=== PATIENT | female | born 1960 | race Caucasian/White ===

== ENCOUNTER 2024-05-26 20:40 | Inpatient (IN) | payer MEDICAID, SELFPAY ==
[2024-05-26 20:40] VITALS: BMI 23.7
--- NOTE | 2024-05-26 21:23 | XR_ITS ---
Examination: PA chest single view Technique: Upright PA chest single view Exam date and time: May 26, 2024 2140 hrs. Comparison September 19, 2017 Indications: Smoking history 10 years coughing 4 days Findings: Mild pneumonia right base and right middle lobe Mild prominence cardiac contour Right subclavian Port-A-Cath tip satisfactory position No pulmonary edema Impression: Mild pneumonia right middle lobe and right base
--- NOTE | 2024-05-26 21:24 | XR_ITS ---
Examination: CT abdomen with intravenous contrast CT pelvis with intravenous contrast 2-D coronal reconstructions 2-D sagittal reconstructions Date and time of exam:May 26, 2024 10:40 PM Indications: Left lower abdominal pain beginning today, history kidney stones. CTDI: vol (mGy) 8.5 DLP: (mGycm) 560 Technique: Multiple axial sections of the abdomen and pelvis have been obtained. 64 slice high-resolution scanner used. 3 mm axial sections have been obtained, post intravenous injection 60 cc [id number] 2-D sagittal, coronal reconstructions obtained. Low dose protocols were performed. One or more of the following dose reduction techniques were used; automated exposure control, adjustment of the mA and/or KV according to patient size, use of iterative reconstruction technique. Findings: No focal liver or splenic lesions No gallstones No pancreatic or adrenal mass Severe scarring left kidney 2 mm left renal calculus Mild thickening left pelvicalyceal system and left are consistent with pyelonephritis Aorta not enlarged Colonic diverticulosis, no diverticulitis Bladder intact Fat-containing inguinal hernias Moderate disc narrowing L5-S1 Advanced narrowing right hip joint Impression: Severe parenchymal scarring left kidney 2 mm left renal calculus Left pyelonephritis
--- NOTE | 2024-05-26 21:26 | PD.EDABDPN ---
ED Abdominal Pain RME/HPI General Chief Complaint: Abdominal Pain Stated complaint: SHANNEN FLANK PAIN HX OF KIDNEY STONES Time seen by provider: 05/26/24 20:53 Arrival date/time: 05/26/24 20:40 RME / HPI RME / HPI narrative: 63-year-old female patient was brought in by family for evaluation regarding left lower quadrant pain. Onset of symptoms for several hours as sudden onset of left lower quadrant pain, described as sharp pain, severity moderate pain radiates to the left flank. Denies any vomiting.. Patient also complained of cough for several days, no fever no chest pain no other complaints noted. No medications taken prior to arrival. She has a history of kidney stone and diverticulitis in the past. Related Data Home Medications ?Medication ?Instructions ?Recorded ?Confirmed apixaban 5 mg tablet (Eliquis) 5 mg PO BID 06/09/23 08/20/23 hydroxyzine HCl 10 mg tablet 10 mg PO BID 06/09/23 08/20/23 losartan 100 mg tablet (Cozaar) 100 mg PO DAILY 06/09/23 08/20/23 metoprolol tartrate 25 mg tablet 25 mg PO HS 06/09/23 08/20/23 mirtazapine 30 mg tablet 60 mg PO HS 08/20/23 08/20/23 ondansetron 4 mg disintegrating 4 mg PO Q8H PRN Nausea And Vomiting 08/20/23 08/20/23 tablet rosuvastatin 10 mg tablet 10 mg PO HS 08/20/23 08/20/23 spironolactone 25 mg tablet 25 mg PO DAILY 08/20/23 08/20/23 Previous Rx's ?Medication ?Instructions ?Recorded omeprazole 20 mg capsule,delayed 20 mg PO QDAY #30 caps 08/14/23 release levofloxacin 750 mg tablet 750 mg PO QDAY pyelonephritis #5 08/21/23 tabs tamsulosin 0.4 mg capsule 0.4 mg PO QDAY dysuria, hesitancy 08/21/23 #7 caps acetaminophen 325 mg tablet (Aphen) 650 mg (2 x 325 mg) PO QID PRN 08/25/23 pain #60 tabs ciprofloxacin HCl 500 mg tablet 500 mg PO BID #14 tabs 09/14/23 polyethylene glycol 3350 17 gram 17 g PO BID #30 ea 08/08/24 oral powder packet (Miralax) Allergies Allergy/AdvReac Type Severity Reaction Status Date / Time amoxicillin Allergy Severe ITCHY Verified 05/26/24 20:42 ceftriaxone (From Rocephin) Allergy Severe Swelling Verified 05/26/24 20:42 of Lip/Tongue/Throat cephalexin Allergy Severe Anaphylaxis Verified 05/26/24 20:42 dicyclomine (From Bentyl) Allergy Severe Rash Verified 05/26/24 20:42 hydrocodone Allergy Severe GI UPSET Verified 05/26/24 20:42 ibuprofen Allergy Severe Abdominal Verified 05/26/24 20:42 Pain ketorolac (From Toradol) Allergy Severe Hives Verified 05/26/24 20:42 meropenem Allergy Severe Anaphylaxis Verified 05/26/24 20:42 moxifloxacin Allergy Severe Hives Verified 05/26/24 20:42 Penicillins Allergy Severe HIVES,SWELL Verified 05/26/24 20:42 ING Sulfa (Sulfonamide Allergy Severe HIVES,SWELL Verified 05/26/24 20:42 Antibiotics) ING tramadol Allergy Severe Shakiness Verified 05/26/24 20:42 Review of Systems Review of Systems Narrative Review of Systems: Review of system reviewed and within normal limits except mentioned in HPI ED Exam Narrative Physical exam: VITAL SIGNS: Reviewed. GENERAL APPEARANCE: Alert and interactive, follows commands, no acute distress, HEAD AND FACE: Non-traumatic. ENT: PERRL, pink conjunctivitis, eyelid no trauma, Mucous membrane moist. NECK: Supple, nontender, no nuchal rigidity. CHEST: No tenderness, no crepitus, no paradoxical movement, no retractions. LUNGS: Clear, well ventilated, symmetric, no rales, no wheezing, no ronchi, no stridor, good breath sounds bilaterally. HEART: Regular rate, regular rhythm, no murmur, no gallops. ABDOMEN: Soft, positive bowel sounds, nondistended, no guarding, left lower quadrant tenderness, no rebound, no masses, RECTAL: Deferred. GENITAL: Deferred. NEUROLOGICAL: Gross motor function intact sensory function intact, Appropriate for age. MUSCULOSKELETAL: low back nontender, full range of motion. EXTREMITIES: Nontender, full range of motion. SKIN: Color pink, dry, no rash, no lacerations, no abrasions, no contusions. LYMPHATICS: Deferred. Course Quality Measures none Orders Category Date Time Status COVID-19 Screening Questionnaire NOW Care 05/26/24 23:[address] Screening NOW Care 05/26/24 21:25 Active Decision to Admit X1 Care 05/26/24 23:[address] abdomen pelvis w con Stat Exams 05/26/24 21:24 Completed XR chest 1V Stat Exams 05/26/24 21:23 Completed CBC Stat Lab 05/26/24 21:52 Completed Comprehensive Metabolic Panel Stat Lab 05/26/24 21:52 Completed Lipase Stat Lab 05/26/24 21:52 Completed Prothrombin Time with INR Stat Lab 05/26/24 21:52 Completed UA, C/S IF [Urinalysis, C/S if Indicated] Stat Lab 05/26/24 21:42 Completed Levofloxacin/D5w 750Mg Ivpb [Levaquin Ivpb] Med 05/26/24 23:49 Ordered 750 mg in 150 ml IV X1 Morphine Inj Med 05/26/24 23:48 Once 4 mg IVP X1 ONE Morphine Inj Med 05/26/24 21:25 Discontinued 5 mg IVP X1 ONE Ondansetron Inj [Zofran Inj] Med 05/26/24 21:24 Discontinued 4 mg IV X1 ONE Sodium Chloride 0.9% 1000 ml [Ns] 1,000 ml Med 05/26/24 23:50 Ordered IV 999 mls/hr Vital Signs Vital signs: Vital Signs Temperature 98 F 05/26/24 21:31 Pulse Rate 101 H 05/26/24 21:31 Respiratory Rate 18 05/26/24 21:31 Blood Pressure 138/75 H 05/26/24 21:31 Pulse Oximetry (%) 97 05/26/24 21:31 Abdominal Pain MDM MDM Narrative MDM Narrative:: 63-year-old female patient was brought in by family for evaluation regarding left lower quadrant pain. Onset of symptoms for several hours as sudden onset of left lower quadrant pain, described as sharp pain, severity moderate pain radiates to the left flank. Denies any vomiting.. Patient also complained of cough for several days, no fever no chest pain no other complaints noted. No medications taken prior to arrival. She has a history of kidney stone and diverticulitis in the past. Patient's workup is significant for leukocytosis of 13.3 urinalysis significant for UTI CT scan of the abdomen pelvis showed Severe parenchymal scarring left kidney 2 mm left renal calculus Left pyelonephritis Chest x-ray showed Mild pneumonia right middle lobe and right base Care discussed with hospitalist Dr. Jo, who admitted the patient. Patient data External records reviewed:: None Clinical information provided by:: patient Social determinants that could affect healthcare access:: none Patient has the following chronic illnesses:: Hypertension, How is presenting disease/condition affected by chronic disease/condition?: uneffected by Evaluation data The following diagnostics were reviewed and interpreted by me:: lab results and radiology exam(s) Lab and/or radiology exams considered but not ordered:: None Interpretation Summary: See results in [facility] Medications / Prescriptions Medications or Prescriptions considered but not ordered:: None Medication administrations:: Medication Administration History Levofloxacin/Dextrose (Levaquin Ivpb) 750 mg in 150 mls @ 100 mls/hr IV X1 ONE Stop: 05/27/24 01:18 Sodium Chloride (Ns) 1,000 mls @ 999 mls/hr IV .Q1H1M ONE Stop: 05/27/24 00:50 Morphine Sulfate (Morphine Sulf Inj 10 Mg/Ml Vial) 4 mg IVP X1 ONE Stop: 05/26/24 23:49 Discontinued Medications Morphine Sulfate (Morphine Sulf Inj 10 Mg/Ml Vial) 5 mg IVP X1 ONE Stop: 05/26/24 21:26 Last Admin: 05/26/24 21:55 Dose: 5 mg Documented By: PINOR Ondansetron HCl (Ondansetron Inj 2 Mg/Ml Inj 2 Ml) 4 mg IV X1 ONE; Protocol Stop: 05/26/24 21:25 Last Admin: 05/26/24 21:55 Dose: 4 mg Documented By: PINOR IV fluids, IV Levaquin, morphine and Zofran Consultations Consultation(s) initiated? (list below): No Diagnosis Differential diagnosis abdominal pain: other (Acute pyelonephritis, pneumonia, flank pain) Most likely diagnosis given after review of the tests above:: Acute pyelonephritis, pneumonia, flank pain Admission Indicated Admission indicated?: not indicated Admission Request Was there a request for admission?: Yes Admission Attestation Admission request attestation: Discussed case with [Dr. Jo] from Hospitalist service regarding admission. Discussed patients ED course, exam findings, labs, and radiology results. The Hospitalist [agrees,] to accept the patient for admission. Disposition Plan Disposition Plan: Admit Discharge Plan Plan Patient Disposition: Admit Acute Care w/in Hospital Disposition Comment: Stable Prescriptions/Referrals Prescriptions/Med Rec: No Action ondansetron 4 mg tablet,disintegrating 4 mg PO Q8H PRN (Reason: Nausea And Vomiting) mirtazapine 30 mg tablet 60 mg PO HS rosuvastatin 10 mg tablet 10 mg PO HS Patient Comments: TAKE 1 TABLET BY MOUTH ONCE DAILY spironolactone 25 mg tablet 25 mg PO DAILY Patient Comments: TAKE 1 TABLET BY MOUTH ONCE DAILY levofloxacin 750 mg tablet 750 mg PO QDAY Qty: 5 0RF tamsulosin 0.4 mg capsule 0.4 mg PO QDAY Qty: 7 0RF ciprofloxacin HCl 500 mg tablet 500 mg PO BID Qty: 14 0RF Eliquis 5 mg Tablet 5 mg PO BID losartan [Cozaar] 100 mg Tablet 100 mg PO DAILY metoprolol tartrate 25 mg Tablet 25 mg PO HS hydroxyzine HCl 10 mg Tablet 10 mg PO BID omeprazole 20 mg capsule,delayed release(DR/EC) 20 mg PO QDAY Qty: 30 0RF acetaminophen [Aphen] 325 mg tablet 650 mg PO QID PRN (Reason: pain) Qty: 60 0RF polyethylene glycol 3350 [Miralax] 17 gram powder in packet 17 g PO BID Qty: 30 1RF Rx Instructions: X 2 weeks and then once a day for 1 week. Referrals: Jay Monreal NP [Primary Care Provider] - In 1 week Problem List Clinical Impression: Acute pyelonephritis, Pneumonia Patient/Caregiver Discharge Instructions Print Language: Latvian Stand Alone Forms: [employer] Award Info., Patient Portal Info Letter
[2024-05-26 21:31] VITALS: BP 138/75; PULSE 101; RESP 18; TEMP 36.6; O2SAT 97
[2024-05-26] MEDS: ONDANSETRON INJ 2 MG/ML INJ 2 ML 4 MG IV (21:55)
[2024-05-26] MEDS: MORPHINE SULF INJ 10 MG/ML VIAL 5 MG IVP (21:55)
[2024-05-26 22:05] LABS: Collection Type, Urine Clean Catch; RBC,Urine 0 /hpf (0-3)
[2024-05-26 22:07] LABS: Basophils # (Auto) 0.1 Thou/mm3 (0.0-0.2); Basophils % (Auto) 1 % (0-2.5); Eosinophils # (Auto) 0.4 Thou/mm3 (0.0-0.5); Eosinophils % (Auto) 3 % (0-10); Hematocrit 36.8 % (36.0-46.0); Hemoglobin 12.6 g/dL (12.0-16.0); Immature Granulocytes % (Auto) 1 % (0-0); Lymphocytes # (Auto) 3.8 Thou/mm3 (1.0-4.8); Lymphocytes % (Auto) 29 % (10-50); Mean Corpuscular HGB Conc 34.2 g/dl (31.0-37.0); Mean Corpuscular Hemoglobin 32.2 pg (25.0-35.0); Mean Corpuscular Volume 94 fL (80-100); Monocytes # (Auto) 0.7 Thou/mm3 (0.0-0.8); Monocytes % (Auto) 6 % (0-12); Neutrophils # (Auto) 8.2 Thou/mm3 (1.8-7.7); Neutrophils % (Auto) 62 % (37-80); Nucleated Red Blood Cell % 0 /100 WBC (0); Platelet Count 395 Thou/mm3 (140-440); RDW Standard Deviation 48.2 fL (36.4-46.3); Red Blood Count 3.91 Miln/mm3 (4.00-5.20); White Blood Count 13.3 Thou/mm3 (3.6-11.0)
[2024-05-26 22:26] LABS: Bacteria,Urine 4+; Bilirubin,Urine Negative (Negative); Blood,Urine Negative (Negative); Clarity,Urine Turbid (Clear/Hazy); Color,Urine Lt-Yellow (Lt Yel-Yel); Culture Indicated,Urine Contaminated; Glucose, Urine Negative (Negative); Ketones,Urine Negative (Negative); Leukocyte Esterase,Urine Positive (Negative); Nitrite,Urine Negative (Negative); Protein,Urine Negative (Neg - Trace); Squamous Epithelial Cell,Urine 32 /hpf (0-5); Urobilinogen,Urine Negative mg/dL (0.0-1.0); WBC,Urine 10 /hpf (0-5)
[2024-05-26 22:27] LABS: Anion Gap 5 (7-16); Blood Urea Nitrogen 11 mg/dL (9-23); Chloride 104 mMol/L (98-107); Potassium 3.6 mMol/L (3.4-5.1); Sodium 137 mMol/L (136-145)
[2024-05-26 22:28] LABS: Alanine Aminotransferase 17 U/L (10-49); Albumin, Serum 4.3 gm/dL (3.4-4.8); Albumin/Globulin Ratio 1.5 (1.2-2.2); Alkaline Phosphatase 124 U/L (46-116); Aspartate Amino Transferase 20 U/L (0-34); BUN/Creatinine Ratio 11 Ratio (12-20); Bilirubin,Total 0.2 mg/dL (0.3-1.2); Calcium 10.2 mg/dL (8.3-10.6); Calcium (Corrected) 10.2 mg/dL (8.5-10.1); Estimated Creatinine Clearance 65.2 mL/min (>60); Globulin 2.9 gm/dL (2.3-3.5); Glucose 97 mg/dL (74-106); Lipase 37 U/L (12-53); Osmolality,Calculated 273 (275-295); Total Protein 7.2 gm/dL (5.7-8.2); eGFR > 60 See Note
[2024-05-26 22:31] LABS: INR 0.9 (0.9-1.3); Prothrombin Time 10.3 Seconds (9.0-12.2)
[2024-05-27] VITALS (12 sets, daily range): BP systolic 128–176; BP diastolic 81–103; PULSE 84–115; RESP 15–95; TEMP 36.1–36.9; O2SAT 92–97; BMI 23.8
[2024-05-27] MEDS: SODIUM CHLORIDE 0.9% 1000 ML 1,000 ML 999 ML IV (00:38)
[2024-05-27] MEDS: MORPHINE SULF INJ 10 MG/ML VIAL 4 MG IVP (00:44)
[2024-05-27] MEDS: LEVOFLOXACIN/D5W 750MG IVPB 750 MG/150 ML BAG 100 MG IV ×2 (00:48→21:37)
--- NOTE | 2024-05-27 01:43 | PC.NURSE ---
assuming pt care.
[2024-05-27] MEDS: POTASSIUM CHLORIDE 20 mEq TABCR 40 MEQ PO (04:41)
[2024-05-27] MEDS: DILTIAZEM 30 MG TABLET PO (04:42)
[2024-05-27] MEDS: Magnesium Sulfate 2 GM Ivpb 2 GM/50 ML BAG IV (04:45)
--- NOTE | 2024-05-27 05:06 | PD.RESHP ---
Documentation for date of: 05/27/24 [facility] History of Present Illness Chief complaint: lower abdominal pain, left flank pain History of present illness: The patient is a 63-year-old female with a previous medical history of hypertension, breast cancer, status post partial mastectomy, A-fib on diltiazem and Eliquis, hyperlipidemia, GERD, degenerative disc disease, active smoker who came to the ED on 05/26/24 with complaints of left lower abdominal and left flank pain that started suddenly at approximately noon. She reported that the pain started after she went to the bathroom. She also reported that she has been feeling malaise, nausea, vomiting the day before. She also reports more cough than usual. She also reports being thirsty and being unable to keep down the food due to nausea. Per chart review she had multiple ED visits due to similar symptoms and had received treatment for UTI. Her last visit to the ED was 2 weeks ago, she was discharged on Macrobid and Flagyl, have taken a few days of the antibiotics. She did not notice improvement of her symptoms. She also reports that she is supposed to see urologist in November. ED course: Blood pressure 138/75, heart rate 101. Afebrile, saturating well on room air. Labs significant for WBC count 13.3, sodium 137, potassium 3.6, chloride 104, carbon dioxide 28 creatinine 1.0, EGFR more than 60, glucose 97, corrected calcium 10.2, alkaline phosphatase 124. UA sample was contaminated. Chest x-ray showed mild pneumonia of the right middle lobe and right base. Right subclavian port cath. Abdomen pelvis CT showed severe parenchymal scarring of the left kidney, 2 mm left renal calculus, left pyelonephritis. In the ED she received overall 9 mg of morphine, fluids bolus 1L, ondansetron, levofloxacin. Social history: smokes 1 pack/week, tries to cut down, history of smoking 40 years, denies alcohol intake. Medications: reports taking Eliquis, valsartan, diltiazem, full med rec is pending. Surgical history: Left partial mastectomy, hysterectomy. Allergies: reports allergy to the amoxicillin, ceftriaxone, cephalexin, dicyclomine, hydrocodone, ibuprofen, ketorolac, meropenem, moxifloxacin, penicillin, sulfa drugs, tramadol. Denies allergy to hydromorphone. Patient is going to be admitted for acute pyelonephritis treatment and management. Review of Systems Review of Systems Systems Reviewed: All systems reviewed, normal except as documented Past Medical History Past Medical History NEUROLOGIC: Positive Transient Ischemic Attacks (TIA); Negative Dementia, Alzheimer's Disease, Seizures, Amyotrophic Lateral Sclerosis (ALS/Lina Gehrig's) or Head Trauma CARDIAC: Positive Atrial Fibrillation, Hypercholesterolemia and Hypertension; Negative Cardiac Disorders, Myocardial Infarction, Cardiac Arrhythmia, Angina, Heart Murmur, Coronary Artery Disease, Atherosclerotic Heart Disease, Peripheral Vascular Disease, Aneurysm, Congestive Heart Failure, Congenital Heart Disease, Valvular Heart Disease, Rheumatic Fever, Edema, Pericarditis, Cellulitis, Deep Vein Thrombosis, Hypotension or Varicose Veins RESPIRATORY: Positive Chronic Obstructive Pulmonary Disease (COPD); Negative Asthma GASTROINTESTINAL: Positive Gastrointestinal Disorders, Diverticulitis, Diverticulosis and Gastroesophageal Reflux Disease; Negative Hepatitis, Cirrhosis, Pancreatitis, Celiac Disease, Gall Bladder Disease, Gastrointestinal Bleed, Esophageal Varices, Loera's Esophagus, Colitis, Ulcerative Colitis, Ulcer, Colorectal Cancer, Irritable Bowel, Crohn's Disease, Obstructive Bowel, Hiatal Hernia, Hemorrhoids or Obesity GENITOURINARY: Negative Genitourinary Disorders, Renal Disease or Kidney Stones REPRODUCTIVE: Positive Breast Cancer; Negative Pelvic Inflammatory Disease MUSCULOSKELETAL: Positive Arthritis, Rheumatoid Arthritis, Osteoporosis and Degenerative Disk Disease; Negative Gout, Scoliosis, Fractures, Degenerative Joint Disease, Osteomyelitis or Poliovirus ENT: Negative Cataracts, Glaucoma, Blind, Retinal Detachment, Macular Degeneration, Ear Infection, Deafness, Head Trauma or Eye Prosthesis ENDOCRINE: Negative Endocrine Disorders, Diabetes Mellitus Type 1, Diabetes Mellitus Type 2, Hypoglycemia, Huxford's Disease, Hyperthyroidism, Hypothyroidism, Parathyroid Disease, Pituitary Disease, Systemic Lupus Erythematosus, Syndrome of Inappropriate Antidiuretic Hormone (SIADH), Adrenal Disease or Graves' Disease HEMATOLOGIC: Negative Anemia or Sickle Cell Disease PSYCHO/SOCIAL: Positive Anxiety and Post Traumatic Stress Disorder; Negative Psychiatric Problems or Bipolar Disorder OTHER HISTORY: Positive Hospitalization, Chemotherapy, Chicken Pox, Measles, Rubella (Kinyarwanda Measles), Cancer and Breast Cancer; Negative Autoimmune Disease, Shingles, Falls, Blood Transfusions, Anesthesia Reactions, Organ Transplant, Radiation Therapy, MRSA, VRSA, Vancomycin-Resistant Enterococci, Human Immunodeficiency Virus (HIV), Mumps, Pertussis, Clostridium Difficile, Cervical Cancer, Colorectal Cancer, Lung Cancer or Ovarian Cancer Family History FAMILY HISTORY: Positive Family Psychiatric Problems and Family Cardiac Disorders; Negative Family Respiratory Disorders, Family Gastrointestinal Problems, Family Cancer, Family Surgery or Family Anesthesia Reaction Surgical History SURGICAL: Positive Mastectomy and Hysterectomy; Negative Cardiac Surgery, Pacemaker, Endocrine Surgery, Ear Surgery, Abdominal Surgery, Nephrectomy, Joint Replacement, Neurologic Surgery, Brain Shunt, Section or Organ Transplant Social History SMOKING STATUS: Current every day smoker SECOND HAND EXPOSURE: No SUBSTANCE USE: does not use Exam Vital Signs Temp Pulse Resp BP Pulse Ox O2 Del Method 98.4 F 115 H 19 143/99 H 94 L Room Air 05/27/24 01:13 05/27/24 04:42 05/27/24 01:17 05/27/24 04:42 05/27/24 01:17 05/27/24 01:13 Narrative Exam Physical Exam General: Awake and in no acute distress. Conversational and non-toxic appearing. HEENT: Normocephalic, atraumatic, mucous membranes dry. Heart: Regular rate and rhythm, no murmurs. Lungs: Clear to auscultation with no wheezing or crackles. Abdomen: Soft, nondistended. ?Cries in pain during palpation, bilateral CVA tenderness. Neurologic: Alert and oriented x3, no gross neurological deficit, and patient able to move all 4 extremities. Extremities: No edema. Skin: No rash or ecchymoses. Results: Labs 05/27/24 04:35 05/26/24 21:52 Labs: Short CBC 05/26/24 Range/Units 21:52 WBC 13.3 H (3.6-11.0) Thou/mm3 Hgb 12.6 (12.0-16.0) g/dL Hct 36.8 (36.0-46.0) % Plt Count 395 (140-440) Thou/mm3 BMP 05/26/24 21:52 Sodium 137 Potassium 3.6 Chloride 104 Carbon Dioxide 28.0 BUN 11 Creatinine 1.0 Glucose 97 Calcium 10.2 Liver Function 05/26/24 Range/Units 21:52 Total Bilirubin 0.2 L (0.3-1.2) mg/dL AST 20 (0-34) U/L ALT 17 (10-49) U/L Alkaline Phosphatase 124 H (46-116) U/L Albumin 4.3 (3.4-4.8) gm/dL Urine 05/26/24 Range/Units 21:42 Urine Color Lt-Yellow (Lt Yel-Yel) Urine Clarity Turbid A (Clear/Hazy) Urine pH 7.0 (5.0-7.0) Ur Specific [place] 1.010 (1.001-1.035) Urine Protein Negative (Neg - Trace) Urine Glucose (UA) Negative (Negative) Quality Measures Quality Measures VTE prophylaxis Medications Home Medications and Allergies Home Medications ?Medication ?Instructions ?Recorded ?Confirmed ?Type apixaban 5 mg tablet (Eliquis) 5 mg PO BID 06/09/23 08/20/23 History hydroxyzine HCl 10 mg tablet 10 mg PO BID 06/09/23 08/20/23 History losartan 100 mg tablet (Cozaar) 100 mg PO DAILY 06/09/23 08/20/23 History metoprolol tartrate 25 mg tablet 25 mg PO HS 06/09/23 08/20/23 History mirtazapine 30 mg tablet 60 mg PO HS 08/20/23 08/20/23 History ondansetron 4 mg disintegrating 4 mg PO Q8H PRN Nausea And Vomiting 08/20/23 08/20/23 History tablet rosuvastatin 10 mg tablet 10 mg PO HS 08/20/23 08/20/23 History spironolactone 25 mg tablet 25 mg PO DAILY 08/20/23 08/20/23 History diltiazem HCl 120 mg mg PO 05/27/24 History capsule,extended release 24 hr, controlled (DILT-XR) Allergies Allergy/AdvReac Type Severity Reaction Status Date / Time amoxicillin Allergy Severe ITCHY Verified 05/26/24 20:42 ceftriaxone (From Rocephin) Allergy Severe Swelling Verified 05/26/24 20:42 of Lip/Tongue/Throat cephalexin Allergy Severe Anaphylaxis Verified 05/26/24 20:42 dicyclomine (From Bentyl) Allergy Severe Rash Verified 05/26/24 20:42 hydrocodone Allergy Severe GI UPSET Verified 05/26/24 20:42 ibuprofen Allergy Severe Abdominal Verified 05/26/24 20:42 Pain ketorolac (From Toradol) Allergy Severe Hives Verified 05/26/24 20:42 meropenem Allergy Severe Anaphylaxis Verified 05/26/24 20:42 moxifloxacin Allergy Severe Hives Verified 05/26/24 20:42 Penicillins Allergy Severe HIVES,SWELL Verified 05/26/24 20:42 ING Sulfa (Sulfonamide Allergy Severe HIVES,SWELL Verified 05/26/24 20:42 Antibiotics) ING tramadol Allergy Severe Shakiness Verified 05/26/24 20:42 Visit Medications Acetaminophen (Acetaminophen 325 Mg Tablet) 650 mg PO Q4HR PRN PRN Reason: Fever >100.3 or pain Stop: 06/26/24 04:16 Apixaban (Apixaban 2.5 Mg Tablet) 5 mg PO BID KIRA Stop: 06/26/24 08:59 Magnesium Sulfate (Magnesium Sulfate Ivpb) 2 gm in 50 mls @ 25 mls/hr IV X1 ONE Stop: 05/27/24 06:19 Levofloxacin/Dextrose (Levaquin Ivpb) 750 mg in 150 mls @ 100 mls/hr IV QDAY KIRA Stop: 06/03/24 20:59 Magnesium Hydroxide (Milk Of Magnesia Susp 30 Ml Udc) 30 ml PO QDAY PRN; Protocol PRN Reason: CONSTIPATION Stop: 06/26/24 04:16 Ondansetron HCl (Ondansetron Inj 2 Mg/Ml Inj 2 Ml) 4 mg IV Q6H PRN; Protocol PRN Reason: NAUSEA OR VOMITING Stop: 06/26/24 04:16 Sennosides (Senna Tablet) 1 tab PO QDAY PRN; Protocol PRN Reason: constipation Stop: 06/26/24 04:16 Discontinued Medications Acetaminophen (Acetaminophen 325 Mg Tablet) 650 mg PO Q6H PRN PRN Reason: Fever >100.3 or pain Stop: 06/26/24 04:16 Diltiazem HCl (Diltiazem 30 Mg Tablet) 30 mg PO X1 ONE Stop: 05/27/24 04:24 Last Admin: 05/27/24 04:42 Dose: 30 mg Levofloxacin/Dextrose (Levaquin Ivpb) 750 mg in 150 mls @ 100 mls/hr IV X1 ONE Stop: 05/27/24 01:18 Last Infusion: 05/27/24 02:18 Dose: Infused Sodium Chloride (Ns) 1,000 mls @ 999 mls/hr IV .Q1H1M ONE Stop: 05/27/24 00:50 Last Infusion: 05/27/24 01:45 Dose: Infused Morphine Sulfate (Morphine Sulf Inj 10 Mg/Ml Vial) 5 mg IVP X1 ONE Stop: 05/26/24 21:26 Last Admin: 05/26/24 21:55 Dose: 5 mg Morphine Sulfate (Morphine Sulf Inj 10 Mg/Ml Vial) 4 mg IVP X1 ONE Stop: 05/26/24 23:49 Last Admin: 05/27/24 00:44 Dose: 4 mg Ondansetron HCl (Ondansetron Inj 2 Mg/Ml Inj 2 Ml) 4 mg IV X1 ONE; Protocol Stop: 05/26/24 21:25 Last Admin: 05/26/24 21:55 Dose: 4 mg Potassium Chloride (Potassium Chloride 20 Meq Tabcr) 40 meq PO X1 ONE Stop: 05/27/24 04:20 Last Admin: 05/27/24 04:41 Dose: 40 meq Rivaroxaban (Rivaroxaban 10 Mg Tablet) 5 mg PO BID KIRA Stop: 06/26/24 08:59 Assessment & Plan Plan The patient is a 63-year-old female with a previous medical history of hypertension, breast cancer, status post partial mastectomy, A-fib on diltiazem and Eliquis, hyperlipidemia, GERD, degenerative disc disease, active smoker who came to the ED on 05/26/24 with complaints of left lower abdominal and left flank pain that started suddenly at approximately noon. Patient is going to be admitted for acute pyelonephritis treatment and management. #Acute pyelonephritis #Nonobstructive renal calculus Patient reports that she has been coming to the ED at least 4 times a year due to her symptoms. During her last ED visit she was prescribed Macrobid and Flagyl with no effect. Previous urine cultures grew Klebsiella pneumonia and strep agalactiae sensitive to levofloxacin. Imaging showed 2mm calculus in the left kidney. Plan: ? Levofloxacin 750 mg from 05/26/2024?current ? Urine cultures ordered ? Blood cultures ordered ?Maintenance fluids at 75 mL/h - pain control with Tylenol - encourage oral rehydration #CAP Patient reports more cough than usual, imaging showed signs of pneumonia. Saturating well on room air. Auscultation unremarkable. Plan: - Levofloxacin 05/26/24-current #History of A-fib Rate and rhythm controlled. Plan: ? Resumed Eliquis ? Consider resuming diltiazem - monitor daily CMP, keep K above 4 amd Mg above 2 - med rec is pending #Hypertension ? Consider resuming home Losartan #Active smoker Patient declined nicotine patch. #GERD Plan: - pantoprazole 40 qday Health maintenance: FEN: cardiac diet DVT prophylaxis: Eliquis 5 mg BID GI prophylaxis: pantoprazole 40 mg qday Dispo: medsurg CODE STATUS: Full code Plan of care discussed with attending Dr. Nails. Lizet Sebastian MD, PGY 1. Attending Provider Attestation/Addendum I have examined the patient, reviewed labs and imaging findings, discussed the case with the resident(s), and reviewed entered orders. I agree with the plan of care as outlined in this note, with these additional summaries/recommendations: Patient is a 63-year-old female with a medical history of breast cancer status post chemo and partial mastectomies and now in remission, COPD, chronic atrial fibrillation on Eliquis, hyperlipidemia, primary hypertension, GERD, DDD, history of TIA, and diverticulosis who presents to [facility] emergency department on 05/26/2024 with chief complaint of left flank tenderness and productive cough. Of note, there is a decision to admit order at 23: 48 on 05/26/24 from ER provider although hospitalist service was not notified of this patient until 3:48 on 05/27/2024. Nonetheless patient seen at bedside. She endorses left flank pain and productive cough which is worse than usual. CT abdomen and pelvis shows left pyelonephritis and 2 mm nonobstructing left renal calculus. Urinalysis indicative of urinary tract infection. Patient reports she recently completed a course of Macrobid without improvement. Patient was given levofloxacin in the emergency room prior to cultures. Urine culture and blood cultures ordered. Start IV levofloxacin to cover pyelonephritis and community-acquired pneumonia. Chest x-ray shows pneumonia right middle and right base. Patient has significant list of allergies and received multiple doses of morphine in the ED. Patient appears comfortable for now and will proceed with Tylenol. If pain worsens we will consider additional morphine. Patient has chronic atrial fibrillation and resume home diltiazem and Eliquis. DuoNebs as needed for history of COPD. Patient endorses chronic tobacco use although defers nicotine patch for now. Minimal hypercalcemia and started on IV fluids. Resume home antihypertensives, pending medication reconciliation. Patient updated on the plan and in agreement. All questions answered to satisfaction. Please see residents note for additional details and management. Dr. Jesu MD
[2024-05-27 05:09] LABS: Basophils # (Auto) 0.1 Thou/mm3 (0.0-0.2); Basophils % (Auto) 1 % (0-2.5); Eosinophils # (Auto) 0.5 Thou/mm3 (0.0-0.5); Eosinophils % (Auto) 4 % (0-10); Hemoglobin 12.6 g/dL (12.0-16.0); Immature Granulocytes % (Auto) 1 % (0-0); Immature Granulocytes Auto 0.06 Thou/mm3 (0.00-0.00); Lymphocytes % (Auto) 33 % (10-50); Mean Corpuscular HGB Conc 34.1 g/dl (31.0-37.0); Mean Corpuscular Hemoglobin 31.9 pg (25.0-35.0); Mean Corpuscular Volume 94 fL (80-100); Monocytes # (Auto) 0.7 Thou/mm3 (0.0-0.8); Monocytes % (Auto) 6 % (0-12); Neutrophils % (Auto) 57 % (37-80); Nucleated Red Blood Cell % 0 /100 WBC (0); Platelet Count 366 Thou/mm3 (140-440); RDW Standard Deviation 48.4 fL (36.4-46.3); Red Blood Count 3.95 Miln/mm3 (4.00-5.20); White Blood Count 12.3 Thou/mm3 (3.6-11.0)
[2024-05-27] MEDS: ONDANSETRON INJ 2 MG/ML INJ 2 ML 4 MG IV (05:10)
[2024-05-27] MEDS: ACETAMINOPHEN 325 MG TABLET 650 MG PO (05:10)
[2024-05-27] MEDS: SODIUM CHLORIDE 0.9% 1000 ML 1,000 ML 75 ML IV (06:05)
[2024-05-27] MEDS: MORPHINE SULF INJ 10 MG/ML VIAL IVP ×2 (06:29→10:40)
[2024-05-27 06:45] LABS: Anion Gap 8 (7-16); BUN/Creatinine Ratio 11 Ratio (12-20); Blood Urea Nitrogen 10 mg/dL (9-23); Carbon Dioxide 26.3 mMol/L (20.0-31.0); Chloride 109 mMol/L (98-107); Creatinine (Component) 0.9 mg/dL (0.6-1.3); Potassium 4.1 mMol/L (3.4-5.1); Sodium 143 mMol/L (136-145)
[2024-05-27 06:46] LABS: Alanine Aminotransferase 15 U/L (10-49); Albumin, Serum 4.1 gm/dL (3.4-4.8); Albumin/Globulin Ratio 1.5 (1.2-2.2); Alkaline Phosphatase 113 U/L (46-116); Aspartate Amino Transferase 18 U/L (0-34); Bilirubin,Total 0.2 mg/dL (0.3-1.2); Calcium 9.4 mg/dL (8.3-10.6); Calcium (Corrected) 9.4 mg/dL (8.5-10.1); Estimated Creatinine Clearance 72.4 mL/min (>60); Globulin 2.8 gm/dL (2.3-3.5); Glucose 88 mg/dL (74-106); Magnesium 1.7 mg/dL (1.6-2.6); Osmolality,Calculated 282 (275-295); Total Protein 6.9 gm/dL (5.7-8.2); eGFR > 60 See Note
[2024-05-27] MEDS: LOSARTAN POTASSIUM 25 MG TABLET 100 MG PO (10:41)
[2024-05-27] MEDS: APIXABAN 2.5 MG TABLET 5 MG PO ×2 (10:42→21:37)
[2024-05-27] MEDS: NICOTINE PATCH 21 MG/24 HR PATCH.TD24 TOP (10:43)
--- NOTE | 2024-05-27 12:57 | ESPR_ITS ---
<Statement entered by Lázaro Frias MD - 05/28/24 14:22> Patient seen and assessed at bedside. Patient still complaining of abdominal pain. Will continue patient on IV antibiotics and IV pain medication. Pending blood cultures. Pending urine cultures. Case discussed with team. Lázaro Frias MD PGY3 Documentation for date of: 05/27/24 Subjective Subjective Interval history: Patient is seen and examined at bedside Complaining of pain in the left flank and hypogastric region, discomfort while urination Vitals are stable. noted CVA tenderness will continue antibiotics and pain medications as needed Exam Vital Signs Temp Pulse Resp BP Pulse Ox O2 Del Method 97.8 F 86 18 147/101 H 95 Room Air 05/27/24 12:00 05/27/24 12:00 05/27/24 12:00 05/27/24 12:00 05/27/24 12:00 05/27/24 12:00 Narrative Exam General: Awake. HEENT: Normocephalic, atraumatic, mucous membranes moist. Heart: Regular rate and rhythm, no murmurs. Lungs: Clear to auscultation with no wheezing or crackles. Abdomen: Soft, nondistended, nontender, positive bowel sounds. ?No guarding or rebound tenderness. noted left CVA tenderness Neurologic: Alert and oriented x3, no gross neurological deficit, and patient able to move all 4 extremities. Extremities: No edema. Skin: No rash or ecchymoses. Objective Labs 05/28/24 05:11 05/28/24 05:11 Labs: Laboratory Results - last 24 hr 05/26/24 05/26/24 05/27/24 21:42 21:52 04:35 WBC 13.3 H 12.3 H RBC 3.91 L 3.95 L Hgb 12.6 12.6 Hct 36.8 37.0 MCV 94 94 MCH 32.2 31.9 MCHC 34.2 34.1 RDW Std Deviation 48.2 H 48.4 H Plt Count 395 366 Neut % (Auto) 62 57 Lymph % (Auto) 29 33 [place] % (Auto) 6 6 Eos % (Auto) 3 4 Baso % (Auto) 1 1 Neut # (Auto) 8.2 H 7.0 Lymph # (Auto) 3.8 4.0 [place] # (Auto) 0.7 0.7 Eos # (Auto) 0.4 0.5 Baso # (Auto) 0.1 0.1 Immature Gran # (Auto) 0.10 H 0.06 H Absolute Nucleated RBC 0.00 0.00 Immature Gran % 1 H 1 H Nucleated RBC % 0 0 PT 10.3 INR 0.9 Sodium 137 143 Potassium 3.6 4.1 D Chloride 104 109 H Carbon Dioxide 28.0 26.3 Anion Gap 5 L 8 BUN 11 10 Creatinine 1.0 0.9 Estim Creat Clear Calc 65.2 72.4 eGFR > 60 > 60 BUN/Creatinine Ratio 11 L 11 L Glucose 97 88 Calculated Osmolality 273 L 282 Calcium 10.2 9.4 Corrected Calcium 10.2 H 9.4 Magnesium 1.7 Total Bilirubin 0.2 L 0.2 L AST 20 18 ALT 17 15 Alkaline Phosphatase 124 H 113 Total Protein 7.2 6.9 Albumin 4.3 4.1 Globulin 2.9 2.8 Albumin/Globulin Ratio 1.5 1.5 Lipase 37 Ur Collection Type Clean Catch Urine Color Lt-Yellow Urine Clarity Turbid A Urine pH 7.0 Ur Specific [place] 1.010 Urine Protein Negative Urine Glucose (UA) Negative Urine Ketones Negative Urine Blood Negative Urine Nitrite Negative Urine Bilirubin Negative Urine Urobilinogen (Auto) Negative Ur Leukocyte Esterase Positive Urine RBC 0 Urine WBC 10 H Ur Squamous Epith Cells 32 H Urine Bacteria 4+ A Ur Culture Indicated? Contaminated Quality Measures Quality Measures VTE prophylaxis Assessment & Plan Assessment Current Active Medications: Generic Name Dose Route Start Last Admin Trade Name Freq PRN Reason Stop Dose Admin Acetaminophen 650 mg 05/27/24 10:20 Acetaminophen 325 Mg Tablet PO 06/26/24 04:16 Q4HR PRN Fever >100.3 or pain(1-6) Apixaban 5 mg 05/27/24 09:00 05/27/24 10:42 Apixaban 2.5 Mg Tablet PO 06/26/24 08:59 5 mg BID KIRA Administration Guaifenesin 100 mg 05/27/24 05:25 Guaifenesin Syrup 200 Mg/10 Ml Udc PO 06/26/24 05:24 QID PRN COUGH Protocol Levofloxacin/Dextrose 750 mg in 150 mls @ 100 mls/hr 05/27/24 21:00 Levaquin Ivpb IV 06/03/24 20:59 HS KIRA Sodium Chloride 1,000 mls @ 75 mls/hr 05/27/24 05:32 05/27/24 06:05 Ns IV 06/26/24 05:31 75 mls/hr .[id number] KIRA Administration Losartan Potassium 100 mg 05/27/24 10:30 05/27/24 10:41 Losartan Potassium 25 Mg Tablet PO 06/26/24 10:29 100 mg QDAY KIRA Administration Magnesium Hydroxide 30 ml 05/27/24 04:17 Milk Of Magnesia Susp 30 Ml Udc PO 06/26/24 04:16 QDAY PRN CONSTIPATION Protocol Morphine Sulfate 2 mg 05/27/24 11:14 Morphine Sulf Inj 10 Mg/Ml Vial IVP 06/01/24 10:16 Q4HR PRN pain 7-10 Ondansetron HCl 4 mg 05/27/24 04:17 05/27/24 05:10 Ondansetron Inj 2 Mg/Ml Inj 2 Ml IV 06/26/24 04:16 4 mg Q6H PRN Administration NAUSEA OR VOMITING Protocol Sennosides 1 tab 05/27/24 04:17 Senna Tablet PO 06/26/24 04:16 QDAY PRN constipation Protocol Plan The patient is a 63-year-old female with a previous medical history of hypertension, breast cancer, status post partial mastectomy, A-fib on diltiazem and Eliquis, hyperlipidemia, GERD, degenerative disc disease, active smoker who came to the ED on 05/26/24 with complaints of left lower abdominal and left flank pain that started suddenly at approximately noon. Patient is going to be admitted for acute pyelonephritis treatment and management. #Acute pyelonephritis #History of recurrent UTI #Nonobstructive renal calculus Patient reported that she had 2-3 episodes of UTIs once in every 6 months Presented to the hospital with chief complaints of left flank pain radiating to the hypogastric area Also complained of nausea and vomitings, discomfort while urination. Denies fever During her last ED visit she was prescribed Macrobid and Flagyl with no effect. Previous urine cultures grew Klebsiella pneumonia and strep agalactiae sensitive to levofloxacin. Imaging showed 2mm calculus in the left kidney. ? Blood and urine cultures ordered, pending Plan: ? Started on levofloxacin 750 Mg IV daily [05/26-present] - Started on morphine 1 Mg IV as needed every fourth hourly - encourage oral rehydration - Started on phenazopyridine 100 Mg p.o. 3 times daily for 3 days #History of A-fib Rate and rhythm controlled. Plan: ? Resumed Eliquis 5 Mg p.o. twice daily and diltiazem 120 Mg daily #Hypertension ? Resumed her home losartan 100mg p.o. qday - Will monitor blood pressures and titrate medications as needed #Active smoker Nicotine patch of 21 Mg is given to the patient Counseled on smoking cessation #GERD Plan: - pantoprazole 40 qday Health maintenance: FEN: cardiac diet DVT prophylaxis: Eliquis 5 mg BID GI prophylaxis: pantoprazole 40 mg qday Dispo: medsurg CODE STATUS: Full code Patient plan of care was discussed with the attending physician, Dr. Oreilly and senior resident Dr. Rodriguez Duff, PGY1 Attending Provider Attestation/Addendum Clarice Fontana, , attest that I was physically present for the king portions of the service and evaluated the patient with the resident and I reviewed and discussed the case with the resident and agree with the resident's findings and plans of care as documented above Patient seen and evaluated this AM. She complains of pain in her LLQ, tender to palpation. Abdomen is not distended and is soft. Patient states she has a lot of allergies and takes morphine and dilaudid at home. However, upon further questioning, patient states that she suffers from chronic pain and does not have a PCP. She receives her prescriptions for pain from EDs. Will order morphine 2mg IV as needed for pyelonephritis. Will await urine cultures and narrow abx coverage as per cultures and sensitivities.
[2024-05-27] MEDS: MORPHINE SULF INJ 10 MG/ML VIAL 2 MG IVP ×3 (14:25→22:25)
[2024-05-27 17:10] LABS: Amphetamine/Methamp Scrn,U Negative (Negative); Barbiturate Screen,Urine Negative (Negative); Benzodiazepines Screen,Urine Negative (Negative); Benzoylecgonine Screen, Ur Negative (Negative); Fentanyl Screen,Urine Positive (Negative); Opiate Screen,Urine Positive (Negative); THC Screen,Urine Negative (Negative)
[2024-05-27] MEDS: DILTIAZEM CD 120 MG CAPCR PO (19:44)
[2024-05-28] VITALS (12 sets, daily range): BP systolic 141–158; BP diastolic 79–99; PULSE 77–87; RESP 13–99; TEMP 35.4–36.9; O2SAT 94–97
[2024-05-28] MEDS: MORPHINE SULF INJ 10 MG/ML VIAL 2 MG IVP ×5 (02:22→19:49)
--- NOTE | 2024-05-28 03:55 | PC.NURSE ---
called Dr. Sebastian regarding patient's blood cultures came back gram positive cocci in anerobic bottle.
[2024-05-28 06:17] LABS: Basophils % (Auto) 1 % (0-2.5); Eosinophils # (Auto) 0.3 Thou/mm3 (0.0-0.5); Eosinophils % (Auto) 4 % (0-10); Hematocrit 35.7 % (36.0-46.0); Immature Granulocytes % (Auto) 1 % (0-0); Immature Granulocytes Auto 0.05 Thou/mm3 (0.00-0.00); Lymphocytes # (Auto) 2.6 Thou/mm3 (1.0-4.8); Lymphocytes % (Auto) 32 % (10-50); Mean Corpuscular HGB Conc 33.6 g/dl (31.0-37.0); Mean Corpuscular Hemoglobin 31.7 pg (25.0-35.0); Mean Corpuscular Volume 94 fL (80-100); Monocytes # (Auto) 0.5 Thou/mm3 (0.0-0.8); Monocytes % (Auto) 6 % (0-12); Neutrophils # (Auto) 4.6 Thou/mm3 (1.8-7.7); Neutrophils % (Auto) 57 % (37-80); Nucleated Red Blood Cell % 0 /100 WBC (0); Platelet Count 326 Thou/mm3 (140-440); RDW Standard Deviation 48.4 fL (36.4-46.3); Red Blood Count 3.79 Miln/mm3 (4.00-5.20); White Blood Count 8.1 Thou/mm3 (3.6-11.0)
[2024-05-28 06:59] LABS: Alanine Aminotransferase 14 U/L (10-49); Albumin, Serum 3.9 gm/dL (3.4-4.8); Albumin/Globulin Ratio 1.5 (1.2-2.2); Alkaline Phosphatase 104 U/L (46-116); Anion Gap 5 (7-16); Aspartate Amino Transferase 18 U/L (0-34); BUN/Creatinine Ratio 10 Ratio (12-20); Bilirubin,Total 0.3 mg/dL (0.3-1.2); Blood Urea Nitrogen 7 mg/dL (9-23); Calcium 9.2 mg/dL (8.3-10.6); Calcium (Corrected) 9.3 mg/dL (8.5-10.1); Carbon Dioxide 29.8 mMol/L (20.0-31.0); Chloride 103 mMol/L (98-107); Creatinine (Component) 0.7 mg/dL (0.6-1.3); Estimated Creatinine Clearance 93.1 mL/min (>60); Globulin 2.6 gm/dL (2.3-3.5); Glucose 84 mg/dL (74-106); Magnesium 1.8 mg/dL (1.6-2.6); Osmolality,Calculated 272 (275-295); Phosphorous 3.3 mg/dL (2.4-5.1); Potassium 3.4 mMol/L (3.4-5.1); Sodium 138 mMol/L (136-145); Total Protein 6.5 gm/dL (5.7-8.2); eGFR > 60 See Note
[2024-05-28] MEDS: LOSARTAN POTASSIUM 25 MG TABLET 100 MG PO (08:27)
[2024-05-28] MEDS: APIXABAN 2.5 MG TABLET 5 MG PO ×2 (08:27→20:01)
[2024-05-28] MEDS: PHENAZOPYRIDINE HCL 100 MG TABLET PO ×3 (08:28→17:58)
[2024-05-28] MEDS: DILTIAZEM CD 120 MG CAPCR PO (08:28)
--- NOTE | 2024-05-28 08:59 | EKG_ITS ---
[facility] Test Date: 2024-05-28 Pat Name: ESTEBAN MCCORMACK [facility] Painter Spray: [place] : 1960 Requested By: Mika Duff Order Number: [id number] Reading MD: Mika Duff Measurements Intervals [place] Rate: 82 P: 36 ID: [id number] QRS: 44 QRSD: 94 T: 36 QT: 408 QTc: 478 Interpretive Statements SINUS RHYTHM Compared to ECG 08/25/2023 10:45:50 No significant changes /store/S0/[id number]
[2024-05-28] MEDS: Magnesium Sulfate 2 GM Ivpb 2 GM/50 ML BAG IV (10:05)
[2024-05-28] MEDS: POTASSIUM CHLORIDE 20 mEq TABCR 40 MEQ PO (10:06)
--- NOTE | 2024-05-28 16:50 | ESPR_ITS ---
<Statement entered by Lázaro Frias MD - 05/28/24 17:33> Patient seen and assessed at bedside this morning. Patient states to be feeling well but still has left lower abdominal pain. Will continue with IV pain medication and IV antibiotics pending blood cultures. Case discussed with team. Lázaro Frias MD PGY3 Documentation for date of: 05/28/24 Subjective Subjective Interval history: Patient is seen and examined at bedside No acute overnight events. Still complaining of pain in the left lower quadrant and left flank Denies nausea, vomitings, febrile episode Vitals are stable except for mildly elevated blood pressures Labs done today are significant for mild hypokalemia, 40 mill equivalents of oral potassium is given and 2 g of magnesium is given Blood cultures, 1 bottle showed GPC which could be contaminant and other bottle did not show any growth, pending final cultures Repeat blood cultures are sent today Will continue antibiotics for now Exam Vital Signs Temp Pulse Resp BP Pulse Ox O2 Del Method 97.1 F 84 13 141/95 H 94 L Room Air 05/28/24 16:00 05/28/24 16:00 05/28/24 16:00 05/28/24 16:00 05/28/24 16:05/28/24 16:00 Narrative Exam General: Awake. HEENT: Normocephalic, atraumatic, mucous membranes moist. Heart: Regular rate and rhythm, no murmurs. Lungs: Clear to auscultation with no wheezing or crackles. Abdomen: Soft, nondistended, nontender, positive bowel sounds. ?No guarding or rebound tenderness. noted left CVA tenderness Neurologic: Alert and oriented x3, no gross neurological deficit, and patient able to move all 4 extremities. Extremities: No edema. Skin: No rash or ecchymoses. Objective Labs 05/29/24 05:36 05/29/24 05:36 Labs: Laboratory Results - last 24 hr 05/27/24 05/28/24 15:40 05:11 WBC 8.1 RBC 3.79 L Hgb 12.0 Hct 35.7 L MCV 94 MCH 31.7 MCHC 33.6 RDW Std Deviation 48.4 H Plt Count 326 D Neut % (Auto) 57 Lymph % (Auto) 32 Rush % (Auto) 6 Eos % (Auto) 4 Baso % (Auto) 1 Neut # (Auto) 4.6 Lymph # (Auto) 2.6 Rush # (Auto) 0.5 Eos # (Auto) 0.3 Baso # (Auto) 0.0 Immature Gran # (Auto) 0.05 H Absolute Nucleated RBC 0.00 Immature Gran % 1 H Nucleated RBC % 0 Sodium 138 Potassium 3.4 D Chloride 103 Carbon Dioxide 29.8 Anion Gap 5 L BUN 7 L Creatinine 0.7 Estim Creat Clear Calc 93.1 eGFR > 60 BUN/Creatinine Ratio 10 L Glucose 84 Calculated Osmolality 272 L Calcium 9.2 Corrected Calcium 9.3 Phosphorus 3.3 Magnesium 1.8 Total Bilirubin 0.3 AST 18 ALT 14 Alkaline Phosphatase 104 Total Protein 6.5 Albumin 3.9 Globulin 2.6 Albumin/Globulin Ratio 1.5 Urine Opiates Screen Positive A Urine Fentanyl Screen Positive A Ur Barbiturates Screen Negative U Amphetamin/Meth Scrn Negative U Benzodiazepines Scrn Negative U Cocaine Metab Screen Negative U Marijuana (THC) Screen Negative Quality Measures Quality Measures VTE prophylaxis Assessment & Plan Assessment Current Active Medications: Generic Name Dose Route Start Last Admin Trade Name Freq PRN Reason Stop Dose Admin Acetaminophen 650 mg 05/27/24 10:20 Acetaminophen 325 Mg Tablet PO 06/26/24 04:16 Q4HR PRN Fever >100.3 or pain(1-6) Apixaban 5 mg 05/27/24 09:00 05/28/24 08:27 Apixaban 2.5 Mg Tablet PO 06/26/24 08:59 5 mg BID KIRA Administration Diltiazem HCl 120 mg 05/27/24 18:45 05/28/24 08:28 Diltiazem Cd 120 Mg Capcr PO 06/26/24 18:44 120 mg QDAY KIRA Administration Guaifenesin 100 mg 05/27/24 05:25 Guaifenesin Syrup 200 Mg/10 Ml Udc PO 06/26/24 05:24 QID PRN COUGH Protocol Levofloxacin/Dextrose 750 mg in 150 mls @ 100 mls/hr 05/27/24 21:00 05/27/24 21:37 Levaquin Ivpb IV 06/03/24 20:59 100 mls/hr HS KIRA Administration Losartan Potassium 100 mg 05/27/24 10:30 05/28/24 08:27 Losartan Potassium 25 Mg Tablet PO 06/26/24 10:29 100 mg QDAY KIRA Administration Magnesium Hydroxide 30 ml 05/27/24 04:17 Milk Of Magnesia Susp 30 Ml Udc PO 06/26/24 04:16 QDAY PRN CONSTIPATION Protocol Morphine Sulfate 2 mg 05/27/24 11:14 05/28/24 15:15 Morphine Sulf Inj 10 Mg/Ml Vial IVP 06/01/24 10:16 2 mg Q4HR PRN Administration pain 7-10 Ondansetron HCl 4 mg 05/27/24 04:17 05/27/24 05:10 Ondansetron Inj 2 Mg/Ml Inj 2 Ml IV 06/26/24 04:16 4 mg Q6H PRN Administration NAUSEA OR VOMITING Protocol Phenazopyridine HCl 100 mg 05/28/24 08:00 05/28/24 12:44 Phenazopyridine Hcl 100 Mg Tablet PO 05/29/24 17:31 100 mg TIDWM KIRA Administration Sennosides 1 tab 05/27/24 04:17 Senna Tablet PO 06/26/24 04:16 QDAY PRN constipation Protocol Plan The patient is a 63-year-old female with a previous medical history of hypertension, breast cancer, status post partial mastectomy, A-fib on diltiazem and Eliquis, hyperlipidemia, GERD, degenerative disc disease, active smoker who came to the ED on 05/26/24 with complaints of left lower abdominal and left flank pain that started suddenly at approximately noon. Patient is going to be admitted for acute pyelonephritis treatment and management. #Acute pyelonephritis #History of recurrent UTI #Nonobstructive renal calculus Patient reported that she had 2-3 episodes of UTIs once in every 6 months Presented to the hospital with chief complaints of left flank pain radiating to the hypogastric area Also complained of nausea and vomitings, discomfort while urination. Denies fever During her last ED visit she was prescribed Macrobid and Flagyl with no effect. Previous urine cultures grew Klebsiella pneumonia and strep agalactiae sensitive to levofloxacin. Imaging showed 2mm calculus in the left kidney. ? Blood and urine cultures ordered, one culture came back as GPC's and the other culture is negative Plan: ? Started on levofloxacin 750 Mg IV daily [05/26-present] - Started on morphine 1 Mg IV as needed every fourth hourly - encourage oral rehydration - Started on phenazopyridine 100 Mg p.o. 3 times daily for 3 days - Repeat blood cultures sent #History of A-fib Rate and rhythm controlled. Plan: ? Resumed Eliquis 5 Mg p.o. twice daily and diltiazem 120 Mg daily #Hypertension ? Resumed her home losartan 100mg p.o. qday - Will monitor blood pressures and titrate medications as needed #Active smoker Nicotine patch of 21 Mg is given to the patient Counseled on smoking cessation #GERD Plan: - pantoprazole 40 qday Health maintenance: FEN: cardiac diet DVT prophylaxis: Eliquis 5 mg BID GI prophylaxis: pantoprazole 40 mg qday Dispo: medsurg CODE STATUS: Full code Patient plan of care was discussed with the attending physician, Dr. Oreilly and senior resident Dr. Rodriguez Duff, PGY1 Attending Provider Attestation/Addendum Addi, Clarice Oreilly, , attest that I was physically present for the king portions of the service and evaluated the patient with the resident and I reviewed and discussed the case with the resident and agree with the resident's findings and plans of care as documented above Patient seen and evaluated this AM. Pt states pain is present, but tolerable. However, patient appeared to express pain before contact/ palpation. Pending final cultures and sensitivites of Ucx. Blood culture 1/2 positive for GPC, suspect possible contaminant. Leukocytosis also improving with GNR abx coverage. Will also repeat Bcx. If negative, more likely contaminant. Anticipate DC within next 24-48h.
[2024-05-28] MEDS: LEVOFLOXACIN/D5W 750MG IVPB 750 MG/150 ML BAG 100 MG IV (20:01)
[2024-05-29] VITALS (10 sets, daily range): BP systolic 138–152; BP diastolic 78–95; PULSE 63–87; RESP 16–98; TEMP 35.9–36.8; O2SAT 92–97
[2024-05-29] MEDS: MORPHINE SULF INJ 10 MG/ML VIAL 2 MG IVP ×4 (00:14→13:09)
[2024-05-29 06:38] LABS: Nucleated Red Blood Cell % 0 /100 WBC (0)
[2024-05-29 06:52] LABS: Basophils # (Auto) 0.1 Thou/mm3 (0.0-0.2); Basophils % (Auto) 1 % (0-2.5); Eosinophils # (Auto) 0.4 Thou/mm3 (0.0-0.5); Eosinophils % (Auto) 4 % (0-10); Hematocrit 37.7 % (36.0-46.0); Hemoglobin 13.1 g/dL (12.0-16.0); Immature Granulocytes % (Auto) 0 % (0-0); Immature Granulocytes Auto 0.03 Thou/mm3 (0.00-0.00); Lymphocytes # (Auto) 2.1 Thou/mm3 (1.0-4.8); Lymphocytes % (Auto) 24 % (10-50); Mean Corpuscular HGB Conc 34.7 g/dl (31.0-37.0); Mean Corpuscular Hemoglobin 31.9 pg (25.0-35.0); Mean Corpuscular Volume 92 fL (80-100); Monocytes # (Auto) 0.5 Thou/mm3 (0.0-0.8); Monocytes % (Auto) 6 % (0-12); Neutrophils % (Auto) 66 % (37-80); Platelet Count 337 Thou/mm3 (140-440); RDW Standard Deviation 46.7 fL (36.4-46.3); Red Blood Count 4.11 Miln/mm3 (4.00-5.20); White Blood Count 9.1 Thou/mm3 (3.6-11.0)
[2024-05-29 07:13] LABS: Alanine Aminotransferase 11 U/L (10-49); Albumin, Serum 4.1 gm/dL (3.4-4.8); Albumin/Globulin Ratio 1.5 (1.2-2.2); Alkaline Phosphatase 108 U/L (46-116); Anion Gap 4 (7-16); Aspartate Amino Transferase 16 U/L (0-34); BUN/Creatinine Ratio 9 Ratio (12-20); Bilirubin,Total 0.4 mg/dL (0.3-1.2); Blood Urea Nitrogen 8 mg/dL (9-23); Calcium 9.7 mg/dL (8.3-10.6); Calcium (Corrected) 9.7 mg/dL (8.5-10.1); Carbon Dioxide 30.5 mMol/L (20.0-31.0); Chloride 105 mMol/L (98-107); Creatinine (Component) 0.9 mg/dL (0.6-1.3); Estimated Creatinine Clearance 72.4 mL/min (>60); Globulin 2.7 gm/dL (2.3-3.5); Glucose 104 mg/dL (74-106); Osmolality,Calculated 275 (275-295); Phosphorous 3.4 mg/dL (2.4-5.1); Potassium 4.3 mMol/L (3.4-5.1); Sodium 139 mMol/L (136-145); Total Protein 6.8 gm/dL (5.7-8.2); eGFR > 60 See Note
[2024-05-29] MEDS: PHENAZOPYRIDINE HCL 100 MG TABLET PO ×3 (09:01→17:52)
[2024-05-29] MEDS: DILTIAZEM CD 120 MG CAPCR PO (09:01)
[2024-05-29] MEDS: APIXABAN 2.5 MG TABLET 5 MG PO (09:01)
[2024-05-29] MEDS: LOSARTAN POTASSIUM 25 MG TABLET 100 MG PO (09:02)
--- NOTE | 2024-05-29 11:57 | PC.SS ---
Radha myers is 63 -year-old female admitted for UTI. SS met with patient at bedside to complete initial assessment and to discuss discharge planning.?Patient confirmed demographic information. Patient reports her son,Abdirashid Myers is surrogate decision maker [phone]. Patient lives at home alone. Patient reports she utilizes a Rollator walker to assist with ambulation. PCP is Jay Monreal.. Pharmacy of choice is [facility] in [place]. Patient will return back home when medically cleared. friend will provide transportation. Next of Kin: Son, Abdirashid Myers [phone] Discharge Plan: Home
--- NOTE | 2024-05-29 16:44 | PC.SS ---
TRANSACTIONAL PARALEGAL informed that patient will require [employer] transportation home. TRANSACTIONAL PARALEGAL confirmed with Med/Surg oil recovery unit operator that [employer] transportation will be arranged by Med/Surg oil recovery unit operator. Bedside nurse to confirm drop off address and provide to oil recovery unit operator. TRANSACTIONAL PARALEGAL to be available to assist.
--- NOTE | 2024-05-29 17:55 | PC.SS ---
OIL WELL SERVICE OPERATOR notified by nursing unit clerk issue with obtaining [employer] transport for the patient. OIL WELL SERVICE OPERATOR logged on to [employer] site to schedule transport. No available drivers. Mode of transportation pending.
--- NOTE | 2024-05-29 18:05 | PC.SS ---
CATERING STAFF MEMBER contacted [facility] to schedule transport. CATERING STAFF MEMBER informed by [facility] staff no available drivers at this time. CATERING STAFF MEMBER updated Med/Surg community development officer. measurement department chief clerk to re-attempt [employer] transport.
--- NOTE | 2024-05-29 19:57 | ESDS_ITS ---
Planned Discharge Date 05/29/24 DS: Providers Provider Date of admission: 05/27/24 05:06 Primary care physician: Jay Mnoreal NP Admitting Provider: Syd Nails MD Attending Provider on Admission: Leanna Ralph MD Consults: 05/27/24 12:23 [facility] Referral - Nutrition Routine Comment: Positive screening for nutrition needs. [facility] Referral - Transportation Routine Comment: Positive screening for transportation needs. Attending Provider on DC: Leanna Ralph MD Discharging Provider: Leanna Ralph MD Anticipated date of discharge: 05/29/24 DS: Diagnosis Problem List Completed Was Problem List Reviewed/Reconciled?: Yes Hospital Course Hospital Course Hospital course: Hospital course: Ms. Mcleod is a 63-year-old female with past medical history of hypertension, breast cancer, status post partial mastectomy, A-fib on diltiazem and Eliquis, hyperlipidemia, GERD, degenerative disc disease, active smoker who came to the ED on 05/26/24 with complaints of left lower abdominal and left flank pain. Patient was started on IV antibiotics, urine culture and blood cultures were obtained, patient's pain was managed with IV pain medication, fluids and phenazopyridine. Initially patient's blood culture 1/2 showed GPC, eventually repeat blood cultures were negative, patient had no fevers and her symptoms had resolved. Patient is an active smoker, was counseled on smoking cessation extensively during the hospital stay, was started on nicotine patches. Patient's other home medications were resumed, with the progression of hospital course patient symptoms improved and further plan is to discharge patient home, patient to follow-up with primary care physician in 1 week and continue levofloxacin 750 mg orally for 10 days. Patient instructed to use topical vaginal estrogen cream and hold sertraline until follow-up with primary care physician. Patient to resume all other home medications, patient responded well to hospital treatment and patient is stable for discharge. Discharge diagnosis: #Acute pyelonephritis #History of recurrent UTI #Nonobstructive renal calculus #Atrial fibrillation, by history #Hypertension #Nicotine dependence, active smoker #Fentanyl dependence #Gastroesophageal reflux disease Case discussed with Attending Dr. Ralph and Dr. Donohue PGY2. Mika Duff PGY1 Disclaimer: This note was dictated by speech recognition. Minor errors in accessibility lift technician may be present due to voice recognition software. Time spent discussing smoking cessation with patient: more than 10 minutes Time Spent with Patient Time attestation: Total time spent providing and/or coordinating discharge services: Time spent: Greater than 30 minutes Exam Vital Signs Temp Pulse Resp BP Pulse Ox O2 Del Method 98.0 F 70 16 138/78 H 97 Room Air 05/29/24 16:00 05/29/24 16:00 05/29/24 16:00 05/29/24 16:00 05/29/24 16:00 05/29/24 16:00 Narrative Exam General: Awake. HEENT: Normocephalic, atraumatic, mucous membranes moist. Heart: Regular rate and rhythm, no murmurs. Lungs: Clear to auscultation with no wheezing or crackles. Abdomen: Soft, nondistended, nontender, positive bowel sounds. ?No guarding or rebound tenderness. noted left CVA tenderness Neurologic: Alert and oriented x3, no gross neurological deficit, and patient able to move all 4 extremities. Extremities: No edema. Skin: No rash or ecchymoses. Discharge Plan Plan Patient Disposition: HOME (Self Care) Disposition Comment: Stable Care Plan Goals: -Follow-up with PCP within 1 week of discharge. If you do not have appointment, please follow-up [facility] with Dr. Duff. Call [phone] to make an appointment. -Recommended to continue levofloxacin 750mg orally for 10days and topical vaginal estrofen cream everyday -Hold sertraline till PCP visit -Continue rest of the home medications -Return to ED if symptoms persist or return Prescriptions/Referrals Prescriptions/Med Rec: New levofloxacin 750 mg tablet 750 mg PO QDAY 10 Days Qty: 10 0RF conjugated estrogens 0.625 mg/gram cream 0.1 mg topical QDAY Qty: 30 0RF Continued ondansetron 4 mg tablet,disintegrating 4 mg PO Q8H PRN (Reason: Nausea And Vomiting) mirtazapine 30 mg tablet 60 mg PO HS rosuvastatin 10 mg tablet 10 mg PO HS Patient Comments: TAKE 1 TABLET BY MOUTH ONCE DAILY spironolactone 25 mg tablet 25 mg PO DAILY Patient Comments: TAKE 1 TABLET BY MOUTH ONCE DAILY levofloxacin 750 mg tablet 750 mg PO QDAY Qty: 5 0RF tamsulosin 0.4 mg capsule 0.4 mg PO QDAY Qty: 7 0RF Eliquis 5 mg Tablet 5 mg PO BID losartan [Cozaar] 100 mg Tablet 100 mg PO DAILY metoprolol tartrate 25 mg Tablet 25 mg PO HS hydroxyzine HCl 10 mg Tablet 10 mg PO BID omeprazole 20 mg capsule,delayed release(DR/EC) 20 mg PO QDAY Qty: 30 0RF acetaminophen [Aphen] 325 mg tablet 650 mg PO QID PRN (Reason: pain) Qty: 60 0RF polyethylene glycol 3350 [Miralax] 17 gram powder in packet 17 g PO BID Qty: 30 1RF Rx Instructions: X 2 weeks and then once a day for 1 week. diltiazem HCl [DILT-XR] 120 mg capsule,ext.rel 24h degradable PO amitriptyline 100 mg tablet 100 mg PO .qhs Patient Comments: TAKE ONE TABLET BY MOUTH AT BEDTIME NEEDED Held sertraline 100 mg tablet 100 mg PO QHSPRN Hold Instructions: Resume on 06/16/24. till antibiotic course is done and sees a PCP Patient Comments: TAKE ONE TABLET BY MOUTH AT BEDTIME Discontinued ciprofloxacin HCl 500 mg tablet 500 mg PO BID Qty: 14 0RF Referrals: Jay Monreal NP [Primary Care Provider] - Patient/Caregiver Discharge Instructions Education Materials: Understanding Urinary Tract ..., When to Use Antibiotics Print Language: Nigerian Stand Alone Forms: [facility] Award Info., Patient Portal Info Letter Discharge Order Discharge Orders: Discharge (Routine); Ordered 05/29/24 Ordered By: Mika Duff Quality Discharge Quality Measures VTE prophylaxis
== END 2024-05-29 18:40 | disposition home or self-care (01) | DRG 463 ==
LOC: SERX 23:50 → SERHOLD 05-27 05:09 → S3SX 05-27 11:17
PROVIDERS: Nurse Practitioner Family; Admitting Provider Student in an Organized Health Care Education/Training Program; Emergency Provider Emergency Medicine; PCP Nurse Practitioner Family; Visit Provider Internal Medicine
DX: N10 Acute pyelonephritis (principal); F17.210 Nicotine dependence, cigarettes, uncomplicated; I10 Essential (primary) hypertension; Z85.3 Personal history of malignant neoplasm of breast; Z90.10 Acquired absence of unspecified breast and nipple; I48.20 Chronic atrial fibrillation, unspecified; E78.5 Hyperlipidemia, unspecified; K21.9 Gastro-esophageal reflux disease without esophagitis; N20.0 Calculus of kidney; J18.9 Pneumonia, unspecified organism; J44.0 Chronic obstructive pulmonary disease with (acute) lower respiratory infection; Z92.21 Personal history of antineoplastic chemotherapy; Z79.01 Long term (current) use of anticoagulants; E83.52 Hypercalcemia; E87.6 Hypokalemia; F11.20 Opioid dependence, uncomplicated; Z71.6 Tobacco abuse counseling
CPT/HCPCS: 36415; 71045; 74177; 80053; 80307; 81001; 83690; 83735; 84100; 85025; 85610; 87040; 87077; 87086; 87186; 87811; 93005; 93225; A4649; J1956; J2270; J2405; J3475; J7030; Q9967; A9270

== ENCOUNTER 2024-07-26 15:07 | Emergency (ER) | payer MEDICAID, SELFPAY ==
[2024-07-26 15:21] VITALS: BP 144/87; PULSE 83; RESP 18; TEMP 36.9; O2SAT 98; BMI 23.7
--- NOTE | 2024-07-26 15:44 | EKG_ITS ---
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
--- NOTE | 2024-07-26 15:46 | XR_ITS ---
Examination: CT abdomen and pelvis without contrast. Coronal 3-D reconstructions. Sagittal 2-D reconstructions. Date and time of exam:July 26, 2024 1603 hours INDICATIONS: History left-sided flank pain today, history kidney stones CTDI: vol (mGy): 7.66 DLP: (mGycm): 455 Technique: Axial images of the abdomen have been obtained, 3 mm slice thickness Intravenous contrast material has not been administered. Low dose protocols were performed. One or more of the following dose reduction techniques were used; automated exposure control, adjustment of the mA and/or KV according to patient size, use of iterative reconstruction technique. Findings: Comparison May 26, 2024 No focal liver or splenic lesions No gallstones No pancreatic or adrenal mass Severe scarring left kidney, 2 mm 5 mm left renal calculi No hydronephrosis or ureteral calculi Aorta normal size Normal appendix No bowel obstruction Colonic diverticulosis, no definite diverticulitis Absent uterus No pelvic mass No bladder mass rebound or calculi Fat-containing femoral hernias bilaterally Prominent osteopenia with significant disc narrowing L2-L3, L5-S1 Advanced right hip osteoarthritis IMPRESSION: Severe scarring left kidney, 2 mm, 5 mm nonobstructing left renal calculi No hydronephrosis or renal calculi Normal appendix Fat-containing femoral hernias bilaterally
--- NOTE | 2024-07-26 15:47 | PD.EDABDPN ---
ED Abdominal Pain RME/HPI General Chief Complaint: Abdominal Pain Stated complaint: HTN, left lower abdominal pain Time seen by provider: 07/26/24 15:34 Arrival date/time: 07/26/24 15:07 RME / HPI RME / HPI narrative: 63-year-old female patient with significant history of small bowel obstruction before, kidney stone, came in for evaluation regarding left flank pain. Onset of symptoms since early today as left flank pain, radiating to the left lower abdomen, associated with dysuria, nausea, vomiting cannot take anything down. Patient denies any fever. Denies any other complaints no medications taken prior to arrival Related Data Home Medications ?Medication ?Instructions ?Recorded ?Confirmed apixaban 5 mg tablet (Eliquis) 5 mg PO BID 06/09/23 05/27/24 hydroxyzine HCl 10 mg tablet 10 mg PO BID 06/09/23 08/20/23 losartan 100 mg tablet (Cozaar) 100 mg PO DAILY 06/09/23 05/27/24 metoprolol tartrate 25 mg tablet 25 mg PO HS 06/09/23 08/20/23 mirtazapine 30 mg tablet 60 mg PO HS 08/20/23 08/20/23 ondansetron 4 mg disintegrating 4 mg PO Q8H PRN Nausea And Vomiting 08/20/23 08/20/23 tablet rosuvastatin 10 mg tablet 10 mg PO HS 08/20/23 08/20/23 spironolactone 25 mg tablet 25 mg PO DAILY 08/20/23 08/20/23 amitriptyline 100 mg tablet 100 mg PO .qhs 05/27/24 05/27/24 diltiazem HCl 120 mg mg PO 05/27/24 capsule,extended release 24 hr, controlled (DILT-XR) sertraline 100 mg tablet 100 mg PO QHSPRN 05/27/24 05/27/24 Held on 05/29/24. Instructions: Resume on 06/16/24. till antibiotic course is done and sees a PCP Previous Rx's ?Medication ?Instructions ?Recorded omeprazole 20 mg capsule,delayed 20 mg PO QDAY #30 caps 08/14/23 release levofloxacin 750 mg tablet 750 mg PO QDAY pyelonephritis #5 08/21/23 tabs tamsulosin 0.4 mg capsule 0.4 mg PO QDAY dysuria, hesitancy 08/21/23 #7 caps acetaminophen 325 mg tablet (Aphen) 650 mg (2 x 325 mg) PO QID PRN 08/25/23 pain #60 tabs polyethylene glycol 3350 17 gram 17 g PO BID #30 ea 09/15/23 oral powder packet (Miralax) conjugated estrogens 0.625 mg/gram 0.1 mg topical QDAY #30 grams 05/29/24 vaginal cream ondansetron HCl 4 mg tablet 4 mg PO Q8H PRN nausea and 07/26/24 vomiting 5 days #20 tabs Allergies Allergy/AdvReac Type Severity Reaction Status Date / Time amoxicillin Allergy Severe ITCHY Verified 07/26/24 15:12 ceftriaxone (From Rocephin) Allergy Severe Swelling Verified 07/26/24 15:12 of Lip/Tongue/Throat cephalexin Allergy Severe Anaphylaxis Verified 07/26/24 15:12 dicyclomine (From Bentyl) Allergy Severe Rash Verified 07/26/24 15:12 hydrocodone Allergy Severe GI UPSET Verified 07/26/24 15:12 ibuprofen Allergy Severe Abdominal Verified 07/26/24 15:12 Pain ketorolac (From Toradol) Allergy Severe Hives Verified 07/26/24 15:12 meropenem Allergy Severe Anaphylaxis Verified 07/26/24 15:12 moxifloxacin Allergy Severe Hives Verified 07/26/24 15:12 Penicillins Allergy Severe HIVES,SWELL Verified 07/26/24 15:12 ING Sulfa (Sulfonamide Allergy Severe HIVES,SWELL Verified 07/26/24 15:12 Antibiotics) ING tramadol Allergy Severe Shakiness Verified 07/26/24 15:12 Review of Systems Review of Systems Narrative Review of Systems: Review of system reviewed and within normal limits except mentioned in HPI ED Exam Narrative Physical exam: VITAL SIGNS: Reviewed. GENERAL APPEARANCE: Alert and interactive, follows commands, no acute distress, HEAD AND FACE: Non-traumatic. ENT: PERRL, pink conjunctivitis, eyelid no trauma, Mucous membrane moist. NECK: Supple, nontender, no nuchal rigidity. CHEST: No tenderness, no crepitus, no paradoxical movement, no retractions. LUNGS: Clear, well ventilated, symmetric, no rales, no wheezing, no ronchi, no stridor, good breath sounds bilaterally. HEART: Regular rate, regular rhythm, no murmur, no gallops. ABDOMEN: Soft, positive bowel sounds, nondistended, no guarding, nontender, no rebound, no masses, left flank tenderness, left lower abdominal pain RECTAL: Deferred. GENITAL: Deferred. NEUROLOGICAL: Gross motor function intact sensory function intact, Appropriate for age. MUSCULOSKELETAL: low back nontender, full range of motion. EXTREMITIES: Nontender, full range of motion. SKIN: Color pink, dry, no rash, no lacerations, no abrasions, no contusions. LYMPHATICS: Deferred. Course Quality Measures none Orders Category Date Time Status EKG (ED ONLY) *Do not use* NOW Care 07/26/24 15:[address] abdomen pelvis wo con Stat Exams 07/26/24 15:46 Completed EKG (ED Only) Stat Exams 07/26/24 15:44 Draft CBC Stat Lab 07/26/24 16:22 Completed Comprehensive Metabolic Panel Stat Lab 07/26/24 16:22 Completed Lipase Stat Lab 07/26/24 16:22 Completed Partial Thromboplastin Time Stat Lab 07/26/24 16:22 Completed Troponin I Stat Lab 07/26/24 16:22 Completed Urinalysis, C/S if Indicated Stat Lab 07/26/24 16:25 Completed Urine Culture Stat Lab 07/26/24 16:25 Received Morphine Inj Med 07/26/24 15:44 Discontinued 5 mg IM X1 ONE Morphine Inj Med 07/26/24 18:37 Discontinued 5 mg IM X1 ONE Ondansetron Odt [Zofran Odt] Med 07/26/24 15:44 Discontinued 4 mg PO X1 ONE Vital Signs Vital signs: Vital Signs Temperature 98.4 F 07/26/24 15:21 Pulse Rate 83 07/26/24 15:21 Respiratory Rate 18 07/26/24 15:21 Blood Pressure 144/87 H 07/26/24 15:21 Pulse Oximetry (%) 98 07/26/24 15:21 Oxygen Delivery Method Room Air 07/26/24 15:21 Abdominal Pain MDM MDM Narrative MDM Narrative:: 63-year-old female patient with significant history of small bowel obstruction before, kidney stone, came in for evaluation regarding left flank pain. Onset of symptoms since early today as left flank pain, radiating to the left lower abdomen, associated with dysuria, nausea, vomiting cannot take anything down. Patient denies any fever. Denies any other complaints no medications taken prior to arrival Patient's workup today came back unremarkable no UTI, CT scan of the abdomen and pelvis came back with no acute pathology noted. Results discussed with the patient. Patient was given morphine with significant improvement of pain. Patient data External records reviewed:: None Clinical information provided by:: patient Social determinants that could affect healthcare access:: none Patient has the following chronic illnesses:: Hypertension How is presenting disease/condition affected by chronic disease/condition?: uneffected by Evaluation data The following diagnostics were reviewed and interpreted by me:: lab results and radiology exam(s) Lab and/or radiology exams considered but not ordered:: None Interpretation Summary: See results MDM Medications / Prescriptions Medications or Prescriptions considered but not ordered:: None Medication administrations:: Medication Administration History Discontinued Medications Morphine Sulfate (Morphine Sulf Inj 10 Mg/Ml Vial) 5 mg IM X1 ONE Stop: 07/26/24 15:45 Last Admin: 07/26/24 15:59 Dose: 5 mg Documented By: Morphine Sulfate (Morphine Sulf Inj 10 Mg/Ml Vial) 5 mg IM X1 ONE Stop: 07/26/24 18:38 Last Admin: 07/26/24 19:05 Dose: 5 mg Documented By: Ondansetron HCl (Ondansetron Odt 4 Mg Tabrap) 4 mg PO X1 ONE; Protocol Stop: 07/26/24 15:45 Last Admin: 07/26/24 15:57 Dose: 4 mg Documented By: Morphine Zofran Consultations Consultation(s) initiated? (list below): No Diagnosis Differential diagnosis abdominal pain: abdominal pain, calculus of kidney and other (Acute pyelonephritis, flank pain) Most likely diagnosis given after review of the tests above:: Flank pain Admission Indicated Admission indicated?: not indicated Explain why admission is indicated or not indicated:: Stable Admission Request Was there a request for admission?: No Disposition Plan Disposition Plan: Discharge Discharge Attestation Discharge Attestation: The patient was given an opportunity to ask questions and understood the discharge instructions. Discharge instructions specifically effects, indications for sooner follow up or return to the emergency department, and the expected course of current diagnosis. Patient condition: Stable Discharge Plan Plan Patient Disposition: HOME (Self Care) Discharge Disposition comment: Stable Prescriptions/Referrals Prescriptions/Med Rec: New ondansetron HCl 4 mg tablet 4 mg PO Q8H PRN (Reason: nausea and vomiting) 5 Days Qty: 20 0RF No Action ondansetron 4 mg tablet,disintegrating 4 mg PO Q8H PRN (Reason: Nausea And Vomiting) mirtazapine 30 mg tablet 60 mg PO HS rosuvastatin 10 mg tablet 10 mg PO HS Patient Comments: TAKE 1 TABLET BY MOUTH ONCE DAILY spironolactone 25 mg tablet 25 mg PO DAILY Patient Comments: TAKE 1 TABLET BY MOUTH ONCE DAILY levofloxacin 750 mg tablet 750 mg PO QDAY Qty: 5 0RF tamsulosin 0.4 mg capsule 0.4 mg PO QDAY Qty: 7 0RF Eliquis 5 mg Tablet 5 mg PO BID losartan [Cozaar] 100 mg Tablet 100 mg PO DAILY metoprolol tartrate 25 mg Tablet 25 mg PO HS hydroxyzine HCl 10 mg Tablet 10 mg PO BID omeprazole 20 mg capsule,delayed release(DR/EC) 20 mg PO QDAY Qty: 30 0RF acetaminophen [Aphen] 325 mg tablet 650 mg PO QID PRN (Reason: pain) Qty: 60 0RF polyethylene glycol 3350 [Miralax] 17 gram powder in packet 17 g PO BID Qty: 30 1RF Rx Instructions: X 2 weeks and then once a day for 1 week. diltiazem HCl [DILT-XR] 120 mg capsule,ext.rel 24h degradable PO sertraline 100 mg tablet 100 mg PO QHSPRN Patient Comments: TAKE ONE TABLET BY MOUTH AT BEDTIME amitriptyline 100 mg tablet 100 mg PO .qhs Patient Comments: TAKE ONE TABLET BY MOUTH AT BEDTIME NEEDED conjugated estrogens 0.625 mg/gram cream 0.1 mg topical QDAY Qty: 30 0RF Referrals: No Primary/Family,Physician [Primary Care Provider] - In 1 week Problem List Clinical Impression: Flank pain Patient/Caregiver Discharge Instructions Discharge Activity: activity as tolerated Education Materials: Measuring Your Pain Additional Instructions: Thank you for the opportunity for serving you today. You are stable for discharged . You are advised to: Follow-up with your PCP in 1 to 2 days Return to ED for worsening of symptoms Increase oral fluids Take medication as prescribed Print Language: Croatian Stand Alone Forms: J[employer]i Award Info., Patient Portal Info Letter DIANA/MARIS Supervising Physician DIANA/MARIS Supervising Physician: MD Bella
[2024-07-26] MEDS: ONDANSETRON ODT 4 MG TABRAP PO (15:57)
[2024-07-26] MEDS: MORPHINE SULF INJ 10 MG/ML VIAL 5 MG IM ×2 (15:59→19:05)
[2024-07-26 16:39] LABS: Collection Type, Urine Clean Catch
[2024-07-26 16:47] LABS: Basophils # (Auto) 0.1 Thou/mm3 (0.0-0.2); Basophils % (Auto) 1 % (0-2.5); Eosinophils # (Auto) 0.3 Thou/mm3 (0.0-0.5); Eosinophils % (Auto) 3 % (0-10); Hematocrit 40.2 % (36.0-46.0); Hemoglobin 13.8 g/dL (12.0-16.0); Immature Granulocytes % (Auto) 0 % (0-0); Immature Granulocytes Auto 0.04 Thou/mm3 (0.00-0.00); Lymphocytes # (Auto) 3.3 Thou/mm3 (1.0-4.8); Lymphocytes % (Auto) 33 % (10-50); Mean Corpuscular HGB Conc 34.3 g/dl (31.0-37.0); Mean Corpuscular Hemoglobin 31.7 pg (25.0-35.0); Mean Corpuscular Volume 92 fL (80-100); Monocytes # (Auto) 0.6 Thou/mm3 (0.0-0.8); Monocytes % (Auto) 6 % (0-12); Neutrophils # (Auto) 5.8 Thou/mm3 (1.8-7.7); Neutrophils % (Auto) 57 % (37-80); Nucleated Red Blood Cell % 0 /100 WBC (0); Platelet Count 330 Thou/mm3 (140-440); RDW Standard Deviation 48.9 fL (36.4-46.3); Red Blood Count 4.35 Miln/mm3 (4.00-5.20); White Blood Count 10.1 Thou/mm3 (3.6-11.0)
[2024-07-26 17:02] LABS: Alanine Aminotransferase 11 U/L (10-49); Albumin, Serum 4.5 gm/dL (3.4-4.8); Albumin/Globulin Ratio 1.7 (1.2-2.2); Alkaline Phosphatase 108 U/L (46-116); Anion Gap 7 (7-16); Aspartate Amino Transferase 19 U/L (0-34); BUN/Creatinine Ratio 8 Ratio (12-20); Bilirubin,Total 0.7 mg/dL (0.3-1.2); Blood Urea Nitrogen 7 mg/dL (9-23); Calcium 9.8 mg/dL (8.3-10.6); Calcium (Corrected) 9.8 mg/dL (8.5-10.1); Carbon Dioxide 25.1 mMol/L (20.0-31.0); Chloride 106 mMol/L (98-107); Creatinine (Component) 0.9 mg/dL (0.6-1.3); Estimated Creatinine Clearance 72.4 mL/min (>60); Globulin 2.7 gm/dL (2.3-3.5); Glucose 102 mg/dL (74-106); Lipase 33 U/L (12-53); Osmolality,Calculated 273 (275-295); Potassium 3.6 mMol/L (3.4-5.1); Sodium 138 mMol/L (136-145); Total Protein 7.2 gm/dL (5.7-8.2); Troponin I < 0.020 ng/mL (0.0-0.045); eGFR > 60 See Note
[2024-07-26 17:03] LABS: Bacteria,Urine 1+; Bilirubin,Urine Negative (Negative); Blood,Urine Trace (Negative); Color,Urine Lt-Yellow (Lt Yel-Yel); Glucose, Urine Negative (Negative); Hyaline Casts,Urine < 1 /hpf (0-1); Ketones,Urine Negative (Negative); Leukocyte Esterase,Urine Negative (Negative); Nitrite,Urine Negative (Negative); PH,Urine 6.5 (5.0-7.0); Protein,Urine Negative (Neg - Trace); RBC,Urine 9 /hpf (0-3); Specific Gravity,Urine 1.011 (1.001-1.035); Squamous Epithelial Cell,Urine 8 /hpf (0-5); Urobilinogen,Urine Negative mg/dL (0.0-1.0); WBC,Urine 5 /hpf (0-5)
[2024-07-26 17:26] LABS: Clarity,Urine Hazy (Clear/Hazy); Culture Indicated,Urine Yes
--- NOTE | 2024-07-26 18:45 | PC.CC ---
JEANNAWOtis was consulted regarding transportation for patient. ASW arranged transportation via [facility] [id number].
== END 2024-07-26 19:15 | disposition home or self-care (01) ==
PROVIDERS: Nurse Practitioner Family; Emergency Provider Emergency Medicine
DX: R10.32 Left lower quadrant pain (principal); I10 Essential (primary) hypertension
CPT/HCPCS: 36415; 74176; 80053; 81001; 83690; 84484; 85025; 85730; 87086; 93005; 96372; 99284; J2270; Q0162

== ENCOUNTER 2024-08-11 17:51 | Emergency (ER) | payer MEDICAID, SELFPAY ==
--- NOTE | 2024-08-11 18:23 | XR_ITS ---
Examination: CT abdomen and pelvis without contrast. Coronal 3-D reconstructions. Sagittal 2-D reconstructions. Date and time of exam:August 11, 2024 1831 hours INDICATIONS: Onset left-sided flank pain beginning today, history severe scarring left kidney left renal calculi on CT stone study July 26, 2024 CTDI: vol (mGy): 8.43 DLP: (mGycm): 470 Technique: Axial images of the abdomen have been obtained, 3 mm slice thickness Intravenous contrast material has not been administered. Low dose protocols were performed. One or more of the following dose reduction techniques were used; automated exposure control, adjustment of the mA and/or KV according to patient size, use of iterative reconstruction technique. Findings: No focal liver or splenic lesions Contracted gallbladder No pancreatic mass Severely scarred left kidney with 2 mm 5 mm left renal calculi No hydronephrosis or ureteral calculi Aorta are normal size No bowel obstruction Normal appendix Colonic diverticulosis, no diverticulitis No bladder mass or bladder calculi. No pelvic mass Fat-containing femoral hernias Advanced disc narrowing L2-L3, L5-S1 IMPRESSION: Severe scarring left kidney with nonobstructing left renal calculi No hydronephrosis or ureteral calculi Normal appendix Prominent colonic diverticulosis, no diverticulitis Normal appendix
[2024-08-11 18:26] VITALS: BP 128/77; PULSE 95; RESP 18; TEMP 37.1; O2SAT 97; BMI 23.7
[2024-08-11 18:59] LABS: Collection Type, Urine Clean Catch
[2024-08-11 19:11] LABS: Bacteria,Urine 4+; Bilirubin,Urine Negative (Negative); Blood,Urine Negative (Negative); Clarity,Urine Turbid (Clear/Hazy); Color,Urine Lt-Yellow (Lt Yel-Yel); Glucose, Urine Negative (Negative); Ketones,Urine Negative (Negative); Leukocyte Esterase,Urine Positive (Negative); Nitrite,Urine Negative (Negative); PH,Urine 7.0 (5.0-7.0); Protein,Urine Negative (Neg - Trace); RBC,Urine 2 /hpf (0-3); Specific Gravity,Urine 1.008 (1.001-1.035); Squamous Epithelial Cell,Urine 46 /hpf (0-5); Urobilinogen,Urine Negative mg/dL (0.0-1.0); WBC,Urine 31 /hpf (0-5)
[2024-08-11 19:18] LABS: Basophils # (Auto) 0.1 Thou/mm3 (0.0-0.2); Basophils % (Auto) 1 % (0-2.5); Eosinophils # (Auto) 0.3 Thou/mm3 (0.0-0.5); Eosinophils % (Auto) 3 % (0-10); Hematocrit 35.1 % (36.0-46.0); Hemoglobin 11.9 g/dL (12.0-16.0); Immature Granulocytes Auto 0.04 Thou/mm3 (0.00-0.00); Lymphocytes # (Auto) 3.3 Thou/mm3 (1.0-4.8); Lymphocytes % (Auto) 32 % (10-50); Mean Corpuscular HGB Conc 33.9 g/dl (31.0-37.0); Mean Corpuscular Hemoglobin 31.7 pg (25.0-35.0); Mean Corpuscular Volume 94 fL (80-100); Monocytes # (Auto) 0.6 Thou/mm3 (0.0-0.8); Monocytes % (Auto) 6 % (0-12); Neutrophils # (Auto) 6.0 Thou/mm3 (1.8-7.7); Neutrophils % (Auto) 58 % (37-80); Nucleated Red Blood Cell # 0.00 Thou/mm3 (0.00-0.00); Nucleated Red Blood Cell % 0 /100 WBC (0); Platelet Count 347 Thou/mm3 (140-440); RDW Standard Deviation 51.0 fL (36.4-46.3); Red Blood Count 3.75 Miln/mm3 (4.00-5.20); White Blood Count 10.4 Thou/mm3 (3.6-11.0)
[2024-08-11 19:52] LABS: Alanine Aminotransferase 9 U/L (10-49); Albumin, Serum 4.1 gm/dL (3.4-4.8); Albumin/Globulin Ratio 1.6 (1.2-2.2); Alkaline Phosphatase 100 U/L (46-116); Anion Gap 9 (7-16); Aspartate Amino Transferase 16 U/L (0-34); BUN/Creatinine Ratio 9 Ratio (12-20); Bilirubin,Total 0.2 mg/dL (0.3-1.2); Blood Urea Nitrogen 8 mg/dL (9-23); Calcium 9.7 mg/dL (8.3-10.6); Calcium (Corrected) 9.7 mg/dL (8.5-10.1); Carbon Dioxide 28.2 mMol/L (20.0-31.0); Chloride 105 mMol/L (98-107); Creatinine (Component) 0.9 mg/dL (0.6-1.3); Estimated Creatinine Clearance 72.4 mL/min (>60); Globulin 2.5 gm/dL (2.3-3.5); Glucose 87 mg/dL (74-106); Lipase 33 U/L (12-53); Osmolality,Calculated 280 (275-295); Potassium 4.1 mMol/L (3.4-5.1); Sodium 142 mMol/L (136-145); Total Protein 6.6 gm/dL (5.7-8.2); eGFR > 60 See Note
--- NOTE | 2024-08-11 20:29 | PD.EDFMALE ---
ED Female Urogenital RME/HPI General Chief complaint: Urogenital-Female Stated complaint: Painful urination X 2 days, back pain/abd pain Time Seen by Provider: 08/11/24 18:19 Arrival date/time: 08/11/24 17:51 This is a case of 63-year-old female with history of kidney stone in the past and multiple drug allergies came in in the emergency room due to bilateral flank pain for 2 days radiating to both lower abdomen and lower back associated with painful urination no fever no chills but with no with nausea vomiting no diarrhea no constipation persistence of the symptoms this patient decided to sought consult here in the emergency room patient denies any hematuria Limitations: no limitations Related Data Home Medications ?Medication ?Instructions ?Recorded ?Confirmed apixaban 5 mg tablet (Eliquis) 5 mg PO BID 06/09/23 05/27/24 hydroxyzine HCl 10 mg tablet 10 mg PO BID 06/09/23 08/20/23 losartan 100 mg tablet (Cozaar) 100 mg PO DAILY 06/09/23 05/27/24 metoprolol tartrate 25 mg tablet 25 mg PO HS 06/09/23 08/20/23 mirtazapine 30 mg tablet 60 mg PO HS 08/20/23 08/20/23 ondansetron 4 mg disintegrating 4 mg PO Q8H PRN Nausea And Vomiting 08/20/23 08/20/23 tablet rosuvastatin 10 mg tablet 10 mg PO HS 08/20/23 08/20/23 spironolactone 25 mg tablet 25 mg PO DAILY 08/20/23 08/20/23 amitriptyline 100 mg tablet 100 mg PO .qhs 05/27/24 05/27/24 diltiazem HCl 120 mg mg PO 05/27/24 capsule,extended release 24 hr, controlled (DILT-XR) sertraline 100 mg tablet 100 mg PO QHSPRN 05/27/24 05/27/24 Held on 05/29/24. Instructions: Resume on 06/16/24. till antibiotic course is done and sees a PCP Previous Rx's ?Medication ?Instructions ?Recorded omeprazole 20 mg capsule,delayed 20 mg PO QDAY #30 caps 08/14/23 release levofloxacin 750 mg tablet 750 mg PO QDAY pyelonephritis #5 08/21/23 tabs tamsulosin 0.4 mg capsule 0.4 mg PO QDAY dysuria, hesitancy 08/21/23 #7 caps acetaminophen 325 mg tablet (Aphen) 650 mg (2 x 325 mg) PO QID PRN 08/25/23 pain #60 tabs polyethylene glycol 3350 17 gram 17 g PO BID #30 ea 09/15/23 oral powder packet (Miralax) conjugated estrogens 0.625 mg/gram 0.1 mg topical QDAY #30 grams 05/29/24 vaginal cream acetaminophen 325 mg tablet 650 mg (2 x 325 mg) PO QID PRN 08/11/24 (Tylenol) pain #20 tabs nitrofurantoin 100 mg PO Q12H 7 days #14 caps 08/11/24 monohydrate/macrocrystals 100 mg capsule (Macrobid) ondansetron 4 mg disintegrating 4 mg PO Q8H PRN nausea and 08/11/24 tablet vomiting #20 tabs Allergies Allergy/AdvReac Type Severity Reaction Status Date / Time amoxicillin Allergy Severe ITCHY Verified 08/11/24 17:56 ceftriaxone (From Rocephin) Allergy Severe Swelling Verified 08/11/24 17:56 of Lip/Tongue/Throat cephalexin Allergy Severe Anaphylaxis Verified 08/11/24 17:56 dicyclomine (From Bentyl) Allergy Severe Rash Verified 08/11/24 17:56 hydrocodone Allergy Severe GI UPSET Verified 08/11/24 17:56 ibuprofen Allergy Severe Abdominal Verified 08/11/24 17:56 Pain ketorolac (From Toradol) Allergy Severe Hives Verified 08/11/24 17:56 meropenem Allergy Severe Anaphylaxis Verified 08/11/24 17:56 moxifloxacin Allergy Severe Hives Verified 08/11/24 17:56 Penicillins Allergy Severe HIVES,SWELL Verified 08/11/24 17:56 ING Sulfa (Sulfonamide Allergy Severe HIVES,SWELL Verified 08/11/24 17:56 Antibiotics) ING tramadol Allergy Severe Shakiness Verified 08/11/24 17:56 Review of Systems Review of Systems Systems Reviewed: All systems reviewed, normal except as documented Constitutional Constitutional: Reports system reviewed and no additional complaints, except as documented, Reports as per HPI, Denies chills and Denies fever(s) ENT Ears, Nose, Mouth, and Throat: Denies dysphagia and Denies odynophagia Cardiovascular Cardiovascular: Reports system reviewed and no additional complaints, except as documented and Reports as per HPI Respiratory Respiratory: Reports system reviewed and no additional complaints, except as documented and Reports as per HPI Gastrointestinal Gastrointestinal: Reports system reviewed and no additional complaints, except as documented, Reports as per HPI, Reports abdominal pain, Denies belching, Denies bloating, Denies change in bowel habits, Denies change in stool character, Denies coffee ground emesis, Denies constipation, Denies cramping, Denies diarrhea, Denies dyspepsia, Denies dysphagia, Denies early satiety, Denies excessive flatus, Denies fecal incontinence, Denies heartburn, Denies hematemesis, Denies hematochezia, Denies loose stools, Denies melena, Reports nausea, Denies odynophagia, Denies tenesmus and Reports vomiting Genitourinary Genitourinary: Reports system reviewed and no additional complaints, except as documented, Reports as per HPI, Reports dysuria, Denies vaginal discharge, Denies vaginal dryness, Denies vaginal odor and Denies vaginal pruritus Musculoskeletal Musculoskeletal: Reports system reviewed and no additional complaints, except as documented and Reports as per HPI Neurologic Neurologic: Reports system reviewed and no additional complaints, except as documented and Reports as per HPI Past Medical History Past Medical History NEUROLOGIC: Positive Transient Ischemic Attacks (TIA); Negative Dementia, Alzheimer's Disease, Seizures, Amyotrophic Lateral Sclerosis (ALS/Lina Gehrig's) or Head Trauma CARDIAC: Positive Atrial Fibrillation, Hypercholesterolemia and Hypertension; Negative Cardiac Disorders, Myocardial Infarction, Cardiac Arrhythmia, Angina, Heart Murmur, Coronary Artery Disease, Atherosclerotic Heart Disease, Peripheral Vascular Disease, Aneurysm, Congestive Heart Failure, Congenital Heart Disease, Valvular Heart Disease, Rheumatic Fever, Edema, Pericarditis, Cellulitis, Deep Vein Thrombosis, Hypotension or Varicose Veins RESPIRATORY: Positive Chronic Obstructive Pulmonary Disease (COPD); Negative Asthma GASTROINTESTINAL: Positive Gastrointestinal Disorders, Diverticulitis, Diverticulosis and Gastroesophageal Reflux Disease; Negative Hepatitis, Cirrhosis, Pancreatitis, Celiac Disease, Gall Bladder Disease, Gastrointestinal Bleed, Esophageal Varices, Loera's Esophagus, Colitis, Ulcerative Colitis, Ulcer, Colorectal Cancer, Irritable Bowel, Crohn's Disease, Obstructive Bowel, Hiatal Hernia, Hemorrhoids or Obesity GENITOURINARY: Negative Genitourinary Disorders, Renal Disease or Kidney Stones REPRODUCTIVE: Positive Breast Cancer; Negative Pelvic Inflammatory Disease MUSCULOSKELETAL: Positive Arthritis, Rheumatoid Arthritis, Osteoporosis and Degenerative Disk Disease; Negative Gout, Scoliosis, Fractures, Degenerative Joint Disease, Osteomyelitis or Poliovirus ENT: Negative Cataracts, Glaucoma, Blind, Retinal Detachment, Macular Degeneration, Ear Infection, Deafness, Head Trauma or Eye Prosthesis ENDOCRINE: Negative Endocrine Disorders, Diabetes Mellitus Type 1, Diabetes Mellitus Type 2, Hypoglycemia, [place]'s Disease, Hyperthyroidism, Hypothyroidism, Parathyroid Disease, Pituitary Disease, Systemic Lupus Erythematosus, Syndrome of Inappropriate Antidiuretic Hormone (SIADH), Adrenal Disease or Graves' Disease HEMATOLOGIC: Negative Anemia or Sickle Cell Disease PSYCHO/SOCIAL: Positive Anxiety and Post Traumatic Stress Disorder; Negative Psychiatric Problems or Bipolar Disorder OTHER HISTORY: Positive Hospitalization, Chemotherapy, Chicken Pox, Measles, Rubella (Tamazight Measles), Cancer and Breast Cancer; Negative Autoimmune Disease, Shingles, Falls, Blood Transfusions, Anesthesia Reactions, Organ Transplant, Radiation Therapy, MRSA, VRSA, Vancomycin-Resistant Enterococci, Human Immunodeficiency Virus (HIV), Mumps, Pertussis, Clostridium Difficile, Cervical Cancer, Colorectal Cancer, Lung Cancer or Ovarian Cancer Family History FAMILY HISTORY: Positive Family Psychiatric Problems and Family Cardiac Disorders; Negative Family Respiratory Disorders, Family Gastrointestinal Problems, Family Cancer, Family Surgery or Family Anesthesia Reaction Surgical History SURGICAL: Positive Mastectomy and Hysterectomy; Negative Cardiac Surgery, Pacemaker, Endocrine Surgery, Ear Surgery, Abdominal Surgery, Nephrectomy, Joint Replacement, Neurologic Surgery, Brain Shunt, Section or Organ Transplant Social History SMOKING STATUS: Current every day smoker SECOND HAND EXPOSURE: No SUBSTANCE USE: does not use ED Exam General Limitations: Present no limitations General appearance: Present alert and in no apparent distress Head Head exam: Present atraumatic Eye Eye exam: Present normal appearance, PERRL and EOMI ENT ENT exam: Present normal exam, normal oropharynx and mucous membranes moist Neck Neck exam: Present normal inspection, full ROM and trachea midline; Absent tenderness, meningismus, lymphadenopathy or thyromegaly Chest Chest inspection: Present normal inspection and symmetric chest wall rise; Absent tenderness Respiratory Respiratory exam: Present normal lung sounds bilaterally; Absent respiratory distress, wheezes, stridor, accessory muscle use or prolonged expiratory phase Cardiovascular Cardiovascular exam: Present regular rate, normal rhythm and normal heart sounds; Absent bradycardia, tachycardia, irregular rhythm, systolic murmur or diastolic murmur Abdominal Exam Abdominal exam: Present soft, tenderness (Mild tenderness bilateral flank and suprapubic area no guarding no rebound no rigidity negative psoas negative straight or negative Rovsing's negative McBurney's negative Mehta sign negative CVA tenderness) and normal bowel sounds; Absent distention, guarding, rebound, rigidity, diminished bowel sounds, hyperactive bowel sounds, hypoactive bowel sounds, organomegaly, trauma, incision, psoas sign, obturator sign, Mehta's sign, Rovsing's sign or tenderness at McBurney's Point Abdominal tenderness: Present suprapubic and mild Extremities Exam Extremities exam: Present normal inspection and full ROM Back Exam Back exam: Present normal inspection and full ROM Neurological Exam Neurological exam: Present alert, oriented X3, CN II-XII intact, normal gait and reflexes normal; Absent motor sensory deficit Psychiatric Psychiatric exam: Present normal affect and normal mood Skin Skin exam: Present warm, dry, intact and normal color Course Quality Measures none Orders Category Date Time Status CT abdomen pelvis wo con Stat Exams 08/11/24 18:23 Completed CBC Stat Lab 08/11/24 19:07 Completed Comprehensive Metabolic Panel Stat Lab 08/11/24 19:07 Completed Lipase Stat Lab 08/11/24 19:07 Completed Urinalysis Stat Lab 08/11/24 18:55 Completed Urine Culture Stat Lab 08/11/24 20:31 Ordered Levofloxacin/D5w 500 mg Ivpb [Levaquin Ivpb] Med 08/11/24 20:16 Active 500 mg in 100 ml IV X1 Morphine Inj Med 08/11/24 18:37 Active 4 mg IVP Q1H PRN Ondansetron Inj [Zofran Inj] Med 08/11/24 20:17 Discontinued 4 mg IVP X1 ONE Sodium Chloride 0.9% 1000 ml [Ns] 1,000 ml Med 08/11/24 18:30 Discontinued IV 999 mls/hr Vital Signs Vital signs: Vital Signs Temperature 98.8 F 08/11/24 18:26 Pulse Rate 95 08/11/24 18:26 Respiratory Rate 18 08/11/24 18:26 Blood Pressure 128/77 08/11/24 18:26 Pulse Oximetry (%) 97 08/11/24 18:26 Oxygen Delivery Method Room Air 08/11/24 18:26 Patient is afebrile not tachycardic not tachypneic not hypoxic BP stable Urogenital - Female MDM Narrative MDM Narrative:: This is a case of 63-year-old female with history of kidney stone in the past and multiple drug allergies came in in the emergency room due to bilateral flank pain for 2 days radiating to both lower abdomen and lower back associated with painful urination no fever no chills but with no with nausea vomiting no diarrhea no constipation persistence of the symptoms this patient decided to sought consult here in the emergency room patient denies any hematuria physical examination patient is awake alert oriented not in distress nontoxic looking well-hydrated well-nourished no signs and symptoms of dehydration sepsis lungs sound is clear no crackles no rales no retraction no stridor back exam is normal ROM intact neurovascular intact abdominal exam noted mild tenderness on both flank and suprapubic area no guarding no rebound no rigidity negative psoas negative straight or negative Rovsing's negative McBurney's negative Mehta sign negative CVA tenderness no bladder distention or tenderness blood test showed no leukocytosis no anemia kidney and liver function is normal no electrolyte imbalance lipase is normal urinalysis showed WBC in the urine suggestive of urinary tract infection CT scan showed a small kidney stone diverticulosis DDD of the lumbar patient have multiple allergy I consulted the patient before ordering the medication patient states that she is not allergy to morphine and she had morphine in the past a bolus of normal saline was given and morphine patient was observed for 30 minutes no reaction no allergic reaction no rashes and noted patient has also multiple antibiotic allergy and stated that the only antibiotic that she is not allergy is Levaquin and requested to have Levaquin IV for urinary tract infection and was also given patient condition markedly improved patient pain was improved and resolved I have a long discussion with the patient and the importance to see the urologist was discussed with the patient especially the patient have a big scarring on the kidney already she understood very well that she will follow-up on Tuesday to his urologist for further evaluation and treatment of kidney stone patient will also need to see a neurosurgeon for DDD lumbar to rule out herniated disc by having MRI of the lumbar at this point no signs and symptoms of cauda equina no signs and symptoms of acute abdomen patient will be discharged home with stable condition Patient was discharged with comfortable condition walking with stable gait. Patient verbalized no further complains explained diagnosis and answered patient question. Patient is comfortable with the proposed management plan including the need to follow up with his/her primary care physician and any specialist if applicable Discussed patient for any urgent condition or worsening sx, He/She needed to go to emergency room immediately or call 911. Patient acknowledge the responsibility to follow up as instructed and to monitor her/his symptoms. For any persistence of the symptoms for more than 3-5 days return precaution advised. Discussed the result of the test and was given printed discharge instruction Patient data External records reviewed:: [facility] previous records Clinical information provided by:: patient Social determinants that could affect healthcare access:: none Patient has the following chronic illnesses:: None How is presenting disease/condition affected by chronic disease/condition?: no chronic disease Evaluation data The following diagnostics were reviewed and interpreted by me:: lab results and radiology exam(s) Lab and/or radiology exams considered but not ordered:: Reviewed Interpretation Summary: Reviewed Medications / Prescriptions Medications or Prescriptions considered but not ordered:: Given Medication administrations:: Medication Administration History Levofloxacin/Dextrose (Levaquin Ivpb) 500 mg in 100 mls @ 100 mls/hr IV X1 ONE Stop: 08/11/24 21:15 Morphine Sulfate (Morphine Sulf Inj 10 Mg/Ml Vial) 4 mg IVP Q1H PRN PRN Reason: PAIN Discontinued Medications Sodium Chloride (Ns) 1,000 mls @ 999 mls/hr IV .Q1H1M ONE Stop: 08/11/24 19:30 Ondansetron HCl (Ondansetron Inj 2 Mg/Ml Inj 2 Ml) 4 mg IVP X1 ONE; Protocol Stop: 08/11/24 20:18 Given Consultations Consultation(s) initiated? (list below): No Diagnosis Urogenital Female Differential Diagnosis: urinary tract infection and other (Nephrolithiasis) Most likely diagnosis given after review of the tests above:: Nephrolithiasis urinary tract infection Admission Indicated Admission indicated?: not indicated Explain why admission is indicated or not indicated:: Not indicated Admission Request Was there a request for admission?: No Admission Attestation Admission request attestation: Not indicated Disposition Plan Disposition Plan: Discharge Discharge Attestation Discharge Attestation: The patient and all family members were given an opportunity to ask questions and understood the discharge instructions. Discharge instructions specifically effects, indications for sooner follow up or return to the emergency department, and the expected course of current diagnosis. Patient condition: Stable Discharge Plan Plan Patient Disposition: HOME (Self Care) Patient condition on transfer: Stable Prescriptions/Referrals Prescriptions/Med Rec: New acetaminophen [Tylenol] 325 mg tablet 650 mg PO QID PRN (Reason: pain) Qty: 20 0RF ondansetron 4 mg tablet,disintegrating 4 mg PO Q8H PRN (Reason: nausea and vomiting) Qty: 20 0RF nitrofurantoin monohyd/m-cryst [Macrobid] 100 mg capsule 100 mg PO Q12H 7 Days Qty: 14 0RF Rx Instructions: must administer with a meal/food No Action ondansetron 4 mg tablet,disintegrating 4 mg PO Q8H PRN (Reason: Nausea And Vomiting) mirtazapine 30 mg tablet 60 mg PO HS rosuvastatin 10 mg tablet 10 mg PO HS Patient Comments: TAKE 1 TABLET BY MOUTH ONCE DAILY spironolactone 25 mg tablet 25 mg PO DAILY Patient Comments: TAKE 1 TABLET BY MOUTH ONCE DAILY levofloxacin 750 mg tablet 750 mg PO QDAY Qty: 5 0RF tamsulosin 0.4 mg capsule 0.4 mg PO QDAY Qty: 7 0RF Eliquis 5 mg Tablet 5 mg PO BID losartan [Cozaar] 100 mg Tablet 100 mg PO DAILY metoprolol tartrate 25 mg Tablet 25 mg PO HS hydroxyzine HCl 10 mg Tablet 10 mg PO BID omeprazole 20 mg capsule,delayed release(DR/EC) 20 mg PO QDAY Qty: 30 0RF acetaminophen [Aphen] 325 mg tablet 650 mg PO QID PRN (Reason: pain) Qty: 60 0RF polyethylene glycol 3350 [Miralax] 17 gram powder in packet 17 g PO BID Qty: 30 1RF Rx Instructions: X 2 weeks and then once a day for 1 week. diltiazem HCl [DILT-XR] 120 mg capsule,ext.rel 24h degradable PO sertraline 100 mg tablet 100 mg PO QHSPRN Patient Comments: TAKE ONE TABLET BY MOUTH AT BEDTIME amitriptyline 100 mg tablet 100 mg PO .qhs Patient Comments: TAKE ONE TABLET BY MOUTH AT BEDTIME NEEDED conjugated estrogens 0.625 mg/gram cream 0.1 mg topical QDAY Qty: 30 0RF Referrals: No Primary/Family,Physician [Primary Care Provider] - In 1 week Problem List Clinical Impression: Flank pain, Urinary tract infection, Nephrolithiasis, DDD (degenerative disc disease), lumbar Patient/Caregiver Discharge Instructions Education Materials: Urinary Tract Infections in Women, Kidney Stones: Your Evaluation, Understanding the Pain Response, ED Degenerative Disk Disease Additional Instructions: Follow-up with your primary care physician in 2 days for reevaluation and to be referred to urologist for further evaluation and treatment of your nephrolithiasis and recurrent kidney stone your he also need to be referred to neurosurgeon for further evaluation of DDD lumbar for possible MRI to rule out herniated disc and for any worsening symptoms or any emergent concerns such as fever chills abdominal pain unable to urinate blood in the urine numbness weakness tingling sensation incontinence to urine or stool call 911 or go to the nearest emergency room take your medication and finish the course of antibiotic increase water intake keep hydrated call medical records for your urine culture result Print Language: [place] Stand Alone Forms: [employer] Award Info., Patient Portal Info Letter PA/MARIS Supervising Physician DIANA/MARIS Supervising Physician: dr san
[2024-08-11 20:51] VITALS: BP 162/85; PULSE 91; RESP 16; O2SAT 97
[2024-08-11] MEDS: SODIUM CHLORIDE 0.9% 1000 ML 1,000 ML 999 ML IV (20:55)
[2024-08-11] MEDS: LEVOFLOXACIN/D5W 500 MG IVPB 500 MG/100 ML BAG 100 MG IV (20:55)
[2024-08-11] MEDS: ONDANSETRON INJ 2 MG/ML INJ 2 ML 4 MG IVP (20:56)
[2024-08-11] MEDS: MORPHINE SULF INJ 10 MG/ML VIAL 4 MG IVP ×2 (20:56→23:06)
[2024-08-11 23:28] VITALS: BP 174/98; PULSE 99; RESP 16; TEMP 36.8; O2SAT 98
== END 2024-08-11 23:29 | disposition home or self-care (01) ==
PROVIDERS: Nurse Practitioner Family; Emergency Provider Emergency Medicine
DX: N39.0 Urinary tract infection, site not specified (principal); N20.0 Calculus of kidney; M51.360 Other intervertebral disc degeneration, lumbar region with discogenic back pain only
CPT/HCPCS: 36415; 74176; 80053; 81001; 83690; 85025; 87086; 96365; 96366; 96375; 99284; J1956; J2270; J2405; J7030

== ENCOUNTER 2024-08-19 14:55 | Emergency (ER) | payer MEDICAID, SELFPAY ==
[2024-08-19 14:58] VITALS: BMI 23.7
[2024-08-19 15:19] VITALS: BP 134/74; PULSE 99; RESP 18; TEMP 36.9; O2SAT 100
--- NOTE | 2024-08-19 15:33 | PD.EDADULT ---
ED General RME/HPI General Chief complaint: Back Pain/Injury Stated complaint: SHANNEN. FLANK PAIN, LOWER LEFT ABD PAIN Time Seen by Provider: 08/19/24 15:20 Arrival date/time: 08/19/24 14:55 RME / HPI RME / HPI narrative: 63-year-old female with a past medical history of pyelonephritis and diverticulosis with diverticulitis, presents to the ED with a 2-day complaint of bilateral flank pain as well as left lower quadrant pain with dysuria and frequency. She denies any fever or chills, or upper respiratory complaints,. She has had nausea and vomiting. She states her bowels are moving normally. She states the pain is constant. Related Data Home Medications ?Medication ?Instructions ?Recorded ?Confirmed apixaban 5 mg tablet (Eliquis) 5 mg PO BID 06/09/23 05/27/24 hydroxyzine HCl 10 mg tablet 10 mg PO BID 06/09/23 08/20/23 losartan 100 mg tablet (Cozaar) 100 mg PO DAILY 06/09/23 05/27/24 metoprolol tartrate 25 mg tablet 25 mg PO HS 06/09/23 08/20/23 mirtazapine 30 mg tablet 60 mg PO HS 08/20/23 08/20/23 ondansetron 4 mg disintegrating 4 mg PO Q8H PRN Nausea And Vomiting 08/20/23 08/20/23 tablet rosuvastatin 10 mg tablet 10 mg PO HS 08/20/23 08/20/23 spironolactone 25 mg tablet 25 mg PO DAILY 08/20/23 08/20/23 amitriptyline 100 mg tablet 100 mg PO .qhs 05/27/24 05/27/24 diltiazem HCl 120 mg mg PO 05/27/24 capsule,extended release 24 hr, controlled (DILT-XR) sertraline 100 mg tablet 100 mg PO QHSPRN 05/27/24 05/27/24 Held on 05/29/24. Instructions: Resume on 06/16/24. till antibiotic course is done and sees a PCP Previous Rx's ?Medication ?Instructions ?Recorded omeprazole 20 mg capsule,delayed 20 mg PO QDAY #30 caps 08/14/23 release levofloxacin 750 mg tablet 750 mg PO QDAY pyelonephritis #5 07/14/24 tabs tamsulosin 0.4 mg capsule 0.4 mg PO QDAY dysuria, hesitancy 08/21/23 #7 caps acetaminophen 325 mg tablet (Aphen) 650 mg (2 x 325 mg) PO QID PRN 08/25/23 pain #60 tabs polyethylene glycol 3350 17 gram 17 g PO BID #30 ea 09/15/23 oral powder packet (Miralax) conjugated estrogens 0.625 mg/gram 0.1 mg topical QDAY #30 grams 05/29/24 vaginal cream acetaminophen 325 mg tablet 650 mg (2 x 325 mg) PO QID PRN 08/11/24 (Tylenol) pain #20 tabs ondansetron 4 mg disintegrating 4 mg PO Q8H PRN nausea and 08/11/24 tablet vomiting #20 tabs Allergies Allergy/AdvReac Type Severity Reaction Status Date / Time amoxicillin Allergy Severe ITCHY Verified 08/19/24 14:57 ceftriaxone (From Rocephin) Allergy Severe Swelling Verified 08/19/24 14:57 of Lip/Tongue/Throat cephalexin Allergy Severe Anaphylaxis Verified 08/19/24 14:57 dicyclomine (From Bentyl) Allergy Severe Rash Verified 08/19/24 14:57 hydrocodone Allergy Severe GI UPSET Verified 08/19/24 14:57 ibuprofen Allergy Severe Abdominal Verified 08/19/24 14:57 Pain ketorolac (From Toradol) Allergy Severe Hives Verified 08/19/24 14:57 meropenem Allergy Severe Anaphylaxis Verified 08/19/24 14:57 moxifloxacin Allergy Severe Hives Verified 08/19/24 14:57 Penicillins Allergy Severe HIVES,SWELL Verified 08/19/24 14:57 ING Sulfa (Sulfonamide Allergy Severe HIVES,SWELL Verified 08/19/24 14:57 Antibiotics) ING tramadol Allergy Severe Shakiness Verified 08/19/24 14:57 Review of Systems Review of Systems Systems Reviewed: All systems reviewed, normal except as documented Past Medical History Past Medical History NEUROLOGIC: Positive Transient Ischemic Attacks (TIA); Negative Dementia, Alzheimer's Disease, Seizures, Amyotrophic Lateral Sclerosis (ALS/Lina Gehrig's) or Head Trauma CARDIAC: Positive Atrial Fibrillation, Hypercholesterolemia and Hypertension; Negative Cardiac Disorders, Myocardial Infarction, Cardiac Arrhythmia, Angina, Heart Murmur, Coronary Artery Disease, Atherosclerotic Heart Disease, Peripheral Vascular Disease, Aneurysm, Congestive Heart Failure, Congenital Heart Disease, Valvular Heart Disease, Rheumatic Fever, Edema, Pericarditis, Cellulitis, Deep Vein Thrombosis, Hypotension or Varicose Veins RESPIRATORY: Positive Chronic Obstructive Pulmonary Disease (COPD); Negative Asthma GASTROINTESTINAL: Positive Gastrointestinal Disorders, Diverticulitis, Diverticulosis and Gastroesophageal Reflux Disease; Negative Hepatitis, Cirrhosis, Pancreatitis, Celiac Disease, Gall Bladder Disease, Gastrointestinal Bleed, Esophageal Varices, Loera's Esophagus, Colitis, Ulcerative Colitis, Ulcer, Colorectal Cancer, Irritable Bowel, Crohn's Disease, Obstructive Bowel, Hiatal Hernia, Hemorrhoids or Obesity GENITOURINARY: Negative Genitourinary Disorders, Renal Disease or Kidney Stones REPRODUCTIVE: Positive Breast Cancer; Negative Pelvic Inflammatory Disease MUSCULOSKELETAL: Positive Arthritis, Rheumatoid Arthritis, Osteoporosis and Degenerative Disk Disease; Negative Gout, Scoliosis, Fractures, Degenerative Joint Disease, Osteomyelitis or Poliovirus ENT: Negative Cataracts, Glaucoma, Blind, Retinal Detachment, Macular Degeneration, Ear Infection, Deafness, Head Trauma or Eye Prosthesis ENDOCRINE: Negative Endocrine Disorders, Diabetes Mellitus Type 1, Diabetes Mellitus Type 2, Hypoglycemia, Brinnon's Disease, Hyperthyroidism, Hypothyroidism, Parathyroid Disease, Pituitary Disease, Systemic Lupus Erythematosus, Syndrome of Inappropriate Antidiuretic Hormone (SIADH), Adrenal Disease or Graves' Disease HEMATOLOGIC: Negative Anemia or Sickle Cell Disease PSYCHO/SOCIAL: Positive Anxiety and Post Traumatic Stress Disorder; Negative Psychiatric Problems or Bipolar Disorder OTHER HISTORY: Positive Hospitalization, Chemotherapy, Chicken Pox, Measles, Rubella (Mong[place]ian Measles), Cancer and Breast Cancer; Negative Autoimmune Disease, Shingles, Falls, Blood Transfusions, Anesthesia Reactions, Organ Transplant, Radiation Therapy, MRSA, VRSA, Vancomycin-Resistant Enterococci, Human Immunodeficiency Virus (HIV), Mumps, Pertussis, Clostridium Difficile, Cervical Cancer, Colorectal Cancer, Lung Cancer or Ovarian Cancer Family History FAMILY HISTORY: Positive Family Psychiatric Problems and Family Cardiac Disorders; Negative Family Respiratory Disorders, Family Gastrointestinal Problems, Family Cancer, Family Surgery or Family Anesthesia Reaction Surgical History SURGICAL: Positive Mastectomy and Hysterectomy; Negative Cardiac Surgery, Pacemaker, Endocrine Surgery, Ear Surgery, Abdominal Surgery, Nephrectomy, Joint Replacement, Neurologic Surgery, Brain Shunt, Section or Organ Transplant Social History SMOKING STATUS: Current every day smoker SECOND HAND EXPOSURE: No SUBSTANCE USE: does not use ED Exam Narrative Physical exam: Alert and oriented, very pleasant 63-year-old female, mild acute pain distress. Lungs are clear, regular rate and rhythm. Abdomen is soft with bilateral lower abdominal tenderness and bilateral flank tenderness. CVA tenderness is present bilaterally. Moves all extremities well. Course Course Course Narrative: Initial vital signs blood pressure 134/74, pulse 99, respirations 18 and nonlabored, temp 98.4, O2 sat 100% on room air. CBC reveals a normal white count, normal hemoglobin, minimally low hematocrit of 35.4 with normal platelets. CMP reveals normal electrolytes with exception of a minimally elevated glucose of 108, normal BUN and creatinine and LFTs. Magnesium is minimally low at 1.5. Amylase and lipase are normal. Urinalysis reveals clear light yellow urine with a specific gravity of 1.008 with negative protein, glucose, ketones, nitrites, leukocyte esterase. 0 RBCs, 0 WBCs, 6 squamous epithelial cells and 1+ bacteria. CT of the abdomen and pelvis with contrast reveals: Severe scarring left kidney with 3 mm nonobstructing left renal calculus. No hydronephrosis or ureteral calculi. Diverticulosis without Diverticulitis.Normal appendix. No bladder mass or bladder calculi. Symptoms, Exam, and Diagnostic Studies are consistent with Chronic Flank/Back pain without evidence of Pyelonephritis, Renal Calculi or Diverticulitis. She was initially given Morphine 5mg IM and Zofran 4mg IV. She was again given Morphine 4mg IV and Zofran 4mg IV. She was discharged home in stable and improved condition. She was advised to follow-up with her primary care physician in 24 to 48 hours. She was encouraged to return to the ED for any new or worsening symptoms. Quality Measures none Orders Category Date Time Status CT Screening NOW Care 08/19/24 18:[address] Screening X1 Care 08/19/24 18:01 Active IV [Insert IV] NOW Care 08/19/24 15:37 Active NPO STAT Care 08/19/24 15:[address] abdomen pelvis w con Stat Exams 08/19/24 18:01 Completed Amylase Stat Lab 08/19/24 15:53 Completed CBC Stat Lab 08/19/24 15:53 Completed Comprehensive Metabolic Panel Stat Lab 08/19/24 15:53 Completed Lipase Stat Lab 08/19/24 15:53 Completed Magnesium Stat Lab 08/19/24 15:53 Completed Phosphorous Stat Lab 08/19/24 15:53 Completed Urinalysis, C/S if Indicated Stat Lab 08/19/24 16:21 Completed Urine Culture Stat Lab 08/19/24 16:21 Received Morphine Inj Med 08/19/24 21:06 Once 4 mg IVP X1 ONE Morphine Inj Med 08/19/24 15:42 Discontinued 5 mg IM X1 ONE Ondansetron Inj [Zofran Inj] Med 08/19/24 15:37 Discontinued 4 mg IVP X1 ONE Ondansetron Inj [Zofran Inj] Med 08/19/24 21:06 Once 4 mg IVP X1 ONE Sodium Chloride 0.9% 1000 ml [Ns] 1,000 ml Med 08/19/24 15:37 Discontinued IV 999 mls/hr Vital Signs Vital signs: Vital Signs Temperature 98.4 F 08/19/24 15:19 Pulse Rate 99 08/19/24 15:19 Respiratory Rate 18 08/19/24 15:19 Blood Pressure 134/74 H 08/19/24 15:19 Pulse Oximetry (%) 100 08/19/24 15:19 Oxygen Delivery Method Room Air 08/19/24 15:19 Discharge Plan Plan Patient Disposition: HOME (Self Care) Discharge Disposition comment: Stable and improved Prescriptions/Referrals Prescriptions/Med Rec: No Action ondansetron 4 mg tablet,disintegrating 4 mg PO Q8H PRN (Reason: Nausea And Vomiting) mirtazapine 30 mg tablet 60 mg PO HS rosuvastatin 10 mg tablet 10 mg PO HS Patient Comments: TAKE 1 TABLET BY MOUTH ONCE DAILY spironolactone 25 mg tablet 25 mg PO DAILY Patient Comments: TAKE 1 TABLET BY MOUTH ONCE DAILY levofloxacin 750 mg tablet 750 mg PO QDAY Qty: 5 0RF tamsulosin 0.4 mg capsule 0.4 mg PO QDAY Qty: 7 0RF Eliquis 5 mg Tablet 5 mg PO BID losartan [Cozaar] 100 mg Tablet 100 mg PO DAILY metoprolol tartrate 25 mg Tablet 25 mg PO HS hydroxyzine HCl 10 mg Tablet 10 mg PO BID omeprazole 20 mg capsule,delayed release(DR/EC) 20 mg PO QDAY Qty: 30 0RF acetaminophen [Aphen] 325 mg tablet 650 mg PO QID PRN (Reason: pain) Qty: 60 0RF polyethylene glycol 3350 [Miralax] 17 gram powder in packet 17 g PO BID Qty: 30 1RF Rx Instructions: X 2 weeks and then once a day for 1 week. diltiazem HCl [DILT-XR] 120 mg capsule,ext.rel 24h degradable PO sertraline 100 mg tablet 100 mg PO QHSPRN Patient Comments: TAKE ONE TABLET BY MOUTH AT BEDTIME amitriptyline 100 mg tablet 100 mg PO .qhs Patient Comments: TAKE ONE TABLET BY MOUTH AT BEDTIME NEEDED conjugated estrogens 0.625 mg/gram cream 0.1 mg topical QDAY Qty: 30 0RF acetaminophen [Tylenol] 325 mg tablet 650 mg PO QID PRN (Reason: pain) Qty: 20 0RF ondansetron 4 mg tablet,disintegrating 4 mg PO Q8H PRN (Reason: nausea and vomiting) Qty: 20 0RF Referrals: No Primary/Family,Physician [Primary Care Provider] - In 1 week Problem List Clinical Impression: Chronic flank pain Patient/Caregiver Discharge Instructions Education Materials: ED Flank Pain, Uncertain Cause Additional Instructions: Follow-up with your primary care physician in 24 to 48 hours. Return to the ED for any new or worsening symptoms. Print Language: Citizen [place] Stand Alone Forms: Janki Award Info., Patient Portal Info Letter PA/MARIS Supervising Physician PA/MARIS Supervising Physician: Dr. Villasenor [facility] Clinical Information Provided by patient Medical Records Reviewed [facility] 3 previous CTs of the abdomen and pelvis in the year 2024. Meds/Rx Considered, not Ordered None Labs/Rad/Tests considered, not Ordered None Chronic Illness/Social Conditions which may negatively complicate care or outcome(s)-explain: other (Pyelonephritis, renal calculi, diverticulitis) EKG EKG not done Lab Interpretation Labs: interpreted by me Lab(s) interpretation(s): As noted above Imaging Imaging interpretation: see narrative above Provider imaging interpretation(s): As noted above Medication Administration(s) Medication Administration History Morphine Sulfate (Morphine Sulf Inj 10 Mg/Ml Vial) 4 mg IVP X1 ONE Stop: 08/19/24 21:07 Ondansetron HCl (Ondansetron Inj 2 Mg/Ml Inj 2 Ml) 4 mg IVP X1 ONE; Protocol Stop: 08/19/24 21:07 Discontinued Medications Sodium Chloride (Ns) 1,000 mls @ 999 mls/hr IV .Q1H1M ONE Stop: 08/19/24 16:37 Last Infusion: 08/19/24 18:38 Dose: Infused Documented By: Admin: 08/19/24 17:46 Dose: 999 mls/hr Documented By: RD Morphine Sulfate (Morphine Sulf Inj 10 Mg/Ml Vial) 5 mg IM X1 ONE Stop: 08/19/24 15:43 Last Admin: 08/19/24 16:50 Dose: 5 mg Documented By: RD Ondansetron HCl (Ondansetron Inj 2 Mg/Ml Inj 2 Ml) 4 mg IVP X1 ONE; Protocol Stop: 08/19/24 15:38 Last Admin: 08/19/24 17:46 Dose: 4 mg Documented By: RD As noted above Diagnosis Differential diagnosis: Pyelonephritis, renal calculi, diverticulitis Differential dx and/or dx ruled out: All of the above Most likely dx, and/or detailed dx discussion: Chronic flank/low back pain with no identifiable cause. Dispositon Disposition: Discharge Home Disposition comments: Patient is stable for discharge
[2024-08-19 16:01] LABS: Basophils # (Auto) 0.1 Thou/mm3 (0.0-0.2); Basophils % (Auto) 1 % (0-2.5); Eosinophils # (Auto) 0.3 Thou/mm3 (0.0-0.5); Eosinophils % (Auto) 3 % (0-10); Hematocrit 35.4 % (36.0-46.0); Hemoglobin 12.2 g/dL (12.0-16.0); Immature Granulocytes Auto 0.05 Thou/mm3 (0.00-0.00); Lymphocytes # (Auto) 3.0 Thou/mm3 (1.0-4.8); Lymphocytes % (Auto) 32 % (10-50); Mean Corpuscular HGB Conc 34.5 g/dl (31.0-37.0); Mean Corpuscular Hemoglobin 32.3 pg (25.0-35.0); Mean Corpuscular Volume 94 fL (80-100); Monocytes # (Auto) 0.6 Thou/mm3 (0.0-0.8); Monocytes % (Auto) 6 % (0-12); Neutrophils # (Auto) 5.5 Thou/mm3 (1.8-7.7); Neutrophils % (Auto) 58 % (37-80); Nucleated Red Blood Cell # 0.00 Thou/mm3 (0.00-0.00); Nucleated Red Blood Cell % 0 /100 WBC (0); Platelet Count 390 Thou/mm3 (140-440); RDW Standard Deviation 51.3 fL (36.4-46.3); Red Blood Count 3.78 Miln/mm3 (4.00-5.20); White Blood Count 9.5 Thou/mm3 (3.6-11.0)
[2024-08-19 16:28] LABS: Collection Type, Urine Clean Catch; RBC,Urine 0 /hpf (0-3); WBC,Urine 0 /hpf (0-5)
[2024-08-19 16:29] LABS: Alanine Aminotransferase 9 U/L (10-49); Albumin, Serum 4.2 gm/dL (3.4-4.8); Albumin/Globulin Ratio 1.7 (1.2-2.2); Alkaline Phosphatase 99 U/L (46-116); Amylase 44 U/L (30-118); Anion Gap 7 (7-16); Aspartate Amino Transferase 16 U/L (0-34); BUN/Creatinine Ratio 11 Ratio (12-20); Bilirubin,Total 0.3 mg/dL (0.3-1.2); Blood Urea Nitrogen 11 mg/dL (9-23); Calcium 9.6 mg/dL (8.3-10.6); Calcium (Corrected) 9.6 mg/dL (8.5-10.1); Carbon Dioxide 25.8 mMol/L (20.0-31.0); Chloride 107 mMol/L (98-107); Creatinine (Component) 1.0 mg/dL (0.6-1.3); Estimated Creatinine Clearance 65.2 mL/min (>60); Globulin 2.5 gm/dL (2.3-3.5); Glucose 108 mg/dL (74-106); Lipase 27 U/L (12-53); Magnesium 1.5 mg/dL (1.6-2.6); Osmolality,Calculated 279 (275-295); Phosphorous 3.8 mg/dL (2.4-5.1); Potassium 4.1 mMol/L (3.4-5.1); Sodium 140 mMol/L (136-145); Total Protein 6.7 gm/dL (5.7-8.2); eGFR > 60 See Note
[2024-08-19] MEDS: MORPHINE SULF INJ 10 MG/ML VIAL 5 MG IM (16:50)
[2024-08-19 16:51] LABS: Bacteria,Urine 1+; Bilirubin,Urine Negative (Negative); Blood,Urine Negative (Negative); Clarity,Urine Clear (Clear/Hazy); Color,Urine Lt-Yellow (Lt Yel-Yel); Glucose, Urine Negative (Negative); Ketones,Urine Negative (Negative); Leukocyte Esterase,Urine Negative (Negative); Nitrite,Urine Negative (Negative); PH,Urine 6.0 (5.0-7.0); Protein,Urine Negative (Neg - Trace); Specific Gravity,Urine 1.008 (1.001-1.035); Squamous Epithelial Cell,Urine 6 /hpf (0-5); Urobilinogen,Urine Negative mg/dL (0.0-1.0)
[2024-08-19 16:59] LABS: Culture Indicated,Urine Yes
[2024-08-19 17:33] VITALS: BP 132/80; PULSE 97; RESP 16; TEMP 37.2; O2SAT 97
[2024-08-19] MEDS: ONDANSETRON INJ 2 MG/ML INJ 2 ML 4 MG IVP ×2 (17:46→21:30)
[2024-08-19] MEDS: SODIUM CHLORIDE 0.9% 1000 ML 1,000 ML 999 ML IV (17:46)
--- NOTE | 2024-08-19 18:01 | XR_ITS ---
Examination: CT abdomen with intravenous contrast CT pelvis with intravenous contrast 2-D coronal reconstructions 2-D sagittal reconstructions Date and time of exam:August 19, 2024 at 1832 hours INDICATIONS: Bilateral flank pain today. CTDI: vol (mGy) 7.79 DLP: (mGycm) 435 Technique: Multiple axial sections of the abdomen and pelvis have been obtained. 64 slice high-resolution scanner used. 3 mm axial sections have been obtained, post intravenous injection . 2-D sagittal, coronal reconstructions obtained. Low dose protocols were performed. One or more of the following dose reduction techniques were used; automated exposure control, adjustment of the mA and/or KV according to patient size, use of iterative reconstruction technique. Findings: No focal liver or splenic lesions No gallstones No pancreatic mass Severe scarring left kidney with 3 mm left renal calculus No hydronephrosis or ureteral calculi Aorta normal size Normal appendix Colonic diverticulosis, no diverticulitis No bladder mass or bladder calculi Absent uterus Fat-containing inguinal hernias Prominent osteopenia IMPRESSION: Severe scarring left kidney with 3 mm nonobstructing left renal calculus No hydronephrosis or ureteral calculi Normal appendix No bladder mass or bladder calculi
[2024-08-19] MEDS: MORPHINE SULF INJ 10 MG/ML VIAL 4 MG IVP (21:30)
[2024-08-19 22:19] VITALS: RESP 18
== END 2024-08-19 22:19 | disposition home or self-care (01) ==
PROVIDERS: Physician Assistant; Emergency Provider Emergency Medicine
DX: N20.0 Calculus of kidney (principal); N28.89 Other specified disorders of kidney and ureter
CPT/HCPCS: 36415; 74177; 80053; 81001; 82150; 83690; 83735; 84100; 85025; 87086; 96361; 96374; 96375; 96376; 99284; A4649; J2270; J2405; J7030; Q9967

== ENCOUNTER 2024-09-16 15:58 | Emergency (ER) | payer MEDICAID, SELFPAY ==
[2024-09-16 15:59] VITALS: BMI 24.4
[2024-09-16 16:08] VITALS: BP 115/69; PULSE 95; RESP 22; TEMP 37.1; O2SAT 98
--- NOTE | 2024-09-16 16:22 | XR_ITS ---
Examination: CT abdomen and pelvis without contrast. Coronal 3-D reconstructions. Sagittal 2-D reconstructions. Date and time of exam:September 16, 2024, 1641 hours INDICATIONS: Left-sided abdominal pain beginning 2 hours ago, history kidney stones on CT study August 19, 2024 CTDI: vol (mGy): 8.16 DLP: (mGycm): 451 Technique: Axial images of the abdomen have been obtained, 3 mm slice thickness Intravenous contrast material has not been administered. Low dose protocols were performed. One or more of the following dose reduction techniques were used; automated exposure control, adjustment of the mA and/or KV according to patient size, use of iterative reconstruction technique. Findings: No focal liver or splenic lesions Possible gallbladder sludge No pancreatic or adrenal mass Severe scarring left kidney with 2 mm 5 mm left renal calculi, no hydronephrosis or ureteral calculi 10 mm fat-containing umbilical hernia Normal appendix Colonic diverticulosis, no definite diverticulitis Urinary bladder intact Prominent fat-containing inguinal hernias Prominent osteopenia Advanced disc narrowing L2-L3 and advanced disc narrowing hip joints IMPRESSION: Recommend hepatobiliary sonography to exclude gallbladder sludge Severe scarring left kidney with left renal calculi No hydronephrosis or ureteral calculi Normal appendix Colonic diverticulosis, no diverticulitis
--- NOTE | 2024-09-16 16:22 | PD.EDRME ---
Rapid Medical Screening Exam RME Arrival date/time: 09/16/24 15:58 63-year-old female presents to the emergency department today complains of lower abdominal pain and left sided pain abdominal Chief Complaint: Abdominal Pain Vital signs: Vital Signs Temperature 98.7 F 09/16/24 16:08 Pulse Rate 95 09/16/24 16:08 Respiratory Rate 22 H 09/16/24 16:08 Blood Pressure 115/69 09/16/24 16:08 Pulse Oximetry (%) 98 09/16/24 16:08 Oxygen Delivery Method Room Air 09/16/24 16:08
[2024-09-16 16:52] VITALS: BP 144/85; PULSE 86; RESP 18; TEMP 36.6; O2SAT 99
[2024-09-16 17:14] LABS: Basophils # (Auto) 0.0 Thou/mm3 (0.0-0.2); Basophils % (Auto) 0 % (0-2.5); Eosinophils # (Auto) 0.2 Thou/mm3 (0.0-0.5); Eosinophils % (Auto) 2 % (0-10); Hematocrit 35.2 % (36.0-46.0); Hemoglobin 12.0 g/dL (12.0-16.0); Immature Granulocytes Auto 0.03 Thou/mm3 (0.00-0.00); Lymphocytes # (Auto) 2.3 Thou/mm3 (1.0-4.8); Lymphocytes % (Auto) 24 % (10-50); Mean Corpuscular HGB Conc 34.1 g/dl (31.0-37.0); Mean Corpuscular Hemoglobin 31.7 pg (25.0-35.0); Mean Corpuscular Volume 93 fL (80-100); Monocytes # (Auto) 0.6 Thou/mm3 (0.0-0.8); Monocytes % (Auto) 6 % (0-12); Neutrophils # (Auto) 6.4 Thou/mm3 (1.8-7.7); Neutrophils % (Auto) 67 % (37-80); Nucleated Red Blood Cell # 0.00 Thou/mm3 (0.00-0.00); Nucleated Red Blood Cell % 0 /100 WBC (0); Platelet Count 357 Thou/mm3 (140-440); RDW Standard Deviation 47.1 fL (36.4-46.3); Red Blood Count 3.78 Miln/mm3 (4.00-5.20); White Blood Count 9.5 Thou/mm3 (3.6-11.0)
[2024-09-16 17:46] LABS: Alanine Aminotransferase 8 U/L (10-49); Albumin, Serum 4.5 gm/dL (3.4-4.8); Albumin/Globulin Ratio 1.8 (1.2-2.2); Alkaline Phosphatase 98 U/L (46-116); Anion Gap 9 (7-16); Aspartate Amino Transferase 23 U/L (0-34); BUN/Creatinine Ratio 13 Ratio (12-20); Bilirubin,Total 0.5 mg/dL (0.3-1.2); Blood Urea Nitrogen 12 mg/dL (9-23); Calcium 9.6 mg/dL (8.3-10.6); Calcium (Corrected) 9.6 mg/dL (8.5-10.1); Carbon Dioxide 25.0 mMol/L (20.0-31.0); Chloride 103 mMol/L (98-107); Creatinine (Component) 0.9 mg/dL (0.6-1.3); Estimated Creatinine Clearance 72.4 mL/min (>60); Globulin 2.5 gm/dL (2.3-3.5); Glucose 94 mg/dL (74-106); Lipase 31 U/L (12-53); Osmolality,Calculated 273 (275-295); Potassium 4.0 mMol/L (3.4-5.1); Sodium 137 mMol/L (136-145); Total Protein 7.0 gm/dL (5.7-8.2); eGFR > 60 See Note
[2024-09-16 18:48] VITALS: BP 133/95; PULSE 80; RESP 16; TEMP 37.6; O2SAT 96
[2024-09-16 19:17] LABS: Collection Type, Urine Clean Catch
[2024-09-16] MEDS: METOCLOPRAMIDE INJ 5 MG/ML VIAL 2 ML 10 MG IVP (19:35)
[2024-09-16] MEDS: MORPHINE SULF INJ 10 MG/ML VIAL 5 MG IVP ×2 (19:35→21:57)
[2024-09-16 19:48] LABS: Bacteria,Urine 1+; Bilirubin,Urine Negative (Negative); Blood,Urine Negative (Negative); Clarity,Urine Turbid (Clear/Hazy); Color,Urine Colorless (Lt Yel-Yel); Culture Indicated,Urine Contaminated; Glucose, Urine Negative (Negative); Ketones,Urine Negative (Negative); Leukocyte Esterase,Urine Positive (Negative); Nitrite,Urine Negative (Negative); PH,Urine 6.0 (5.0-7.0); Protein,Urine Negative (Neg - Trace); RBC,Urine 1 /hpf (0-3); Specific Gravity,Urine 1.005 (1.001-1.035); Squamous Epithelial Cell,Urine 11 /hpf (0-5); Urobilinogen,Urine Negative mg/dL (0.0-1.0); WBC,Urine 14 /hpf (0-5)
--- NOTE | 2024-09-16 20:13 | PD.EDABDPN ---
ED Abdominal Pain RME/HPI General Chief Complaint: Abdominal Pain Stated complaint: LEFT LOWER ABD PAIN,BILAT FLANK PAIN,PAIN BREATHIN Time seen by provider: 09/16/24 17:10 Arrival date/time: 09/16/24 15:58 This is a 63-year-old female with a past medical history of pyelonephritis/uti/kidney stone and diverticulosis without diverticulitis. Patient has been seen here 4 times in the last 2 months for this similar complaints. Patient was seen here 2 weeks ago for the same symptoms. Patient was placed on Macrobid and Flagyl. Patient has multiple drug allergies which makes it difficult to give her antibiotics. Patient also has allergies to many pain medications. Patient complains of left flank pain. She denies any fever or chills, or upper respiratory complaints. Patient denies nausea vomiting. Patient denies any other complaints. Patient also has a history of breast cancer status post chemo, COPD, Afib, HLD, primary HTN, GERD, degenerative disc disease, active smoker, Hx of TIA. RME / HPI RME / HPI narrative: 09/16/24 15:58 63-year-old female presents to the emergency department today complains of lower abdominal pain and left sided pain abdominal Related Data Home Medications ?Medication ?Instructions ?Recorded ?Confirmed apixaban 5 mg tablet (Eliquis) 5 mg PO BID 06/09/23 05/27/24 hydroxyzine HCl 10 mg tablet 10 mg PO BID 06/09/23 08/20/23 losartan 100 mg tablet (Cozaar) 100 mg PO DAILY 06/09/23 05/27/24 metoprolol tartrate 25 mg tablet 25 mg PO HS 06/09/23 08/20/23 mirtazapine 30 mg tablet 60 mg PO HS 08/20/23 08/20/23 ondansetron 4 mg disintegrating 4 mg PO Q8H PRN Nausea And Vomiting 08/20/23 08/20/23 tablet rosuvastatin 10 mg tablet 10 mg PO HS 08/20/23 08/20/23 spironolactone 25 mg tablet 25 mg PO DAILY 08/20/23 08/20/23 amitriptyline 100 mg tablet 100 mg PO .qhs 05/27/24 05/27/24 diltiazem HCl 120 mg mg PO 05/27/24 capsule,extended release 24 hr, controlled (DILT-XR) sertraline 100 mg tablet 100 mg PO QHSPRN 05/27/24 05/27/24 Held on 05/29/24. Instructions: Resume on 06/16/24. till antibiotic course is done and sees a PCP Previous Rx's ?Medication ?Instructions ?Recorded omeprazole 20 mg capsule,delayed 20 mg PO QDAY #30 caps 08/14/23 release levofloxacin 750 mg tablet 750 mg PO QDAY pyelonephritis #5 08/21/23 tabs tamsulosin 0.4 mg capsule 0.4 mg PO QDAY dysuria, hesitancy 08/21/23 #7 caps acetaminophen 325 mg tablet (Aphen) 650 mg (2 x 325 mg) PO QID PRN 08/25/23 pain #60 tabs polyethylene glycol 3350 17 gram 17 g PO BID #30 ea 09/15/23 oral powder packet (Miralax) conjugated estrogens 0.625 mg/gram 0.1 mg topical QDAY #30 grams 05/29/24 vaginal cream acetaminophen 325 mg tablet 650 mg (2 x 325 mg) PO QID PRN 08/11/24 (Tylenol) pain #20 tabs ondansetron 4 mg disintegrating 4 mg PO Q8H PRN nausea and 08/11/24 tablet vomiting #20 tabs Allergies Allergy/AdvReac Type Severity Reaction Status Date / Time amoxicillin Allergy Severe ITCHY Verified 09/26/24 16:00 ceftriaxone (From Rocephin) Allergy Severe Swelling Verified 09/26/24 16:00 of Lip/Tongue/Throat cephalexin Allergy Severe Anaphylaxis Verified 09/26/24 16:00 dicyclomine (From Bentyl) Allergy Severe Rash Verified 09/26/24 16:00 hydrocodone Allergy Severe GI UPSET Verified 09/26/24 16:00 ibuprofen Allergy Severe Abdominal Verified 09/26/24 16:00 Pain ketorolac (From Toradol) Allergy Severe Hives Verified 09/26/24 16:00 meropenem Allergy Severe Anaphylaxis Verified 09/26/24 16:00 moxifloxacin Allergy Severe Hives Verified 09/26/24 16:00 Penicillins Allergy Severe HIVES,SWELL Verified 09/26/24 16:00 ING Sulfa (Sulfonamide Allergy Severe HIVES,SWELL Verified 09/26/24 16:00 Antibiotics) ING tramadol Allergy Severe Shakiness Verified 09/26/24 16:00 Review of Systems Review of Systems Systems Reviewed: All systems reviewed, normal except as documented Past Medical History Past Medical History NEUROLOGIC: Positive Transient Ischemic Attacks (TIA); Negative Dementia, Alzheimer's Disease, Seizures, Amyotrophic Lateral Sclerosis (ALS/Lina Gehrig's) or Head Trauma CARDIAC: Positive Atrial Fibrillation, Hypercholesterolemia and Hypertension; Negative Cardiac Disorders, Myocardial Infarction, Cardiac Arrhythmia, Angina, Heart Murmur, Coronary Artery Disease, Atherosclerotic Heart Disease, Peripheral Vascular Disease, Aneurysm, Congestive Heart Failure, Congenital Heart Disease, Valvular Heart Disease, Rheumatic Fever, Edema, Pericarditis, Cellulitis, Deep Vein Thrombosis, Hypotension or Varicose Veins RESPIRATORY: Positive Chronic Obstructive Pulmonary Disease (COPD); Negative Asthma GASTROINTESTINAL: Positive Gastrointestinal Disorders, Diverticulitis, Diverticulosis and Gastroesophageal Reflux Disease; Negative Hepatitis, Cirrhosis, Pancreatitis, Celiac Disease, Gall Bladder Disease, Gastrointestinal Bleed, Esophageal Varices, Loera's Esophagus, Colitis, Ulcerative Colitis, Ulcer, Colorectal Cancer, Irritable Bowel, Crohn's Disease, Obstructive Bowel, Hiatal Hernia, Hemorrhoids or Obesity GENITOURINARY: Negative Genitourinary Disorders, Renal Disease or Kidney Stones REPRODUCTIVE: Positive Breast Cancer; Negative Pelvic Inflammatory Disease MUSCULOSKELETAL: Positive Arthritis, Rheumatoid Arthritis, Osteoporosis and Degenerative Disk Disease; Negative Gout, Scoliosis, Fractures, Degenerative Joint Disease, Osteomyelitis or Poliovirus ENT: Negative Cataracts, Glaucoma, Blind, Retinal Detachment, Macular Degeneration, Ear Infection, Deafness, Head Trauma or Eye Prosthesis ENDOCRINE: Negative Endocrine Disorders, Diabetes Mellitus Type 1, Diabetes Mellitus Type 2, Hypoglycemia, Towner's Disease, Hyperthyroidism, Hypothyroidism, Parathyroid Disease, Pituitary Disease, Systemic Lupus Erythematosus, Syndrome of Inappropriate Antidiuretic Hormone (SIADH), Adrenal Disease or Graves' Disease HEMATOLOGIC: Negative Anemia or Sickle Cell Disease PSYCHO/SOCIAL: Positive Anxiety and Post Traumatic Stress Disorder; Negative Psychiatric Problems or Bipolar Disorder OTHER HISTORY: Positive Hospitalization, Chemotherapy, Chicken Pox, Measles, Rubella (Croatian Measles), Cancer and Breast Cancer; Negative Autoimmune Disease, Shingles, Falls, Blood Transfusions, Anesthesia Reactions, Organ Transplant, Radiation Therapy, MRSA, VRSA, Vancomycin-Resistant Enterococci, Human Immunodeficiency Virus (HIV), Mumps, Pertussis, Clostridium Difficile, Cervical Cancer, Colorectal Cancer, Lung Cancer or Ovarian Cancer Family History FAMILY HISTORY: Positive Family Psychiatric Problems and Family Cardiac Disorders; Negative Family Respiratory Disorders, Family Gastrointestinal Problems, Family Cancer, Family Surgery or Family Anesthesia Reaction Surgical History SURGICAL: Positive Mastectomy and Hysterectomy; Negative Cardiac Surgery, Pacemaker, Endocrine Surgery, Ear Surgery, Abdominal Surgery, Nephrectomy, Joint Replacement, Neurologic Surgery, Brain Shunt, Section or Organ Transplant Social History SMOKING STATUS: Current every day smoker SECOND HAND EXPOSURE: No SUBSTANCE USE: does not use ED Exam Narrative Physical exam: VITAL SIGNS: Reviewed. GENERAL APPEARANCE: Alert and interactive, follows commands, no acute distress, HEAD AND FACE: Non-traumatic. ENT: PERRL, conjuctiva pink and clear, eyelid no trauma, Mucous membrane moist. NECK: Supple, nontender, no nuchal rigidity. CHEST: No tenderness, no crepitus, no paradoxical movement, no retractions. LUNGS: Clear, well ventilated, symmetric, no rales, no wheezing, no rhonchi, no stridor, good breath sounds bilaterally. HEART: Regular rate, regular rhythm, no murmur, no gallops. ABDOMEN: Soft, nondistended, no guarding, nontender, CVA tenderness on the left side. NEUROLOGICAL: Gross motor function intact sensory function intact, Appropriate for age. MUSCULOSKELETAL: low back nontender, full range of motion. EXTREMITIES: No redness no swelling no skin breakdown on bilateral foot and leg. Distal neurovascular status intact bilateral foot SKIN: Color pink, dry, no rash Course Quality Measures none Orders Category Date Time Status CT abdomen pelvis wo con Stat Exams 09/16/24 16:22 Completed CBC Stat Lab 09/16/24 17:07 Completed Comprehensive Metabolic Panel Stat Lab 09/16/24 17:07 Completed Lipase Stat Lab 09/16/24 17:07 Completed UA, C/S IF [Urinalysis, C/S if Indicated] Stat Lab 09/16/24 18:50 Completed Urine Culture Stat Lab 09/16/24 18:50 Completed Levofloxacin [Levaquin] Med 09/16/24 20:35 Discontinued 500 mg PO X1 ONE Metoclopramide Inj [Reglan Inj] Med 09/16/24 19:09 Discontinued 10 mg IM X1 ONE Metoclopramide Inj [Reglan Inj] Med 09/16/24 19:30 Discontinued 10 mg IVP X1 ONE Morphine Inj Med 09/16/24 19:09 Discontinued 5 mg IM X1 ONE Morphine Inj Med 09/16/24 19:30 Discontinued 5 mg IVP X1 ONE Morphine Inj Med 09/16/24 20:25 Discontinued 5 mg IVP X1 ONE Vital Signs Vital signs: Vital Signs Temperature 98.7 F 09/16/24 16:08 Pulse Rate 95 09/16/24 16:08 Respiratory Rate 22 H 09/16/24 16:08 Blood Pressure 115/69 09/16/24 16:08 Pulse Oximetry (%) 98 09/16/24 16:08 Oxygen Delivery Method Room Air 09/16/24 16:08 Abdominal Pain MDM MDM Narrative MDM Narrative:: I spoke to patient at length. explained the importance of following up with primary provider for pain control and also to follow-up on urine culture. Labs reviewed. White count is 9.5 hemoglobin and hematocrit are 12 and 35.2 BMP unremarkable lipase 31 LFTs within normal limits. Urine shows leukocyte Estrace white blood cells of [address] abdomen and pelvis shows: Findings: No focal liver or splenic lesions Possible gallbladder sludge No pancreatic or adrenal mass Severe scarring left kidney with 2 mm 5 mm left renal calculi, no hydronephrosis or ureteral calculi 10 mm fat-containing umbilical hernia Normal appendix Colonic diverticulosis, no definite diverticulitis Urinary bladder intact Prominent fat-containing inguinal hernias Prominent osteopenia Advanced disc narrowing L2-L3 and advanced disc narrowing hip joints IMPRESSION: Recommend hepatobiliary sonography to exclude gallbladder sludge Severe scarring left kidney with left renal calculi No hydronephrosis or ureteral calculi Normal appendix Colonic diverticulosis, no diverticulitis I did assess patient and she has no tenderness in epigastric area or right upper quadrant area. Her CT abdomen pelvis shows possible gallbladder sludge. Can follow-up with this as an outpatient. Patient was given morphine for pain. I spoke to patient about antibiotics and she is able to take Levaquin 500 mg but somehow Levaquin 750 mg she is allergic to. I will give patient 500 mg of Levaquin for a total of 7 days. Patient is to follow-up with urine culture with primary provider. Patient feels comfortable plan of care and verbalized understanding. Alfonzo dictation: Although this document has been carefully reviewed, there may still be some phonetic and other typographical errors. These errors are purely grammatical due to imperfections in the software program and should not be construed in any way to compromise the substance of the patient's medical care during this visit. Patient data External records reviewed:: [facility] previous records Clinical information provided by:: patient Social determinants that could affect healthcare access:: none Patient has the following chronic illnesses:: see note How is presenting disease/condition affected by chronic disease/condition?: no chronic disease Evaluation data The following diagnostics were reviewed and interpreted by me:: lab results and radiology exam(s) Lab and/or radiology exams considered but not ordered:: none Interpretation Summary: see note Medications / Prescriptions Medications or Prescriptions considered but not ordered:: none Medication administrations:: Medication Administration History Discontinued Medications Levofloxacin (Levofloxacin 250 Mg Tablet) 500 mg PO X1 ONE Stop: 09/16/24 20:36 Last Admin: 09/16/24 21:56 Dose: 500 mg Documented By: LIZETH Metoclopramide HCl (Metoclopramide Inj 5 Mg/Ml Vial 2 Ml) 10 mg IM X1 ONE; Protocol Stop: 09/16/24 19:10 Last Admin: 09/16/24 19:36 Dose: Not Given Documented By: CHRISTIE Non-Admin Reason: Discontinued Metoclopramide HCl (Metoclopramide Inj 5 Mg/Ml Vial 2 Ml) 10 mg IVP X1 ONE; Protocol Stop: 09/16/24 19:31 Last Admin: 09/16/24 19:35 Dose: 10 mg Documented By: CHRISTIE Morphine Sulfate (Morphine Sulf Inj 10 Mg/Ml Vial) 5 mg IM X1 ONE Stop: 09/16/24 19:10 Last Admin: 09/16/24 19:36 Dose: Not Given Documented By: CHRISTIE Non-Admin Reason: Discontinued Morphine Sulfate (Morphine Sulf Inj 10 Mg/Ml Vial) 5 mg IVP X1 ONE Stop: 09/16/24 19:31 Last Admin: 09/16/24 19:35 Dose: 5 mg Documented By: CHRISTIE Morphine Sulfate (Morphine Sulf Inj 10 Mg/Ml Vial) 5 mg IVP X1 ONE Stop: 09/16/24 20:26 Last Admin: 09/16/24 21:57 Dose: 5 mg Documented By: LIZETH see mar Consultations Consultation(s) initiated? (list below): No Diagnosis Differential diagnosis abdominal pain: abdominal pain, calculus of kidney and constipation Most likely diagnosis given after review of the tests above:: kidnsy stone Admission Indicated Admission indicated?: not indicated Admission Request Was there a request for admission?: No Disposition Plan Disposition Plan: Discharge Discharge Attestation Discharge Attestation: The patient and all family members were given an opportunity to ask questions and understood the discharge instructions. Discharge instructions specifically effects, indications for sooner follow up or return to the emergency department, and the expected course of current diagnosis. Patient condition: Stable Discharge Plan Plan Patient Disposition: HOME (Self Care) Patient condition on transfer: Stable Prescriptions/Referrals Prescriptions/Med Rec: No Action ondansetron 4 mg tablet,disintegrating 4 mg PO Q8H PRN (Reason: Nausea And Vomiting) mirtazapine 30 mg tablet 60 mg PO HS rosuvastatin 10 mg tablet 10 mg PO HS Patient Comments: TAKE 1 TABLET BY MOUTH ONCE DAILY spironolactone 25 mg tablet 25 mg PO DAILY Patient Comments: TAKE 1 TABLET BY MOUTH ONCE DAILY levofloxacin 750 mg tablet 750 mg PO QDAY Qty: 5 0RF tamsulosin 0.4 mg capsule 0.4 mg PO QDAY Qty: 7 0RF Eliquis 5 mg Tablet 5 mg PO BID losartan [Cozaar] 100 mg Tablet 100 mg PO DAILY metoprolol tartrate 25 mg Tablet 25 mg PO HS hydroxyzine HCl 10 mg Tablet 10 mg PO BID omeprazole 20 mg capsule,delayed release(DR/EC) 20 mg PO QDAY Qty: 30 0RF acetaminophen [Aphen] 325 mg tablet 650 mg PO QID PRN (Reason: pain) Qty: 60 0RF polyethylene glycol 3350 [Miralax] 17 gram powder in packet 17 g PO BID Qty: 30 1RF Rx Instructions: X 2 weeks and then once a day for 1 week. diltiazem HCl [DILT-XR] 120 mg capsule,ext.rel 24h degradable PO sertraline 100 mg tablet 100 mg PO QHSPRN Patient Comments: TAKE ONE TABLET BY MOUTH AT BEDTIME amitriptyline 100 mg tablet 100 mg PO .qhs Patient Comments: TAKE ONE TABLET BY MOUTH AT BEDTIME NEEDED conjugated estrogens 0.625 mg/gram cream 0.1 mg topical QDAY Qty: 30 0RF acetaminophen [Tylenol] 325 mg tablet 650 mg PO QID PRN (Reason: pain) Qty: 20 0RF ondansetron 4 mg tablet,disintegrating 4 mg PO Q8H PRN (Reason: nausea and vomiting) Qty: 20 0RF Referrals: No Primary/Family,Physician [Primary Care Provider] - In 1 week Problem List Clinical Impression: UTI (urinary tract infection), Kidney stone Patient/Caregiver Discharge Instructions Discharge Activity: activity as tolerated Education Materials: ED CYSTITIS Female Adult, ED Kidney Stone w/ Colic Additional Instructions: Follow up with primary provider in 1-2 days. Come back to ED if symptoms change or worsen Print Language: Romansh Stand Alone Forms: Janki Award Info., Patient Portal Info Letter PA/COUNTER SUPERVISOR Supervising Physician PA/COUNTER SUPERVISOR Supervising Physician: michael
[2024-09-16] MEDS: LEVOFLOXACIN 250 MG TABLET 500 MG PO (21:56)
[2024-09-16 22:01] VITALS: BP 166/74; PULSE 84; RESP 18; TEMP 36.9; O2SAT 96
--- NOTE | 2024-09-16 22:05 | PC.NURSE ---
Nurse arranged for transportation for patient from [facility] Trip #[id number]. Per business center representative drive away driver will arrive in 30-3 hrs. patient will wait in waiting room until drive away driver arrives.
== END 2024-09-16 22:07 | disposition home or self-care (01) ==
PROVIDERS: Nurse Practitioner Primary Care; Emergency Provider Family Medicine
DX: N39.0 Urinary tract infection, site not specified (principal); N20.0 Calculus of kidney; K57.30 Diverticulosis of large intestine without perforation or abscess without bleeding; J44.9 Chronic obstructive pulmonary disease, unspecified; I48.91 Unspecified atrial fibrillation; I10 Essential (primary) hypertension; K21.9 Gastro-esophageal reflux disease without esophagitis; E78.00 Pure hypercholesterolemia, unspecified; F17.210 Nicotine dependence, cigarettes, uncomplicated; Z85.3 Personal history of malignant neoplasm of breast; Z86.73 Personal history of transient ischemic attack (TIA), and cerebral infarction without residual deficits; Z90.710 Acquired absence of both cervix and uterus; Z92.21 Personal history of antineoplastic chemotherapy; Z79.01 Long term (current) use of anticoagulants; Z79.899 Other long term (current) drug therapy; Z88.0 Allergy status to penicillin; Z88.1 Allergy status to other antibiotic agents; Z88.6 Allergy status to analgesic agent; Z88.2 Allergy status to sulfonamides; Z88.5 Allergy status to narcotic agent
CPT/HCPCS: 36415; 74176; 80053; 81001; 83690; 85025; 87086; 96374; 96375; 96376; 99284; J2270; J2765; A9270

== ENCOUNTER 2024-09-21 17:14 | Emergency (ER) | payer MEDICAID, SELFPAY ==
[2024-09-21 17:16] VITALS: BMI 23.7
[2024-09-21 17:35] VITALS: BP 138/94; PULSE 108; RESP 17; TEMP 37.1; O2SAT 98
--- NOTE | 2024-09-21 17:41 | PD.EDRME ---
Rapid Medical Screening Exam [facility] Arrival date/time: 09/21/24 17:14 CC: Left lower quadrant abdominal pain with bilateral mid back pain HPI ongoing for the past 3 weeks took all the antibiotics for her UTI, diagnosed last visit, without any relief. Patient states only medications that provide pain relief are morphine and Dilaudid. Review of the medical records of 3 CTs of the abdomen pelvis since August 12, 2024, which are unremarkable for any acute finding Chief Complaint: Abdominal Pain Time Seen by Provider: 09/21/24 17:39 Vital signs: Vital Signs Temperature 98.7 F 09/21/24 17:35 Pulse Rate 108 H 09/21/24 17:35 Respiratory Rate 17 09/21/24 17:35 Blood Pressure 138/94 H 09/21/24 17:35 Pulse Oximetry (%) 98 09/21/24 17:35 Oxygen Delivery Method Room Air 09/21/24 17:35
[2024-09-21 18:12] LABS: Basophils # (Auto) 0.1 Thou/mm3 (0.0-0.2); Basophils % (Auto) 1 % (0-2.5); Eosinophils # (Auto) 0.3 Thou/mm3 (0.0-0.5); Eosinophils % (Auto) 3 % (0-10); Hematocrit 37.9 % (36.0-46.0); Hemoglobin 12.8 g/dL (12.0-16.0); Immature Granulocytes Auto 0.03 Thou/mm3 (0.00-0.00); Lymphocytes # (Auto) 4.0 Thou/mm3 (1.0-4.8); Lymphocytes % (Auto) 37 % (10-50); Mean Corpuscular HGB Conc 33.8 g/dl (31.0-37.0); Mean Corpuscular Hemoglobin 31.5 pg (25.0-35.0); Mean Corpuscular Volume 93 fL (80-100); Monocytes # (Auto) 0.6 Thou/mm3 (0.0-0.8); Monocytes % (Auto) 6 % (0-12); Neutrophils # (Auto) 5.9 Thou/mm3 (1.8-7.7); Neutrophils % (Auto) 54 % (37-80); Nucleated Red Blood Cell # 0.00 Thou/mm3 (0.00-0.00); Nucleated Red Blood Cell % 0 /100 WBC (0); Platelet Count 262 Thou/mm3 (140-440); RDW Standard Deviation 47.0 fL (36.4-46.3); Red Blood Count 4.06 Miln/mm3 (4.00-5.20); White Blood Count 10.9 Thou/mm3 (3.6-11.0)
[2024-09-21 18:35] LABS: Alanine Aminotransferase 14 U/L (10-49); Albumin, Serum 4.6 gm/dL (3.4-4.8); Albumin/Globulin Ratio 1.8 (1.2-2.2); Alkaline Phosphatase 124 U/L (46-116); Anion Gap 9 (7-16); Aspartate Amino Transferase 28 U/L (0-34); BUN/Creatinine Ratio 6 Ratio (12-20); Bilirubin,Total 0.2 mg/dL (0.3-1.2); Blood Urea Nitrogen < 5 mg/dL (9-23); Calcium 10.6 mg/dL (8.3-10.6); Calcium (Corrected) 10.6 mg/dL (8.5-10.1); Carbon Dioxide 25.1 mMol/L (20.0-31.0); Chloride 107 mMol/L (98-107); Creatinine (Component) 0.9 mg/dL (0.6-1.3); Estimated Creatinine Clearance 72.4 mL/min (>60); Globulin 2.5 gm/dL (2.3-3.5); Glucose 96 mg/dL (74-106); Osmolality,Calculated 278 (275-295); Potassium 3.8 mMol/L (3.4-5.1); Sodium 141 mMol/L (136-145); Total Protein 7.1 gm/dL (5.7-8.2); eGFR > 60 See Note
[2024-09-21 18:35] LABS: Collection Type, Urine Clean Catch
[2024-09-21 18:58] LABS: Bacteria,Urine 1+; Bilirubin,Urine Negative (Negative); Blood,Urine Negative (Negative); Clarity,Urine Clear (Clear/Hazy); Color,Urine Lt-Yellow (Lt Yel-Yel); Glucose, Urine Negative (Negative); Hyaline Casts,Urine < 1 /hpf (0-1); Ketones,Urine Negative (Negative); Leukocyte Esterase,Urine Positive (Negative); Nitrite,Urine Negative (Negative); PH,Urine 6.0 (5.0-7.0); Protein,Urine Negative (Neg - Trace); RBC,Urine 3 /hpf (0-3); Specific Gravity,Urine 1.006 (1.001-1.035); Squamous Epithelial Cell,Urine 5 /hpf (0-5); Urobilinogen,Urine Negative mg/dL (0.0-1.0); WBC,Urine 4 /hpf (0-5)
[2024-09-21 19:02] LABS: Culture Indicated,Urine Yes
--- NOTE | 2024-09-21 20:47 | XR_ITS ---
Examination: CT abdomen with intravenous contrast CT pelvis with intravenous contrast 2-D coronal reconstructions 2-D sagittal reconstructions Date and time of exam:September 21, 2024 at 2151 hours INDICATIONS: Abdominal pain this week with kidney infections COMPARISON: September 16, 2024. CTDI: vol (mGy) 17.96 DLP: (mGycm) 811 Technique: Multiple axial sections of the abdomen and pelvis have been obtained. 64 slice high-resolution scanner used. 3 mm axial sections have been obtained, post intravenous injection 60 cc Isovue 370 2-D sagittal, coronal reconstructions obtained. Low dose protocols were performed. One or more of the following dose reduction techniques were used; automated exposure control, adjustment of the mA and/or KV according to patient size, use of iterative reconstruction technique. Findings: No focal liver or splenic lesions No gallstones No pancreatic or adrenal mass Severe scarring left kidney with 3 mm calculus, no hydronephrosis or ureteral calculi No renal edema Normal appendix Colonic diverticulosis, no diverticulitis No bladder mass or bladder calculi Absent uterus Prominent osteopenia Advanced disc narrowing L2-L3 IMPRESSION: Severe scarring left kidney with 3 mm left renal calculus, no hydronephrosis or ureteral calculi No renal abscesses Normal appendix No bladder mass or bladder calculi
--- NOTE | 2024-09-21 20:48 | PD.EDABDPN ---
ED Abdominal Pain RME/HPI General Chief Complaint: Abdominal Pain Stated complaint: UTI, KIDNEY INFECTION HAS WORSEN, ABD PAIN Time seen by provider: 09/21/24 17:39 Arrival date/time: 09/21/24 17:14 RME / HPI RME / HPI narrative: 63-year-old female patient with history of chronic abdominal pain, came in for evaluation regarding worsening left lower quadrant abdominal pain with bilateral mid back pain. HPI ongoing for the past 3 weeks took all the antibiotics for her UTI, diagnosed last visit, without any relief. Patient states only medications that provide pain relief are morphine and Dilaudid.Review of the medical records of 3 CTs of the abdomen pelvis since August 12, 2024, which are unremarkable for any acute finding. Patient denies any fever. Denies any other complaints or medications taken prior to arrival. Related Data Home Medications ?Medication ?Instructions ?Recorded ?Confirmed apixaban 5 mg tablet (Eliquis) 5 mg PO BID 06/09/23 05/27/24 hydroxyzine HCl 10 mg tablet 10 mg PO BID 06/09/23 08/20/23 losartan 100 mg tablet (Cozaar) 100 mg PO DAILY 06/09/23 05/27/24 metoprolol tartrate 25 mg tablet 25 mg PO HS 06/09/23 08/20/23 mirtazapine 30 mg tablet 60 mg PO HS 08/20/23 08/20/23 ondansetron 4 mg disintegrating 4 mg PO Q8H PRN Nausea And Vomiting 08/20/23 08/20/23 tablet rosuvastatin 10 mg tablet 10 mg PO HS 08/20/23 08/20/23 spironolactone 25 mg tablet 25 mg PO DAILY 08/20/23 08/20/23 amitriptyline 100 mg tablet 100 mg PO .qhs 05/27/24 05/27/24 diltiazem HCl 120 mg mg PO 05/27/24 capsule,extended release 24 hr, controlled (DILT-XR) sertraline 100 mg tablet 100 mg PO QHSPRN 05/27/24 05/27/24 Held on 05/29/24. Instructions: Resume on 06/16/24. till antibiotic course is done and sees a PCP Previous Rx's ?Medication ?Instructions ?Recorded omeprazole 20 mg capsule,delayed 20 mg PO QDAY #30 caps 08/14/23 release levofloxacin 750 mg tablet 750 mg PO QDAY pyelonephritis #5 08/21/23 tabs tamsulosin 0.4 mg capsule 0.4 mg PO QDAY dysuria, hesitancy 08/21/23 #7 caps acetaminophen 325 mg tablet (Aphen) 650 mg (2 x 325 mg) PO QID PRN 08/25/23 pain #60 tabs polyethylene glycol 3350 17 gram 17 g PO BID #30 ea 09/15/23 oral powder packet (Miralax) conjugated estrogens 0.625 mg/gram 0.1 mg topical QDAY #30 grams 05/29/24 vaginal cream acetaminophen 325 mg tablet 650 mg (2 x 325 mg) PO QID PRN 08/11/24 (Tylenol) pain #20 tabs ondansetron 4 mg disintegrating 4 mg PO Q8H PRN nausea and 08/11/24 tablet vomiting #20 tabs levofloxacin 500 mg tablet 500 mg PO Q24H 6 days #6 tabs 09/16/24 Allergies Allergy/AdvReac Type Severity Reaction Status Date / Time amoxicillin Allergy Severe ITCHY Verified 09/21/24 17:15 ceftriaxone (From Rocephin) Allergy Severe Swelling Verified 09/21/24 17:15 of Lip/Tongue/Throat cephalexin Allergy Severe Anaphylaxis Verified 09/21/24 17:15 dicyclomine (From Bentyl) Allergy Severe Rash Verified 09/21/24 17:15 hydrocodone Allergy Severe GI UPSET Verified 09/21/24 17:15 ibuprofen Allergy Severe Abdominal Verified 09/21/24 17:15 Pain ketorolac (From Toradol) Allergy Severe Hives Verified 09/21/24 17:15 meropenem Allergy Severe Anaphylaxis Verified 09/21/24 17:15 moxifloxacin Allergy Severe Hives Verified 09/21/24 17:15 Penicillins Allergy Severe HIVES,SWELL Verified 09/21/24 17:15 ING Sulfa (Sulfonamide Allergy Severe HIVES,SWELL Verified 09/21/24 17:15 Antibiotics) ING tramadol Allergy Severe Shakiness Verified 09/21/24 17:15 Review of Systems Review of Systems Narrative Review of Systems: Review of system reviewed and within normal limits except mentioned in HPI ED Exam Narrative Physical exam: VITAL SIGNS: Reviewed. GENERAL APPEARANCE: Alert and interactive, follows commands, no acute distress, HEAD AND FACE: Non-traumatic. ENT: PERRL, pink conjunctivitis, eyelid no trauma, Mucous membrane moist. NECK: Supple, nontender, no nuchal rigidity. CHEST: No tenderness, no crepitus, no paradoxical movement, no retractions. LUNGS: Clear, well ventilated, symmetric, no rales, no wheezing, no ronchi, no stridor, good breath sounds bilaterally. HEART: Regular rate, regular rhythm, no murmur, no gallops. ABDOMEN: Soft, positive bowel sounds, nondistended, no guarding, left lower quadrant pain, no rebound, no masses, RECTAL: Deferred. GENITAL: Deferred. NEUROLOGICAL: Gross motor function intact sensory function intact, Appropriate for age. MUSCULOSKELETAL: low back nontender, full range of motion. EXTREMITIES: Nontender, full range of motion. SKIN: Color pink, dry, no rash, no lacerations, no abrasions, no contusions. LYMPHATICS: Deferred. Course Quality Measures none Orders Category Date Time Status CT Screening NOW Care 09/21/24 20:47 Active Insert IV NOW Care 09/21/24 21:[address] abdomen pelvis w con Stat Exams 09/21/24 20:47 Completed CBC Stat Lab 09/21/24 18:00 Completed CMP [Comprehensive Metabolic Panel] Stat Lab 09/21/24 18:00 Completed Urinalysis, C/S if Indicated Stat Lab 09/21/24 18:30 Completed Urine Culture Stat Lab 09/21/24 18:30 Received HYDROmorphone INJ [Dilaudid Inj] Med 09/21/24 22:38 Discontinued 2 mg IM X1 ONE Morphine Inj Med 09/21/24 21:34 Discontinued 4 mg IVP X1 ONE Vital Signs Vital signs: Vital Signs Temperature 98.7 F 09/21/24 17:35 Pulse Rate 108 H 09/21/24 17:35 Respiratory Rate 17 09/21/24 17:35 Blood Pressure 138/94 H 09/21/24 17:35 Pulse Oximetry (%) 98 09/21/24 17:35 Oxygen Delivery Method Room Air 09/21/24 17:35 Abdominal Pain MDM MDM Narrative MDM Narrative:: 63-year-old female patient with history of chronic abdominal pain, came in for evaluation regarding worsening left lower quadrant abdominal pain with bilateral mid back pain. HPI ongoing for the past 3 weeks took all the antibiotics for her UTI, diagnosed last visit, without any relief. Patient states only medications that provide pain relief are morphine and Dilaudid.Review of the medical records of 3 CTs of the abdomen pelvis since August 12, 2024, which are unremarkable for any acute finding. Patient denies any fever. Denies any other complaints or medications taken prior to arrival. Patient's CBC came back unremarkable. CMP came back no abnormality also noted. Urinalysis no UTI. CT scan of the abdomen pelvis showed Severe scarring left kidney with 3 mm left renal calculus, no hydronephrosis or ureteral calculi No renal abscesses Normal appendix No bladder mass or bladder calculi Patient initially was given morphine, 4 mg IV and Zofran, and according to her it does not help her abdominal pain. I added Dilaudid IM. And patient is happy. I told her to follow-up with PCP and for referral to pain management doctor. Because her abdominal pain is chronic. Patient agrees with the plan. Patient data External records reviewed:: None Clinical information provided by:: patient Social determinants that could affect healthcare access:: none Patient has the following chronic illnesses:: History of kidney stones How is presenting disease/condition affected by chronic disease/condition?: exacerbated by Evaluation data The following diagnostics were reviewed and interpreted by me:: lab results and radiology exam(s) Lab and/or radiology exams considered but not ordered:: None Interpretation Summary: See results MDM Medications / Prescriptions Medications or Prescriptions considered but not ordered:: None Medication administrations:: Medication Administration History Discontinued Medications Hydromorphone HCl (Hydromorphone Inj 2 Mg/Ml Vial) 2 mg IM X1 ONE Stop: 09/21/24 22:39 Morphine Sulfate (Morphine Sulf Inj 10 Mg/Ml Vial) 4 mg IVP X1 ONE Stop: 09/21/24 21:35 Last Admin: 09/21/24 21:40 Dose: 4 mg Documented By: DB Morphine and Dilaudid IM Consultations Consultation(s) initiated? (list below): No Diagnosis Differential diagnosis abdominal pain: abdominal pain, constipation, diverticulitis and pancreatitis Most likely diagnosis given after review of the tests above:: Chronic abdominal pain Admission Indicated Admission indicated?: not indicated Admission Request Was there a request for admission?: No Disposition Plan Disposition Plan: Discharge Discharge Attestation Discharge Attestation: The patient was given an opportunity to ask questions and understood the discharge instructions. Discharge instructions specifically effects, indications for sooner follow up or return to the emergency department, and the expected course of current diagnosis. Patient condition: Stable Discharge Plan Plan Patient Disposition: HOME (Self Care) Discharge Disposition comment: Stable Prescriptions/Referrals Prescriptions/Med Rec: No Action ondansetron 4 mg tablet,disintegrating 4 mg PO Q8H PRN (Reason: Nausea And Vomiting) mirtazapine 30 mg tablet 60 mg PO HS rosuvastatin 10 mg tablet 10 mg PO HS Patient Comments: TAKE 1 TABLET BY MOUTH ONCE DAILY spironolactone 25 mg tablet 25 mg PO DAILY Patient Comments: TAKE 1 TABLET BY MOUTH ONCE DAILY levofloxacin 750 mg tablet 750 mg PO QDAY Qty: 5 0RF tamsulosin 0.4 mg capsule 0.4 mg PO QDAY Qty: 7 0RF levofloxacin 500 mg tablet 500 mg PO Q24H 6 Days Qty: 6 0RF Eliquis 5 mg Tablet 5 mg PO BID losartan [Cozaar] 100 mg Tablet 100 mg PO DAILY metoprolol tartrate 25 mg Tablet 25 mg PO HS hydroxyzine HCl 10 mg Tablet 10 mg PO BID omeprazole 20 mg capsule,delayed release(DR/EC) 20 mg PO QDAY Qty: 30 0RF acetaminophen [Aphen] 325 mg tablet 650 mg PO QID PRN (Reason: pain) Qty: 60 0RF polyethylene glycol 3350 [Miralax] 17 gram powder in packet 17 g PO BID Qty: 30 1RF Rx Instructions: X 2 weeks and then once a day for 1 week. diltiazem HCl [DILT-XR] 120 mg capsule,ext.rel 24h degradable PO sertraline 100 mg tablet 100 mg PO QHSPRN Patient Comments: TAKE ONE TABLET BY MOUTH AT BEDTIME amitriptyline 100 mg tablet 100 mg PO .qhs Patient Comments: TAKE ONE TABLET BY MOUTH AT BEDTIME NEEDED conjugated estrogens 0.625 mg/gram cream 0.1 mg topical QDAY Qty: 30 0RF acetaminophen [Tylenol] 325 mg tablet 650 mg PO QID PRN (Reason: pain) Qty: 20 0RF ondansetron 4 mg tablet,disintegrating 4 mg PO Q8H PRN (Reason: nausea and vomiting) Qty: 20 0RF Referrals: No Primary/Family,Physician [Primary Care Provider] - In 1 week Problem List Clinical Impression: Chronic abdominal pain Patient/Caregiver Discharge Instructions Discharge Activity: activity as tolerated Education Materials: Understanding Chronic Pain Additional Instructions: Thank you for the opportunity for serving you today. You are stable for discharged . You are advised to: Follow-up with your PCP in 1 to 2 days unless your PCP to refer you to a pain management doctor Return to ED for worsening of symptoms Increase oral fluids Print Language: Afghan Stand Alone Forms: [employer] Award Info., Patient Portal Info Letter PA/MARIS Supervising Physician PA/MARIS Supervising Physician: MD Patrick
[2024-09-21] MEDS: MORPHINE SULF INJ 10 MG/ML VIAL 4 MG IVP (21:40)
[2024-09-21] MEDS: HYDROmorphone INJ 2 MG/ML VIAL IM (22:53)
== END 2024-09-21 22:55 | disposition home or self-care (01) ==
PROVIDERS: Registered Nurse General Practice; Emergency Provider Emergency Medicine
DX: R10.32 Left lower quadrant pain (principal); G89.29 Other chronic pain; Z87.442 Personal history of urinary calculi; Z87.440 Personal history of urinary (tract) infections; Z88.0 Allergy status to penicillin; Z88.1 Allergy status to other antibiotic agents; Z88.6 Allergy status to analgesic agent; Z88.2 Allergy status to sulfonamides; Z88.5 Allergy status to narcotic agent
CPT/HCPCS: 36415; 74177; 80053; 81001; 85025; 87086; 96372; 96374; 99283; A4649; J1171; J2270; Q9967

== ENCOUNTER 2024-09-22 01:17 | Emergency (ER) | payer MEDICAID, SELFPAY ==
[2024-09-22 01:21] VITALS: BMI 23.7
[2024-09-22 01:34] VITALS: BP 110/78; PULSE 92; RESP 18; TEMP 36.6; O2SAT 96
--- NOTE | 2024-09-22 01:39 | XR_ITS ---
Examination: CT cervical spine without contrast 2-D sagittal reconstructions 2-D coronal reconstructions 3-D reconstructions. Exam date and time:September 22, 2024 0201 hours INDICATIONS: Ground-level fall one hour ago with injury to the neck, neck pain. CTDI:vol (mGy) 14.56. DLP: (mGycm) 366. Technique: Multiple 2 mm axial sections of the cervical spine have been obtained. The coronal and sagittal reconstructions have been obtained. 3-D reconstructions have been obtained. Low dose protocols were performed. One or more of the following dose reduction techniques were used; automated exposure control, adjustment of the mA and/or KV according to patient size, use of iterative reconstruction technique. Findings: Axial sections demonstrate intact base of the skull. C1 exhibit satisfactory relationship to the odontoid. No acute cervical vertebral body fracture seen. Alignment posterior spinous processes satisfactory. Advanced degenerative disc disease C5-C6 Impression: No acute cervical fracture.
--- NOTE | 2024-09-22 01:39 | XR_ITS ---
Examination: CT maxillofacial, without intravenous contrast. 2-D sagittal reconstructions. 3-D reconstructions. Date and time of exam:September 22, at 2025, 0159 hours INDICATIONS: Patient fell one hour ago with injury to the face, facial pain CTDI: vol (mGy):25.80. DLP: (mGycm):531. Technique: Multiple axial images of maxillofacial region, 3.0 mm slice thickness. 2-D sagittal and coronal reconstructions. 3-D reconstructions. Low dose protocols were performed. One or more of the following dose reduction techniques were used; automated exposure control, adjustment of the mA and/or KV according to patient size, use of iterative reconstruction technique. Findings: Frontal bone is intact Orbital rims intact No nasal bone fracture. No depression zygomatic arches. Maxilla and mandible are intact Benign cystic lesion in the anterior maxilla, axial image 55 which may represent a granuloma Significant maxillary sinusitis on the right. IMPRESSION: No acute facial fracture.
--- NOTE | 2024-09-22 01:39 | XR_ITS ---
Examination: CT brain head without contrast. 2-D sagittal coronal reconstructions Date and time of exam:September 22, 2024 0157 hours INDICATIONS: Ground-level fall one hour ago with injury to the head, head pain CTDI: vol (mGy):48.40. DLP: (mGycm):947. Technique: Multiple CT axial sections of the brain have been obtained, 5 mm slice thickness. Contrast has not been administered. 2-D sagittal, coronal reconstructions have been obtained Low dose protocols were performed. One or more of the following dose reduction techniques were used; automated exposure control, adjustment of the mA and/or KV according to patient size, use of iterative reconstruction technique. Findings: No significant ventricular enlargement. Intra-axial or extra-axial hemorrhage density is not seen. No mass effect or midline shift Basal cisterns are not remarkable. Fourth ventricle is midline. Cranial vault intact. Old infarct left cerebellar hemisphere Impression: Negative for acute hemorrhage, mass effect or midline shift
--- NOTE | 2024-09-22 01:47 | PD.EDHEAD ---
ED Head Injury RME/HPI General Chief complaint: Head Injury Stated complaint: HEAD INJURY Time Seen by Provider: 09/22/24 01:39 Arrival date/time: 09/22/24 01:17 63F with history of HTN, breast cancer, and Afib on Eliquis presents to ED with head pain after patient fell asleep at the bench outside and fell forward hitting her head and R shoulder. Patient was discharged several hours ago for a separate complaint. Limitations: no limitations Related Data Home Medications ?Medication ?Instructions ?Recorded ?Confirmed apixaban 5 mg tablet (Eliquis) 5 mg PO BID 06/09/23 05/27/24 hydroxyzine HCl 10 mg tablet 10 mg PO BID 06/09/23 08/20/23 losartan 100 mg tablet (Cozaar) 100 mg PO DAILY 06/09/23 05/27/24 metoprolol tartrate 25 mg tablet 25 mg PO HS 06/09/23 08/20/23 mirtazapine 30 mg tablet 60 mg PO HS 08/20/23 08/20/23 ondansetron 4 mg disintegrating 4 mg PO Q8H PRN Nausea And Vomiting 08/20/23 08/20/23 tablet rosuvastatin 10 mg tablet 10 mg PO HS 08/20/23 08/20/23 spironolactone 25 mg tablet 25 mg PO DAILY 08/20/23 08/20/23 amitriptyline 100 mg tablet 100 mg PO .qhs 05/27/24 05/27/24 diltiazem HCl 120 mg mg PO 05/27/24 capsule,extended release 24 hr, controlled (DILT-XR) sertraline 100 mg tablet 100 mg PO QHSPRN 05/27/24 05/27/24 Held on 05/29/24. Instructions: Resume on 06/16/24. till antibiotic course is done and sees a PCP Previous Rx's ?Medication ?Instructions ?Recorded omeprazole 20 mg capsule,delayed 20 mg PO QDAY #30 caps 08/14/23 release levofloxacin 750 mg tablet 750 mg PO QDAY pyelonephritis #5 08/21/23 tabs tamsulosin 0.4 mg capsule 0.4 mg PO QDAY dysuria, hesitancy 08/21/23 #7 caps acetaminophen 325 mg tablet (Aphen) 650 mg (2 x 325 mg) PO QID PRN 08/25/23 pain #60 tabs polyethylene glycol 3350 17 gram 17 g PO BID #30 ea 09/15/23 oral powder packet (Miralax) conjugated estrogens 0.625 mg/gram 0.1 mg topical QDAY #30 grams 05/29/24 vaginal cream acetaminophen 325 mg tablet 650 mg (2 x 325 mg) PO QID PRN 08/11/24 (Tylenol) pain #20 tabs ondansetron 4 mg disintegrating 4 mg PO Q8H PRN nausea and 08/11/24 tablet vomiting #20 tabs Allergies Allergy/AdvReac Type Severity Reaction Status Date / Time amoxicillin Allergy Severe ITCHY Verified 09/22/24 01:28 ceftriaxone (From Rocephin) Allergy Severe Swelling Verified 09/22/24 01:28 of Lip/Tongue/Throat cephalexin Allergy Severe Anaphylaxis Verified 09/22/24 01:28 dicyclomine (From Bentyl) Allergy Severe Rash Verified 09/22/24 01:28 hydrocodone Allergy Severe GI UPSET Verified 09/22/24 01:28 ibuprofen Allergy Severe Abdominal Verified 09/22/24 01:28 Pain ketorolac (From Toradol) Allergy Severe Hives Verified 09/22/24 01:28 meropenem Allergy Severe Anaphylaxis Verified 09/22/24 01:28 moxifloxacin Allergy Severe Hives Verified 09/22/24 01:28 Penicillins Allergy Severe HIVES,SWELL Verified 09/22/24 01:28 ING Sulfa (Sulfonamide Allergy Severe HIVES,SWELL Verified 09/22/24 01:28 Antibiotics) ING tramadol Allergy Severe Shakiness Verified 09/22/24 01:28 Review of Systems Review of Systems Systems Reviewed: All systems reviewed, normal except as documented Constitutional Constitutional: Reports system reviewed and no additional complaints, except as documented, Denies fever(s) and Denies headache(s) ENT Ears, Nose, Mouth, and Throat: Denies disequilibrium and Denies headache(s) Cardiovascular Cardiovascular: Reports system reviewed and no additional complaints, except as documented, Denies chest pain and Denies dyspnea Respiratory Respiratory: Reports system reviewed and no additional complaints, except as documented, Denies cough and Denies dyspnea Gastrointestinal Gastrointestinal: Reports system reviewed and no additional complaints, except as documented, Denies abdominal pain, Denies nausea and Denies vomiting Neurologic Neurologic: Reports system reviewed and no additional complaints, except as documented, Denies confusion, Denies disequilibrium and Denies headache(s) Psychiatric Psychiatric: Denies confusion Past Medical History Past Medical History NEUROLOGIC: Positive Transient Ischemic Attacks (TIA); Negative Dementia, Alzheimer's Disease, Seizures, Amyotrophic Lateral Sclerosis (ALS/Lina Gehrig's) or Head Trauma CARDIAC: Positive Cardiac Disorders (afib), Atrial Fibrillation, Hypercholesterolemia and Hypertension; Negative Myocardial Infarction, Cardiac Arrhythmia, Angina, Heart Murmur, Coronary Artery Disease, Atherosclerotic Heart Disease, Peripheral Vascular Disease, Aneurysm, Congestive Heart Failure, Congenital Heart Disease, Valvular Heart Disease, Rheumatic Fever, Edema, Pericarditis, Cellulitis, Deep Vein Thrombosis, Hypotension or Varicose Veins RESPIRATORY: Positive Chronic Obstructive Pulmonary Disease (COPD); Negative Asthma GASTROINTESTINAL: Positive Gastrointestinal Disorders, Diverticulitis, Diverticulosis and Gastroesophageal Reflux Disease; Negative Hepatitis, Cirrhosis, Pancreatitis, Celiac Disease, Gall Bladder Disease, Gastrointestinal Bleed, Esophageal Varices, Loera's Esophagus, Colitis, Ulcerative Colitis, Ulcer, Colorectal Cancer, Irritable Bowel, Crohn's Disease, Obstructive Bowel, Hiatal Hernia, Hemorrhoids or Obesity GENITOURINARY: Negative Genitourinary Disorders, Renal Disease or Kidney Stones REPRODUCTIVE: Positive Breast Cancer; Negative Pelvic Inflammatory Disease MUSCULOSKELETAL: Positive Arthritis, Rheumatoid Arthritis, Osteoporosis and Degenerative Disk Disease; Negative Gout, Scoliosis, Fractures, Degenerative Joint Disease, Osteomyelitis or Poliovirus ENT: Negative Cataracts, Glaucoma, Blind, Retinal Detachment, Macular Degeneration, Ear Infection, Deafness, Head Trauma or Eye Prosthesis ENDOCRINE: Negative Endocrine Disorders, Diabetes Mellitus Type 1, Diabetes Mellitus Type 2, Hypoglycemia, Santino's Disease, Hyperthyroidism, Hypothyroidism, Parathyroid Disease, Pituitary Disease, Systemic Lupus Erythematosus, Syndrome of Inappropriate Antidiuretic Hormone (SIADH), Adrenal Disease or Graves' Disease HEMATOLOGIC: Negative Anemia or Sickle Cell Disease PSYCHO/SOCIAL: Positive Anxiety and Post Traumatic Stress Disorder; Negative Psychiatric Problems or Bipolar Disorder OTHER HISTORY: Positive Hospitalization, Chemotherapy, Chicken Pox, Measles, Rubella ([place] Measles), Cancer and Breast Cancer; Negative Autoimmune Disease, Shingles, Falls, Blood Transfusions, Anesthesia Reactions, Organ Transplant, Radiation Therapy, MRSA, VRSA, Vancomycin-Resistant Enterococci, Human Immunodeficiency Virus (HIV), Mumps, Pertussis, Clostridium Difficile, Cervical Cancer, Colorectal Cancer, Lung Cancer or Ovarian Cancer Family History FAMILY HISTORY: Positive Family Psychiatric Problems and Family Cardiac Disorders; Negative Family Respiratory Disorders, Family Gastrointestinal Problems, Family Cancer, Family Surgery or Family Anesthesia Reaction Surgical History SURGICAL: Positive Mastectomy and Hysterectomy; Negative Cardiac Surgery, Pacemaker, Endocrine Surgery, Ear Surgery, Abdominal Surgery, Nephrectomy, Joint Replacement, Neurologic Surgery, Brain Shunt, Section or Organ Transplant Social History SMOKING STATUS: Current every day smoker SECOND HAND EXPOSURE: No SUBSTANCE USE: does not use ED Exam General Limitations: Present no limitations General appearance: Present alert and in no apparent distress Head Head exam: Present atraumatic Eye Eye exam: Present normal appearance, PERRL and EOMI ENT ENT exam: Present normal exam, normal oropharynx and mucous membranes moist Neck Neck exam: Present normal inspection, full ROM and trachea midline Chest Chest inspection: Present normal inspection and symmetric chest wall rise Respiratory Respiratory exam: Present normal lung sounds bilaterally Cardiovascular Cardiovascular exam: Present regular rate, normal rhythm and normal heart sounds Abdominal Exam Abdominal exam: Present soft and normal bowel sounds Extremities Exam Extremities exam: Present full ROM Expanded Upper Extremity Exam Shoulder exam: Present full ROM and other (R red stacey on shoulder) Back Exam Back exam: Present normal inspection and full ROM Neurological Exam Neurological exam: Present alert, oriented X3 and CN II-XII intact Psychiatric Psychiatric exam: Present normal affect and normal mood Skin Skin exam: Present warm, dry, intact and normal color Course Quality Measures none Orders Category Date Time Status CT cervical spine wo con Stat Exams 09/22/24 01:[address] facial bones wo con Stat Exams 09/22/24 01:[address] head/brain wo con Stat Exams 09/22/24 01:39 Taken Vital Signs Vital signs: Vital Signs Temperature 98 F 09/22/24 01:34 Pulse Rate 92 09/22/24 01:34 Respiratory Rate 18 09/22/24 01:34 Blood Pressure 110/78 09/22/24 01:34 Pulse Oximetry (%) 96 09/22/24 01:34 Oxygen Delivery Method Room Air 09/22/24 01:34 O2 at 96% on RA and WNLs Head Injury MDM Narrative MDM Narrative:: 63F with history of HTN, breast cancer, and Afib on Eliquis presents to ED with head pain after patient fell asleep at the bench outside and fell forward hitting her head and R shoulder. Patient was discharged several hours ago for a separate complaint. Physical exam reveals normal pupil response and EOM. No gross head trauma Neck ROM intact. Small red stacey on R shoulder, but ROM intact. Patient is afebrile, calm, and alert. Telerad CT read unremarkable. Patient data External records reviewed:: [facility] previous records Clinical information provided by:: patient Social determinants that could affect healthcare access:: none Patient has the following chronic illnesses:: HTN, breast cancer, and Afib on Eliquis How is presenting disease/condition affected by chronic disease/condition?: uneffected by Evaluation data The following diagnostics were reviewed and interpreted by me:: radiology exam(s) Lab and/or radiology exams considered but not ordered:: ordered Interpretation Summary: above Medications / Prescriptions Medications or Prescriptions considered but not ordered:: not ordered Medication administrations:: n/a Consultations Consultation(s) initiated? (list below): No Diagnosis Differential diagnosis head injury: concussion without loss of consciousness, epidural hematoma, closed head injury, subarachnoid hematoma, postconcussion syndrome, subdural hematoma and other (soft tissue contusion) Most likely diagnosis given after review of the tests above:: soft tissue contusion and CHI Admission Indicated Admission indicated?: not indicated Admission Request Was there a request for admission?: No Disposition Plan Disposition Plan: Discharge Discharge Attestation Discharge Attestation: The patient and all family members were given an opportunity to ask questions and understood the discharge instructions. Discharge instructions specifically effects, indications for sooner follow up or return to the emergency department, and the expected course of current diagnosis. Patient condition: Stable Discharge Plan Plan Patient Disposition: HOME (Self Care) Discharge Disposition comment: Stable Prescriptions/Referrals Prescriptions/Med Rec: No Action ondansetron 4 mg tablet,disintegrating 4 mg PO Q8H PRN (Reason: Nausea And Vomiting) mirtazapine 30 mg tablet 60 mg PO HS rosuvastatin 10 mg tablet 10 mg PO HS Patient Comments: TAKE 1 TABLET BY MOUTH ONCE DAILY spironolactone 25 mg tablet 25 mg PO DAILY Patient Comments: TAKE 1 TABLET BY MOUTH ONCE DAILY levofloxacin 750 mg tablet 750 mg PO QDAY Qty: 5 0RF tamsulosin 0.4 mg capsule 0.4 mg PO QDAY Qty: 7 0RF Eliquis 5 mg Tablet 5 mg PO BID losartan [Cozaar] 100 mg Tablet 100 mg PO DAILY metoprolol tartrate 25 mg Tablet 25 mg PO HS hydroxyzine HCl 10 mg Tablet 10 mg PO BID omeprazole 20 mg capsule,delayed release(DR/EC) 20 mg PO QDAY Qty: 30 0RF acetaminophen [Aphen] 325 mg tablet 650 mg PO QID PRN (Reason: pain) Qty: 60 0RF polyethylene glycol 3350 [Miralax] 17 gram powder in packet 17 g PO BID Qty: 30 1RF Rx Instructions: X 2 weeks and then once a day for 1 week. diltiazem HCl [DILT-XR] 120 mg capsule,ext.rel 24h degradable PO sertraline 100 mg tablet 100 mg PO QHSPRN Patient Comments: TAKE ONE TABLET BY MOUTH AT BEDTIME amitriptyline 100 mg tablet 100 mg PO .qhs Patient Comments: TAKE ONE TABLET BY MOUTH AT BEDTIME NEEDED conjugated estrogens 0.625 mg/gram cream 0.1 mg topical QDAY Qty: 30 0RF acetaminophen [Tylenol] 325 mg tablet 650 mg PO QID PRN (Reason: pain) Qty: 20 0RF ondansetron 4 mg tablet,disintegrating 4 mg PO Q8H PRN (Reason: nausea and vomiting) Qty: 20 0RF Problem List Clinical Impression: Closed head injury, Contusion of soft tissue Patient/Caregiver Discharge Instructions Education Materials: ED Soft Tissue Contusion, ED Head Injury with Sleep ... Additional Instructions: Please follow-up with PCP within 24-48 hours and return immediately if symptoms worsen. Print Language: Macedonian Stand Alone Forms: Patient Portal Info Letter DIANA/MARIS Supervising Physician DIANA/MARIS Supervising Physician: Dr. Nguyen
--- NOTE | 2024-09-22 02:53 | PRELIM_ITS ---
CT scan of the head without intravenous contrast (axial sections with sagittal and coronal reformats) September 22, 2024 0157 hours Clinical History: Fall Comparison: None. Findings: There is no evidence of intracranial hemorrhage, mass effect or midline shift. There are periventricular white matter hypodensities, compatible with chronic small vessel ischemia. There is mild volume loss. The calvarium is intact. The mastoid air cells and the visualized paranasal sinuses are clear. Impression: No evidence of intracranial hemorrhage, midline shift or calvarial fracture. Chronic small vessel ischemia and volume loss. Report Electronically Signed By: Leonardo Silveira 09/22/2024 2:53:28 AM [EST]
--- NOTE | 2024-09-22 02:55 | PRELIM_ITS ---
CT maxillofacial without intravenous contrast (axial sections with sagittal and coronal reformats). September 22, 2024 at 0159 hours Clinical History: Fall. Comparison: No prior study is available for comparison. Findings: There is no fracture. The maxillary sinus and orbital rosas are intact. No fluid levels are seen. No evidence of intraorbital hematoma, proptosis, globe injury or radiodense foreign body. The zygomatic arches and mandible are intact. The visualized soft tissues are unremarkable. Mucosal thickening in the right maxillary sinus. Granuloma in the anterior medial maxillary alveolar process. Impression: 1. No maxillofacial fracture. 2. Granuloma in the anterior medial maxillary alveolar process. Consider referral to the dental service. 3. Right maxillary sinusitis. Report Electronically Signed By: Leonardo Silveira 09/22/2024 2:54:27 AM [EST]
--- NOTE | 2024-09-22 03:01 | PRELIM_ITS ---
CT scan of the cervical spine without intravenous contrast (axial sections with sagittal and coronal reformats) September 22, 2024 0201 hours Clinical History: Fall Comparison: None. Findings: There is no fracture or subluxation. There is loss of the physiologic cervical lordosis. Degenerative changes of the imaged portions of the spine. Chronic multilevel disc disease. The prevertebral soft tissues are unremarkable. Vascular calcifications are noted. Impression: No evidence of fracture or subluxation. Report Electronically Signed By: Leonardo Silveira 09/22/2024 3:00:24 AM [EST]
--- NOTE | 2024-09-22 07:30 | PC.CC ---
Armored Car Guard And Driver, Araceli informed that patient needed transportation home. CC met with patient [id number]. Patient appeared alert and oriented to self, place and situation. Patient provided her address of [address] [place] [address], [id number], [place] [address]; cellphone number: [phone]. CC completed [employer] transportation.
== END 2024-09-22 06:58 | disposition home or self-care (01) ==
LOC: SERX 04:16
PROVIDERS: Emergency Provider Emergency Medicine
DX: S09.90XA Unspecified injury of head, initial encounter (principal); S09.93XA Unspecified injury of face, initial encounter; S19.9XXA Unspecified injury of neck, initial encounter; S40.011A Contusion of right shoulder, initial encounter; W08.XXXA Fall from other furniture, initial encounter; Y93.84 Activity, sleeping; I10 Essential (primary) hypertension; I48.91 Unspecified atrial fibrillation; Z79.01 Long term (current) use of anticoagulants; Z85.3 Personal history of malignant neoplasm of breast
CPT/HCPCS: 70450; 70486; 72125; 99283

== ENCOUNTER 2024-09-26 15:57 | Emergency (ER) | payer MEDICAID, SELFPAY ==
[2024-09-26 16:12] VITALS: BP 155/84; PULSE 100; RESP 20; TEMP 37; O2SAT 98; BMI 23.6
--- NOTE | 2024-09-26 16:21 | XR_ITS ---
Examination: CT abdomen and pelvis without contrast. Coronal 3-D reconstructions. Sagittal 2-D reconstructions. Date and time of exam:September 26, 2024, 1710 hours, comparison September 19, 2024. INDICATIONS: Onset left-sided flank pain and hematuria today CTDI: vol (mGy): 7.95. DLP: (mGycm): 475. Technique: Axial images of the abdomen have been obtained, 3 mm slice thickness Intravenous contrast material has not been administered. Low dose protocols were performed. One or more of the following dose reduction techniques were used; automated exposure control, adjustment of the mA and/or KV according to patient size, use of iterative reconstruction technique. Findings: Trace pericardial thickening No focal liver or splenic lesions Contracted gallbladder No pancreatic or adrenal mass. 3 mm 5 mm nonobstructing left renal calculi Severe left renal scarring on the left with mild wall thickening left renal pelvis and left ureter No ureteral calculi Aortic calcification no aneurysmal dilatation Normal appendix No bowel obstruction No bladder mass or bladder calculi Fat-containing femoral hernias Prominent osteopenia with advanced disc narrowing L2-L3,. IMPRESSION: Left renal calculi Severe scarring left kidney Findings most consistent with left pyelonephritis
--- NOTE | 2024-09-26 16:22 | PD.EDRME ---
Rapid Medical Screening Exam RME Arrival date/time: 09/26/24 15:57 63-year-old female presents to the emergency department for complaints of abdominal pain Chief Complaint: Back Pain/Injury Time Seen by Provider: 09/26/24 16:09 Vital signs: Vital Signs Temperature 98.6 F 09/26/24 16:12 Pulse Rate 100 09/26/24 16:12 Respiratory Rate 20 09/26/24 16:12 Blood Pressure 155/84 H 09/26/24 16:12 Pulse Oximetry (%) 98 09/26/24 16:12 Oxygen Delivery Method Room Air 09/26/24 16:12
[2024-09-26 16:49] LABS: Collection Type, Urine Clean Catch
[2024-09-26 17:04] LABS: Bacteria,Urine 3+; Bilirubin,Urine Negative (Negative); Blood,Urine Negative (Negative); Clarity,Urine Turbid (Clear/Hazy); Color,Urine Lt-Yellow (Lt Yel-Yel); Culture Indicated,Urine Contaminated; Glucose, Urine Negative (Negative); Ketones,Urine Negative (Negative); Leukocyte Esterase,Urine Positive (Negative); Nitrite,Urine Negative (Negative); PH,Urine 6.0 (5.0-7.0); Protein,Urine Negative (Neg - Trace); RBC,Urine 3 /hpf (0-3); Specific Gravity,Urine 1.009 (1.001-1.035); Squamous Epithelial Cell,Urine 18 /hpf (0-5); Urobilinogen,Urine Negative mg/dL (0.0-1.0); WBC,Urine 8 /hpf (0-5)
[2024-09-26 17:07] LABS: Basophils # (Auto) 0.1 Thou/mm3 (0.0-0.2); Basophils % (Auto) 1 % (0-2.5); Eosinophils # (Auto) 0.4 Thou/mm3 (0.0-0.5); Eosinophils % (Auto) 4 % (0-10); Hematocrit 36.0 % (36.0-46.0); Hemoglobin 11.8 g/dL (12.0-16.0); Immature Granulocytes Auto 0.03 Thou/mm3 (0.00-0.00); Lymphocytes # (Auto) 3.7 Thou/mm3 (1.0-4.8); Lymphocytes % (Auto) 34 % (10-50); Mean Corpuscular HGB Conc 32.8 g/dl (31.0-37.0); Mean Corpuscular Hemoglobin 31.1 pg (25.0-35.0); Mean Corpuscular Volume 95 fL (80-100); Monocytes # (Auto) 0.7 Thou/mm3 (0.0-0.8); Monocytes % (Auto) 6 % (0-12); Neutrophils # (Auto) 6.0 Thou/mm3 (1.8-7.7); Neutrophils % (Auto) 55 % (37-80); Nucleated Red Blood Cell # 0.00 Thou/mm3 (0.00-0.00); Nucleated Red Blood Cell % 0 /100 WBC (0); Platelet Count 343 Thou/mm3 (140-440); RDW Standard Deviation 48.6 fL (36.4-46.3); Red Blood Count 3.79 Miln/mm3 (4.00-5.20); White Blood Count 10.9 Thou/mm3 (3.6-11.0)
[2024-09-26 17:11] LABS: Amphetamine/Methamp Scrn,U Negative (Negative); Barbiturate Screen,Urine Negative (Negative); Benzodiazepines Screen,Urine Negative (Negative); Benzoylecgonine Screen, Ur Negative (Negative); Fentanyl Screen,Urine Negative (Negative); Opiate Screen,Urine Positive (Negative); THC Screen,Urine Negative (Negative)
[2024-09-26 17:41] LABS: Alanine Aminotransferase 10 U/L (10-49); Albumin, Serum 4.3 gm/dL (3.4-4.8); Albumin/Globulin Ratio 1.8 (1.2-2.2); Alkaline Phosphatase 107 U/L (46-116); Anion Gap 6 (7-16); Aspartate Amino Transferase 18 U/L (0-34); BUN/Creatinine Ratio 12 Ratio (12-20); Bilirubin,Total 0.2 mg/dL (0.3-1.2); Blood Urea Nitrogen 12 mg/dL (9-23); Calcium 10.2 mg/dL (8.3-10.6); Calcium (Corrected) 10.2 mg/dL (8.5-10.1); Carbon Dioxide 27.8 mMol/L (20.0-31.0); Chloride 107 mMol/L (98-107); Creatinine (Component) 1.0 mg/dL (0.6-1.3); Estimated Creatinine Clearance 65.2 mL/min (>60); Globulin 2.4 gm/dL (2.3-3.5); Glucose 89 mg/dL (74-106); Lipase 37 U/L (12-53); Osmolality,Calculated 279 (275-295); Potassium 3.8 mMol/L (3.4-5.1); Sodium 141 mMol/L (136-145); Total Protein 6.7 gm/dL (5.7-8.2); eGFR > 60 See Note
--- NOTE | 2024-09-26 18:41 | PD.EDBACK ---
ED Back Injury Pain RME/HPI General Chief Complaint: Back Pain/Injury Stated Complaint: BLOOD IN URINE Time Seen by Provider: 09/26/24 16:09 Source: patient Arrival date/time: 09/26/24 15:57 Mode of arrival: ambulatory Limitations: no limitations RME / HPI RME / HPI Narrative: Patient is a 61-year-old female who is here today for chronic back pain and abdominal pain. She states her pain is in the lumbar region and radiates to the front abdomen. She denies any nausea and vomiting. She has no lower leg weakness. No rectal paresthesias. No changes in sensation or ambulation. She has no changes in bowel movements or urination. She states this is ongoing pain that she has had for over a year. She states she has been unable to follow-up with her primary care provider and unable to obtain a painter sign maintenance. She states the only medications that seem to help her are Dilaudid, morphine, or Percocet. She has no other acute complaints or concerns. Related Data Home Medications ?Medication ?Instructions ?Recorded ?Confirmed apixaban 5 mg tablet (Eliquis) 5 mg PO BID 06/09/23 05/27/24 hydroxyzine HCl 10 mg tablet 10 mg PO BID 06/09/23 08/20/23 losartan 100 mg tablet (Cozaar) 100 mg PO DAILY 06/09/23 05/27/24 metoprolol tartrate 25 mg tablet 25 mg PO HS 06/09/23 08/20/23 mirtazapine 30 mg tablet 60 mg PO HS 08/20/23 08/20/23 ondansetron 4 mg disintegrating 4 mg PO Q8H PRN Nausea And Vomiting 08/20/23 08/20/23 tablet rosuvastatin 10 mg tablet 10 mg PO HS 08/20/23 08/20/23 spironolactone 25 mg tablet 25 mg PO DAILY 08/20/23 08/20/23 amitriptyline 100 mg tablet 100 mg PO .qhs 05/27/24 05/27/24 diltiazem HCl 120 mg mg PO 05/27/24 capsule,extended release 24 hr, controlled (DILT-XR) sertraline 100 mg tablet 100 mg PO QHSPRN 05/27/24 05/27/24 Held on 05/29/24. Instructions: Resume on 06/16/24. till antibiotic course is done and sees a PCP Previous Rx's ?Medication ?Instructions ?Recorded omeprazole 20 mg capsule,delayed 20 mg PO QDAY #30 caps 08/14/23 release levofloxacin 750 mg tablet 750 mg PO QDAY pyelonephritis #5 08/21/23 tabs tamsulosin 0.4 mg capsule 0.4 mg PO QDAY dysuria, hesitancy 08/21/23 #7 caps acetaminophen 325 mg tablet (Aphen) 650 mg (2 x 325 mg) PO QID PRN 08/25/23 pain #60 tabs polyethylene glycol 3350 17 gram 17 g PO BID #30 ea 09/15/23 oral powder packet (Miralax) conjugated estrogens 0.625 mg/gram 0.1 mg topical QDAY #30 grams 05/29/24 vaginal cream acetaminophen 325 mg tablet 650 mg (2 x 325 mg) PO QID PRN 08/11/24 (Tylenol) pain #20 tabs ondansetron 4 mg disintegrating 4 mg PO Q8H PRN nausea and 08/11/24 tablet vomiting #20 tabs Allergies Allergy/AdvReac Type Severity Reaction Status Date / Time amoxicillin Allergy Severe ITCHY Verified 09/26/24 16:00 ceftriaxone (From Rocephin) Allergy Severe Swelling Verified 09/26/24 16:00 of Lip/Tongue/Throat cephalexin Allergy Severe Anaphylaxis Verified 09/26/24 16:00 dicyclomine (From Bentyl) Allergy Severe Rash Verified 09/26/24 16:00 hydrocodone Allergy Severe GI UPSET Verified 09/26/24 16:00 ibuprofen Allergy Severe Abdominal Verified 09/26/24 16:00 Pain ketorolac (From Toradol) Allergy Severe Hives Verified 09/26/24 16:00 meropenem Allergy Severe Anaphylaxis Verified 09/26/24 16:00 moxifloxacin Allergy Severe Hives Verified 09/26/24 16:00 Penicillins Allergy Severe HIVES,SWELL Verified 09/26/24 16:00 ING Sulfa (Sulfonamide Allergy Severe HIVES,SWELL Verified 09/26/24 16:00 Antibiotics) ING tramadol Allergy Severe Shakiness Verified 09/26/24 16:00 Review of Systems Review of Systems Systems Reviewed: All systems reviewed, normal except as documented ED Exam General Limitations: Present no limitations General appearance: Present alert and in no apparent distress Head Head exam: Present atraumatic Eye Eye exam: Present normal appearance, PERRL and EOMI ENT ENT exam: Present normal exam, normal oropharynx and mucous membranes moist Neck Neck exam: Present normal inspection, full ROM and trachea midline Chest Chest inspection: Present normal inspection and symmetric chest wall rise Respiratory Respiratory exam: Present normal lung sounds bilaterally Cardiovascular Cardiovascular exam: Present regular rate, normal rhythm and normal heart sounds Abdominal Exam Abdominal exam: Present soft; Absent distention Extremities Exam Extremities exam: Present normal inspection and full ROM Back Exam Back exam: Present normal inspection and full ROM Neurological Exam Neurological exam: Present alert and oriented X3 Psychiatric Psychiatric exam: Present anxious Skin Skin exam: Present warm, dry, intact and normal color Course Quality Measures none Orders Category Date Time Status CT abdomen pelvis wo con Stat Exams 09/26/24 16:21 Completed CBC Stat Lab 09/26/24 16:46 Completed Comprehensive Metabolic Panel Stat Lab 09/26/24 16:46 Completed Drug Screen,Urine Stat Lab 09/26/24 16:25 Completed Lipase Stat Lab 09/26/24 16:46 Completed UA, C/S IF [Urinalysis, C/S if Indicated] Stat Lab 09/26/24 16:25 Completed CYCLObenzaPRINE [Flexeril] Med 09/26/24 18:42 Once 10 mg PO X1 ONE Vital Signs Vital signs: Vital Signs Temperature 98.6 F 09/26/24 16:12 Pulse Rate 100 09/26/24 16:12 Respiratory Rate 20 09/26/24 16:12 Blood Pressure 155/84 H 09/26/24 16:12 Pulse Oximetry (%) 98 09/26/24 16:12 Oxygen Delivery Method Room Air 09/26/24 16:12 Back Pain / Injury MDM Narrative MDM Narrative:: Patient is a 61-year-old female who is here today for chronic back pain and abdominal pain. She states her pain is in the lumbar region and radiates to the front abdomen. She denies any nausea and vomiting. She has no lower leg weakness. No rectal paresthesias. No changes in sensation or ambulation. She has no changes in bowel movements or urination. She states this is ongoing pain that she has had for over a year. She states she has been unable to follow-up with her primary care provider and unable to obtain a painter sign maintenance. She states the only medications that seem to help her are Dilaudid, morphine, or Percocet. She has no other acute complaints or concerns. On exam, patient is nontoxic-appearing. Vital signs are stable. Patient requested dose of Dilaudid here which I do not believe appropriate for her therapies. She will be given a dose of Flexeril here. She is advised to follow-up with her primary care provider and pain management to discuss her ongoing pain. We discussed her workup today which essentially unremarkable. She has no dysuria or urinary frequency. No fevers or chills. Do not believe antibiotics are warranted as she is reporting symptoms for greater than 1 year. Patient will be discharged in the at this time. She may return as needed for any worsening or emergent changes. Patient data External records reviewed:: [facility] previous records Clinical information provided by:: patient Social determinants that could affect healthcare access:: none Patient has the following chronic illnesses:: Depression, chronic pain, hyperlipidemia How is presenting disease/condition affected by chronic disease/condition?: exacerbated by Evaluation data The following diagnostics were reviewed and interpreted by me:: lab results (Labs revealed no leukocytosis or significant anemia. There is no metabolic derangement. Urinalysis reveals 8 leukocytes however there 18 squamous cells. Completely we have a contaminated sample.) and radiology exam(s) (Severe left renal scarring on the left with mild wall thickening left renal pelvis and left ureter. This is believed to be chronic findings.) Lab and/or radiology exams considered but not ordered:: n/a Interpretation Summary: n/a Medications / Prescriptions Medications or Prescriptions considered but not ordered:: n/a Medication administrations:: Medication Administration History Cyclobenzaprine HCl (Cyclobenzaprine 5 Mg Tablet) 10 mg PO X1 ONE Stop: 09/26/24 18:43 n/a Consultations Consultation(s) initiated? (list below): No Diagnosis Most likely diagnosis given after review of the tests above:: Chronic pain syndrome Admission Indicated Admission indicated?: not indicated Admission Request Was there a request for admission?: No Disposition Plan Disposition Plan: Discharge Discharge Attestation Discharge Attestation: The patient and all family members were given an opportunity to ask questions and understood the discharge instructions. Discharge instructions specifically effects, indications for sooner follow up or return to the emergency department, and the expected course of current diagnosis. Patient condition: Stable Discharge Plan Plan Patient Disposition: HOME (Self Care) Patient condition on transfer: Stable Prescriptions/Referrals Prescriptions/Med Rec: No Action ondansetron 4 mg tablet,disintegrating 4 mg PO Q8H PRN (Reason: Nausea And Vomiting) mirtazapine 30 mg tablet 60 mg PO HS rosuvastatin 10 mg tablet 10 mg PO HS Patient Comments: TAKE 1 TABLET BY MOUTH ONCE DAILY spironolactone 25 mg tablet 25 mg PO DAILY Patient Comments: TAKE 1 TABLET BY MOUTH ONCE DAILY levofloxacin 750 mg tablet 750 mg PO QDAY Qty: 5 0RF tamsulosin 0.4 mg capsule 0.4 mg PO QDAY Qty: 7 0RF Eliquis 5 mg Tablet 5 mg PO BID losartan [Cozaar] 100 mg Tablet 100 mg PO DAILY metoprolol tartrate 25 mg Tablet 25 mg PO HS hydroxyzine HCl 10 mg Tablet 10 mg PO BID omeprazole 20 mg capsule,delayed release(DR/EC) 20 mg PO QDAY Qty: 30 0RF acetaminophen [Aphen] 325 mg tablet 650 mg PO QID PRN (Reason: pain) Qty: 60 0RF polyethylene glycol 3350 [Miralax] 17 gram powder in packet 17 g PO BID Qty: 30 1RF Rx Instructions: X 2 weeks and then once a day for 1 week. diltiazem HCl [DILT-XR] 120 mg capsule,ext.rel 24h degradable PO sertraline 100 mg tablet 100 mg PO QHSPRN Patient Comments: TAKE ONE TABLET BY MOUTH AT BEDTIME amitriptyline 100 mg tablet 100 mg PO .qhs Patient Comments: TAKE ONE TABLET BY MOUTH AT BEDTIME NEEDED conjugated estrogens 0.625 mg/gram cream 0.1 mg topical QDAY Qty: 30 0RF acetaminophen [Tylenol] 325 mg tablet 650 mg PO QID PRN (Reason: pain) Qty: 20 0RF ondansetron 4 mg tablet,disintegrating 4 mg PO Q8H PRN (Reason: nausea and vomiting) Qty: 20 0RF Referrals: No Primary/Family,Physician [Primary Care Provider] - In 1 week Problem List Clinical Impression: Chronic pain Patient/Caregiver Discharge Instructions Education Materials: ED Chronic Pain Additional Instructions: - Your ongoing pain is best managed by a primary care provider or painter sign maintenance for better continuity of care. - You may return to the emergency room at anytime for any emergent changes. Print Language: Moroccan Stand Alone Forms: [employer] Award Info., Patient Portal Info Letter
== END 2024-09-26 20:23 | disposition home or self-care (01) ==
PROVIDERS: Nurse Practitioner Primary Care; Emergency Provider Emergency Medicine
DX: G89.29 Other chronic pain (principal); R10.9 Unspecified abdominal pain; M54.50 Low back pain, unspecified; F32.A Depression, unspecified; E78.5 Hyperlipidemia, unspecified
CPT/HCPCS: 36415; 74176; 80053; 80307; 81001; 83690; 85025; 99283; A9270

== ENCOUNTER 2024-10-04 19:13 | Emergency (ER) | payer MEDICAID, SELFPAY ==
[2024-10-04 19:15] VITALS: BMI 24.3
[2024-10-04 19:41] VITALS: BP 148/69; PULSE 84; RESP 20; TEMP 37.1; O2SAT 98
--- NOTE | 2024-10-04 19:48 | XR_ITS ---
Examination: CT abdomen and pelvis without contrast. Coronal 3-D reconstructions. Sagittal 2-D reconstructions. Date and time of exam:September 26, 2024, 195 hours, comparison September 26, 2024 INDICATIONS: Bilateral flank pain with painful urination CTDI: vol (mGy): 8.1 DLP: (mGycm): 471 Technique: Axial images of the abdomen have been obtained, 3 mm slice thickness Intravenous contrast material has not been administered. Low dose protocols were performed. One or more of the following dose reduction techniques were used; automated exposure control, adjustment of the mA and/or KV according to patient size, use of iterative reconstruction technique. Findings: No focal liver or splenic lesions No gallstones No pancreatic or adrenal mass Severe scarring left kidney with 5 mm 3 mm left renal calculi, no hydronephrosis or ureteral calculi Normal appendix Colonic diverticulosis Absent uterus No pelvic mass No bladder mass or bladder calculi Prominent osteopenia with moderate disc narrowing L2-L3, L5-S1 IMPRESSION: Severe scarring left kidney, left renal calculus, no hydronephrosis or ureteral calculi Normal appendix No bowel obstruction No bladder mass or bladder calculi
--- NOTE | 2024-10-04 19:49 | EDRME_ITS ---
Rapid Medical Screening Exam [facility] Arrival date/time: 10/04/24 19:13 63F with history of HTN, breast cancer, and Afib on Eliquis presents to ED with continued dysuria and flank pain. Patient has been on Macrobid and Metronidazole for 3 weeks w/o improvement. Chief Complaint: Abdominal Pain Vital signs: Vital Signs Temperature 98.7 F 10/04/24 19:41 Pulse Rate 84 10/04/24 19:41 Respiratory Rate 20 10/04/24 19:41 Blood Pressure 148/69 H 10/04/24 19:41 Pulse Oximetry (%) 98 10/04/24 19:41 Oxygen Delivery Method Room Air 10/04/24 19:41
[2024-10-04 20:47] LABS: Basophils # (Auto) 0.1 Thou/mm3 (0.0-0.2); Basophils % (Auto) 1 % (0-2.5); Eosinophils # (Auto) 0.3 Thou/mm3 (0.0-0.5); Eosinophils % (Auto) 3 % (0-10); Hematocrit 37.2 % (36.0-46.0); Hemoglobin 12.7 g/dL (12.0-16.0); Immature Granulocytes Auto 0.03 Thou/mm3 (0.00-0.00); Lymphocytes # (Auto) 3.2 Thou/mm3 (1.0-4.8); Lymphocytes % (Auto) 30 % (10-50); Mean Corpuscular HGB Conc 34.1 g/dl (31.0-37.0); Mean Corpuscular Hemoglobin 31.9 pg (25.0-35.0); Mean Corpuscular Volume 94 fL (80-100); Monocytes # (Auto) 0.7 Thou/mm3 (0.0-0.8); Monocytes % (Auto) 7 % (0-12); Neutrophils # (Auto) 6.6 Thou/mm3 (1.8-7.7); Neutrophils % (Auto) 60 % (37-80); Nucleated Red Blood Cell # 0.00 Thou/mm3 (0.00-0.00); Nucleated Red Blood Cell % 0 /100 WBC (0); Platelet Count 386 Thou/mm3 (140-440); RDW Standard Deviation 49.1 fL (36.4-46.3); Red Blood Count 3.98 Miln/mm3 (4.00-5.20); White Blood Count 11.0 Thou/mm3 (3.6-11.0)
[2024-10-04 21:11] LABS: Alanine Aminotransferase 13 U/L (10-49); Albumin, Serum 4.8 gm/dL (3.4-4.8); Albumin/Globulin Ratio 1.7 (1.2-2.2); Alkaline Phosphatase 109 U/L (46-116); Anion Gap 8 (7-16); Aspartate Amino Transferase 19 U/L (0-34); BUN/Creatinine Ratio 9 Ratio (12-20); Bilirubin,Total 0.3 mg/dL (0.3-1.2); Blood Urea Nitrogen 8 mg/dL (9-23); Calcium 10.5 mg/dL (8.3-10.6); Calcium (Corrected) 10.5 mg/dL (8.5-10.1); Carbon Dioxide 26.5 mMol/L (20.0-31.0); Chloride 108 mMol/L (98-107); Creatinine (Component) 0.9 mg/dL (0.6-1.3); Estimated Creatinine Clearance 70.1 mL/min (>60); Globulin 2.8 gm/dL (2.3-3.5); Glucose 97 mg/dL (74-106); Osmolality,Calculated 281 (275-295); Potassium 3.5 mMol/L (3.4-5.1); Sodium 142 mMol/L (136-145); Total Protein 7.6 gm/dL (5.7-8.2); eGFR > 60 See Note
[2024-10-04 22:41] LABS: Lipase 35 U/L (12-53)
[2024-10-04 22:59] VITALS: BP 162/73; PULSE 73; RESP 18; TEMP 36.9; O2SAT 100
--- NOTE | 2024-10-04 23:11 | PD.EDABDPN ---
ED Abdominal Pain RME/HPI General Chief Complaint: Abdominal Pain Stated complaint: BLOOD IN URINE AND BILATERAL KIDNEY PAIN Arrival date/time: 10/04/24 19:13 RME / HPI RME / HPI narrative: 10/04/24 19:13 63F with history of HTN, breast cancer, and Afib on Eliquis presents to ED with continued dysuria and flank pain. Patient has been on Macrobid and Metronidazole for 3 weeks w/o improvement. DR. COOK MAIN ED EVALUATION: Patient with Hx of chronic pain and recurrent UTI's seen on 09/26/2024 with BL lumbar pain radiating anteriorly. Reports having finished course of Flagyl/Levaquin, now with escalating predominently left flank pain radiatng to the left groin area ongoing several days. No definitive fever/chills, but reports ongoing nausea and dysuria. Patient has PMH of atrial fibrillation, hypertension, and previous breast cancer. Surgical history noncontributory. Social history negative for alcohol or illicit drug abuse. Related Data Home Medications ?Medication ?Instructions ?Recorded ?Confirmed apixaban 5 mg tablet (Eliquis) 5 mg PO BID 06/09/23 05/27/24 hydroxyzine HCl 10 mg tablet 10 mg PO BID 06/09/23 08/20/23 losartan 100 mg tablet (Cozaar) 100 mg PO DAILY 06/09/23 05/27/24 metoprolol tartrate 25 mg tablet 25 mg PO HS 06/09/23 08/20/23 mirtazapine 30 mg tablet 60 mg PO HS 08/20/23 08/20/23 ondansetron 4 mg disintegrating 4 mg PO Q8H PRN Nausea And Vomiting 08/20/23 08/20/23 tablet rosuvastatin 10 mg tablet 10 mg PO HS 08/20/23 08/20/23 spironolactone 25 mg tablet 25 mg PO DAILY 08/20/23 08/20/23 amitriptyline 100 mg tablet 100 mg PO .qhs 05/27/24 05/27/24 diltiazem HCl 120 mg mg PO 05/27/24 capsule,extended release 24 hr, controlled (DILT-XR) sertraline 100 mg tablet 100 mg PO QHSPRN 05/27/24 05/27/24 Held on 05/29/24. Instructions: Resume on 06/16/24. till antibiotic course is done and sees a PCP Previous Rx's ?Medication ?Instructions ?Recorded omeprazole 20 mg capsule,delayed 20 mg PO QDAY #30 caps 08/14/23 release levofloxacin 750 mg tablet 750 mg PO QDAY pyelonephritis #5 08/21/23 tabs tamsulosin 0.4 mg capsule 0.4 mg PO QDAY dysuria, hesitancy 08/21/23 #7 caps acetaminophen 325 mg tablet (Aphen) 650 mg (2 x 325 mg) PO QID PRN 08/25/23 pain #60 tabs polyethylene glycol 3350 17 gram 17 g PO BID #30 ea 09/15/23 oral powder packet (Miralax) conjugated estrogens 0.625 mg/gram 0.1 mg topical QDAY #30 grams 05/29/24 vaginal cream acetaminophen 325 mg tablet 650 mg (2 x 325 mg) PO QID PRN 08/11/24 (Tylenol) pain #20 tabs ondansetron 4 mg disintegrating 4 mg PO Q8H PRN nausea and 08/11/24 tablet vomiting #20 tabs ciprofloxacin HCl 500 mg tablet 500 mg PO BID 5 days #10 tabs 10/05/24 (Cipro) morphine 30 mg tablet,extended 30 mg PO Q12H #10 tabs 10/05/24 release Allergies Allergy/AdvReac Type Severity Reaction Status Date / Time amoxicillin Allergy Severe ITCHY Verified 10/04/24 19:17 ceftriaxone (From Rocephin) Allergy Severe Swelling Verified 10/04/24 19:17 of Lip/Tongue/Throat cephalexin Allergy Severe Anaphylaxis Verified 10/04/24 19:17 dicyclomine (From Bentyl) Allergy Severe Rash Verified 10/04/24 19:17 hydrocodone Allergy Severe GI UPSET Verified 10/04/24 19:17 ibuprofen Allergy Severe Abdominal Verified 10/04/24 19:17 Pain ketorolac (From Toradol) Allergy Severe Hives Verified 10/04/24 19:17 meropenem Allergy Severe Anaphylaxis Verified 10/04/24 19:17 moxifloxacin Allergy Severe Hives Verified 10/04/24 19:17 Penicillins Allergy Severe HIVES,SWELL Verified 10/04/24 19:17 ING Sulfa (Sulfonamide Allergy Severe HIVESALFREDO Verified 10/04/24 19:17 Antibiotics) ING tramadol Allergy Severe Shakiness Verified 10/04/24 19:17 Review of Systems Review of Systems Systems Reviewed: All systems reviewed, normal except as documented Past Medical History Past Medical History NEUROLOGIC: Positive Transient Ischemic Attacks (TIA) CARDIAC: Positive Cardiac Disorders, Atrial Fibrillation, Hypercholesterolemia and Hypertension RESPIRATORY: Positive Chronic Obstructive Pulmonary Disease (COPD) GASTROINTESTINAL: Positive Gastrointestinal Disorders, Diverticulitis, Diverticulosis and Gastroesophageal Reflux Disease REPRODUCTIVE: Positive Breast Cancer MUSCULOSKELETAL: Positive Arthritis, Rheumatoid Arthritis, Osteoporosis and Degenerative Disk Disease PSYCHO/SOCIAL: Positive Anxiety and Post Traumatic Stress Disorder OTHER HISTORY: Positive Hospitalization, Chemotherapy, Chicken Pox, Measles, Rubella (Portuguese Measles), Cancer and Breast Cancer Family History FAMILY HISTORY: Positive Family Psychiatric Problems and Family Cardiac Disorders Surgical History SURGICAL: Positive Mastectomy and Hysterectomy Social History SMOKING STATUS: Current every day smoker ED Exam Narrative Physical exam: GEN. APPEARANCE: The patient is alert awake oriented X-3 in mild to moderate distress c/o left flank pain, lying down comfortably, does not look ill/toxic. Patient has good eye contact. Patient is cooperative. VITALS: All vitals were reviewed and the pulse ox is 100% on room air which is normal according to my interpretation. HEENT: Normocephalic, atraumatic. Pupils are equal and reactive. Oral mucosa is moist. Patent Nares NECK: Supple, nontender, no thyromegaly, no meningismus, no JVD, no step offs CHEST: Symmetrical, atraumatic, and with equal expansion , Nontender on palpation no deformity and no crepitus. CARDIOVASCULAR: Heart regular rhythm no murmur or gallop rub or extra beats. LUNGS: Clear to auscultation bilaterally with symmetrical chest rise. No laboring tachypnea or wheezing. No intercostal subcostal retraction. No rales and no rhonchi. ABDOMEN: Soft, flat, demonstrates 2+ left tenderness extending towards LLQ, no guarding or rebound tenderness. There are no abnormal masses palpated. Active and normal bowel sounds. EXTREMITIES: Nontender. No edema. No cyanosis. Patient is able to move all 4 extremities well, with full ROM and good CSM. SKIN: Warm and dry, no jaundice or rashes noted. MUSCULOSKELETAL: No lubar or midline bony tenderness. There is no CVA tenderness. No paraspinal muscle spasm or tenderness. NEURO: Patient is CEDENO x 4, Cranial nerves II through XII grossly intact. There is no focal neurologic deficits noted. GCS is 15, PNS and [employer] appear grossly intact. PSYCHIATRIC: Patient is in normal mood and affect, cooperative, no SI or HI or hallucinations. Course Quality Measures none Orders Category Date Time Status CT abdomen pelvis wo con Stat Exams 10/04/24 19:48 Completed CBC Stat Lab 10/04/24 20:22 Completed CMP [Comprehensive Metabolic Panel] Stat Lab 10/04/24 20:22 Completed Lipase Stat Lab 10/04/24 20:22 Completed UA [Urinalysis] Stat Lab 10/05/24 03:29 Completed Urine Culture Stat Lab 10/05/24 03:29 Received CIPROFLOXACIN/D5w 400 MG IVPB [Cipro Ivpb] Med 10/04/24 23:48 Discontinued 400 mg in 200 ml IV Q12HR CIPROFLOXACIN/D5w 400 MG IVPB [Cipro Ivpb] Med 10/04/24 23:45 Discontinued 400 mg in 200 ml IV X1 CIPROFLOXACIN/D5w 400 MG IVPB [Cipro Ivpb] Med 10/04/24 23:53 Discontinued 400 mg in 200 ml IV X1 Metoclopramide Inj [Reglan Inj] Med 10/04/24 23:49 Discontinued 10 mg IVP X1 ONE Morphine Inj Med 10/04/24 23:44 Discontinued 4 mg IVP X1 ONE Ondansetron Inj [Zofran Inj] Med 10/04/24 23:44 Discontinued 4 mg IVP X1 ONE Sodium Chloride 0.9% 1000 ml [Ns] 1,000 ml Med 10/04/24 23:44 Discontinued IV 999 mls/hr Sodium Chloride 0.9% 1000 ml [Ns] 1,000 ml Med 10/04/24 23:54 Discontinued IV 999 mls/hr Vital Signs Vital signs: Vital Signs Temperature 98.7 F 10/04/24 19:41 Pulse Rate 84 10/04/24 19:41 Respiratory Rate 20 10/04/24 19:41 Blood Pressure 148/69 H 10/04/24 19:41 Pulse Oximetry (%) 98 10/04/24 19:41 Oxygen Delivery Method Room Air 10/04/24 19:41 Abdominal Pain MDM MDM Narrative MDM Narrative:: Scribe Attestation: Daniella Fontana, am scribing for and in the presence of Dr. Cook. Provider Notation: Although this document has been carefully reviewed, there may still be some phonetic and other typographical errors. These errors are purely grammatical due to imperfections in the software program and should not be construed in any way to? compromise the substance of the patient's medical care during this visit. Patient with Hx of chronic pain and recurrent UTI's seen on 09/26/2024 with BL lumbar pain radiating anteriorly. Reports having finished course of Flagyl/Levaquin, now with escalating predominantly left flank pain radiating to the left groin area ongoing several days. Please see PE findings. Lab markers demonstrate normal WBC showing no anemia or thrombocytopenia. Serum chemistreis essentially unremarkable excluding marginally elevated calcium level. UA currently pending. Patient hydrated with saline, administered low-dose narcotic in addition to imperical ABX, and remained stable throughout visit. Will likely imperically treat with ABX, analgesic with recommended close F/U with PMD. precautionary instructions issued. Patient data External records reviewed:: [facility] previous records (Reviewed prior ED records from 09/26/24. Patient was seen for Chronic pain.) Clinical information provided by:: patient Social determinants that could affect healthcare access:: none Patient has the following chronic illnesses:: Atrial Fibrillation, Hypercholesterolemia, Hypertension, Chronic Obstructive Pulmonary Disease (COPD), Diverticulitis, Diverticulosis and Gastroesophageal Reflux Disease, Breast Cancer, Arthritis, Rheumatoid Arthritis, Osteoporosis, Degenerative Disk Disease, Anxiety and Post Traumatic Stress Disorder How is presenting disease/condition affected by chronic disease/condition?: exacerbated by Evaluation data The following diagnostics were reviewed and interpreted by me:: lab results and radiology exam(s) Lab and/or radiology exams considered but not ordered:: None Interpretation Summary: RADIOLOGY Abdomen/Pelvis CT: Findings: No focal liver or splenic lesions No gallstones No pancreatic or adrenal mass Severe scarring left kidney with 5 mm 3 mm left renal calculi, no hydronephrosis or ureteral calculi Normal appendix Colonic diverticulosis Absent uterus No pelvic mass No bladder mass or bladder calculi Prominent osteopenia with moderate disc narrowing L2-L3, L5-S1 IMPRESSION: Severe scarring left kidney, left renal calculus, no hydronephrosis or ureteral calculi Normal appendix No bowel obstruction No bladder mass or bladder calculi Medications / Prescriptions Medications or Prescriptions considered but not ordered:: None Medication administrations:: Medication Administration History Discontinued Medications Sodium Chloride (Ns) 1,000 mls @ 999 mls/hr IV .Q1H1M KIRA Stop: 11/03/24 23:43 Last Admin: 10/05/24 00:16 Dose: Not Given Documented By: DAVID Non-Admin Reason: Discontinued Ciprofloxacin/Dextrose (Cipro Ivpb) 400 mg in 200 mls @ 200 mls/hr IV Q12HR KIRA Stop: 10/11/24 23:47 Last Admin: 10/05/24 00:16 Dose: Not Given Documented By: DAVID Non-Admin Reason: Discontinued Ciprofloxacin/Dextrose (Cipro Ivpb) 400 mg in 200 mls @ 200 mls/hr IV X1 ONE Stop: 10/05/24 00:44 Last Admin: 10/05/24 00:16 Dose: Not Given Documented By: DAVID Non-Admin Reason: Discontinued Ciprofloxacin/Dextrose (Cipro Ivpb) 400 mg in 200 mls @ 200 mls/hr IV X1 ONE Stop: 10/05/24 00:52 Last Infusion: 10/05/24 01:20 Dose: Infused Documented By: Admin: 10/05/24 00:06 Dose: 200 mls/hr Documented By: ELIGIO Sodium Chloride (Ns) 1,000 mls @ 999 mls/hr IV .Q1H1M ONE Stop: 10/05/24 00:54 Last Infusion: 10/05/24 01:20 Dose: Infused Documented By: Admin: 10/05/24 00:06 Dose: 999 mls/hr Documented By: ELIGIO Metoclopramide HCl (Metoclopramide Inj 5 Mg/Ml Vial 2 Ml) 10 mg IVP X1 ONE; Protocol Stop: 10/04/24 23:50 Last Admin: 10/05/24 00:05 Dose: 10 mg Documented By: ELIGIO Morphine Sulfate (Morphine Sulf Inj 10 Mg/Ml Vial) 4 mg IVP X1 ONE Stop: 10/04/24 23:45 Last Admin: 10/05/24 00:05 Dose: 4 mg Documented By: ELIGIO Ondansetron HCl (Ondansetron Inj 2 Mg/Ml Inj 2 Ml) 4 mg IVP X1 ONE; Protocol Stop: 10/04/24 23:45 Last Admin: 10/05/24 00:17 Dose: Not Given Documented By: DAVID Non-Admin Reason: Discontinued See above if any. Consultations Consultation(s) initiated? (list below): No Diagnosis Differential diagnosis abdominal pain: abdominal pain, acute appendicitis, calculus of kidney, constipation, diverticulitis, endometriosis, gastroenteritis, pancreatitis and small bowel obstruction Most likely diagnosis given after review of the tests above:: Dysuria Admission Indicated Admission indicated?: not indicated Explain why admission is indicated or not indicated:: Patient does not meet admission criteria. Admission Request Was there a request for admission?: No Disposition Plan Disposition Plan: Discharge Discharge Attestation Discharge Attestation: The patient and all family members were given an opportunity to ask questions and understood the discharge instructions. Discharge instructions specifically effects, indications for sooner follow up or return to the emergency department, and the expected course of current diagnosis. Patient condition: Stable Discharge Plan Plan Patient Disposition: HOME (Self Care) Discharge Disposition comment: stable Prescriptions/Referrals Prescriptions/Med Rec: New ciprofloxacin HCl [Cipro] 500 mg tablet 500 mg PO BID 5 Days Qty: 10 0RF morphine 30 mg tablet extended release 30 mg PO Q12H MDD 2 tab Qty: 10 0RF No Action ondansetron 4 mg tablet,disintegrating 4 mg PO Q8H PRN (Reason: Nausea And Vomiting) mirtazapine 30 mg tablet 60 mg PO HS rosuvastatin 10 mg tablet 10 mg PO HS Patient Comments: TAKE 1 TABLET BY MOUTH ONCE DAILY spironolactone 25 mg tablet 25 mg PO DAILY Patient Comments: TAKE 1 TABLET BY MOUTH ONCE DAILY levofloxacin 750 mg tablet 750 mg PO QDAY Qty: 5 0RF tamsulosin 0.4 mg capsule 0.4 mg PO QDAY Qty: 7 0RF Eliquis 5 mg Tablet 5 mg PO BID losartan [Cozaar] 100 mg Tablet 100 mg PO DAILY metoprolol tartrate 25 mg Tablet 25 mg PO HS hydroxyzine HCl 10 mg Tablet 10 mg PO BID omeprazole 20 mg capsule,delayed release(DR/EC) 20 mg PO QDAY Qty: 30 0RF acetaminophen [Aphen] 325 mg tablet 650 mg PO QID PRN (Reason: pain) Qty: 60 0RF polyethylene glycol 3350 [Miralax] 17 gram powder in packet 17 g PO BID Qty: 30 1RF Rx Instructions: X 2 weeks and then once a day for 1 week. diltiazem HCl [DILT-XR] 120 mg capsule,ext.rel 24h degradable PO sertraline 100 mg tablet 100 mg PO QHSPRN Patient Comments: TAKE ONE TABLET BY MOUTH AT BEDTIME amitriptyline 100 mg tablet 100 mg PO .qhs Patient Comments: TAKE ONE TABLET BY MOUTH AT BEDTIME NEEDED conjugated estrogens 0.625 mg/gram cream 0.1 mg topical QDAY Qty: 30 0RF acetaminophen [Tylenol] 325 mg tablet 650 mg PO QID PRN (Reason: pain) Qty: 20 0RF ondansetron 4 mg tablet,disintegrating 4 mg PO Q8H PRN (Reason: nausea and vomiting) Qty: 20 0RF Referrals: No Primary/Family,Physician [Primary Care Provider] - In 1 week Problem List Clinical Impression: Dysuria Clinical Impression: (Ruled Out): Endometriosis, Calculus of kidney Patient/Caregiver Discharge Instructions Discharge Activity: activity as tolerated Diet Instructions: Force fluids Education Materials: Dysuria Additional Instructions: For fluids/medication as directed/follow-up with primary care doctor for repeat urinalysis and 7 to 10 days. Print Language: Samoan Stand Alone Forms: [employer] Info., Patient Portal Info Letter
[2024-10-05] MEDS: MORPHINE SULF INJ 10 MG/ML VIAL 4 MG IVP (00:05)
[2024-10-05] MEDS: METOCLOPRAMIDE INJ 5 MG/ML VIAL 2 ML 10 MG IVP (00:05)
[2024-10-05] MEDS: SODIUM CHLORIDE 0.9% 1000 ML 1,000 ML 999 ML IV (00:06)
[2024-10-05] MEDS: CIPROFLOXACIN/D5w 400 MG IVPB 400 MG/200 ML BAG 200 MG IV (00:06)
[2024-10-05 01:25] VITALS: BP 139/76; PULSE 93; RESP 14; TEMP 36.7; O2SAT 97
[2024-10-05 03:45] LABS: Collection Type, Urine Clean Catch
[2024-10-05 03:54] LABS: Amorphous Crystals,Urine Present (Absent); Bacteria,Urine 1+; Bilirubin,Urine Negative (Negative); Blood,Urine Negative (Negative); Clarity,Urine Turbid (Clear/Hazy); Color,Urine Yellow (Lt Yel-Yel); Glucose, Urine Negative (Negative); Hyaline Casts,Urine < 1 /hpf (0-1); Ketones,Urine Negative (Negative); Leukocyte Esterase,Urine Positive (Negative); Nitrite,Urine Negative (Negative); PH,Urine 6.0 (5.0-7.0); Protein,Urine Trace (Neg - Trace); RBC,Urine 17 /hpf (0-3); Specific Gravity,Urine 1.012 (1.001-1.035); Squamous Epithelial Cell,Urine 12 /hpf (0-5); Urobilinogen,Urine Negative mg/dL (0.0-1.0); WBC,Urine 17 /hpf (0-5)
== END 2024-10-05 04:19 | disposition home or self-care (01) ==
PROVIDERS: Physician Assistant; Emergency Provider Emergency Medicine
DX: R30.0 Dysuria (principal); R10.31 Right lower quadrant pain
CPT/HCPCS: 36415; 74176; 80053; 81001; 83690; 85025; 87086; 96365; 96375; 99283; J0744; J2270; J2765; J7030

== ENCOUNTER 2024-10-24 16:30 | Emergency (ER) | payer MEDICAID, SELFPAY ==
[2024-10-24 16:45] VITALS: BP 154/61; PULSE 92; RESP 16; TEMP 37.2; O2SAT 98; BMI 24.0
--- NOTE | 2024-10-24 17:14 | PD.EDRME ---
Rapid Medical Screening Exam RME Arrival date/time: 10/24/24 16:30 64-year-old female presents to the Emergency Department today for complaints of abdominal pain and flank pain Chief Complaint: Back Pain/Injury Vital signs: Vital Signs Temperature 99.0 F 10/24/24 16:45 Pulse Rate 92 10/24/24 16:45 Respiratory Rate 16 10/24/24 16:45 Blood Pressure 154/61 H 10/24/24 16:45 Pulse Oximetry (%) 98 10/24/24 16:45 Oxygen Delivery Method Room Air 10/24/24 16:45
[2024-10-24 17:45] LABS: Collection Type, Urine Clean Catch
[2024-10-24 17:49] LABS: Basophils # (Auto) 0.1 Thou/mm3 (0.0-0.2); Basophils % (Auto) 1 % (0-2.5); Eosinophils # (Auto) 0.3 Thou/mm3 (0.0-0.5); Eosinophils % (Auto) 3 % (0-10); Hematocrit 37.3 % (36.0-46.0); Hemoglobin 12.3 g/dL (12.0-16.0); Immature Granulocytes Auto 0.04 Thou/mm3 (0.00-0.00); Lymphocytes # (Auto) 3.6 Thou/mm3 (1.0-4.8); Lymphocytes % (Auto) 32 % (10-50); Mean Corpuscular HGB Conc 33.0 g/dl (31.0-37.0); Mean Corpuscular Hemoglobin 30.6 pg (25.0-35.0); Mean Corpuscular Volume 93 fL (80-100); Monocytes # (Auto) 0.8 Thou/mm3 (0.0-0.8); Monocytes % (Auto) 7 % (0-12); Neutrophils # (Auto) 6.5 Thou/mm3 (1.8-7.7); Neutrophils % (Auto) 58 % (37-80); Nucleated Red Blood Cell # 0.00 Thou/mm3 (0.00-0.00); Nucleated Red Blood Cell % 0 /100 WBC (0); Platelet Count 326 Thou/mm3 (140-440); RDW Standard Deviation 48.2 fL (36.4-46.3); Red Blood Count 4.02 Miln/mm3 (4.00-5.20); White Blood Count 11.4 Thou/mm3 (3.6-11.0)
[2024-10-24 17:58] LABS: Bacteria,Urine Rare; Bilirubin,Urine Negative (Negative); Blood,Urine Negative (Negative); Clarity,Urine Clear (Clear/Hazy); Color,Urine Lt-Yellow (Lt Yel-Yel); Culture Indicated,Urine Not Indicated; Glucose, Urine Negative (Negative); Ketones,Urine Negative (Negative); Leukocyte Esterase,Urine Positive (Negative); Nitrite,Urine Negative (Negative); PH,Urine 7.0 (5.0-7.0); Protein,Urine Negative (Neg - Trace); RBC,Urine 3 /hpf (0-3); Specific Gravity,Urine 1.009 (1.001-1.035); Squamous Epithelial Cell,Urine 7 /hpf (0-5); Urobilinogen,Urine Negative mg/dL (0.0-1.0); WBC,Urine 7 /hpf (0-5)
[2024-10-24 19:10] LABS: Alanine Aminotransferase 21 U/L (10-49); Albumin, Serum 4.5 gm/dL (3.4-4.8); Albumin/Globulin Ratio 2.0 (1.2-2.2); Alkaline Phosphatase 108 U/L (46-116); Anion Gap 8 (7-16); Aspartate Amino Transferase 24 U/L (0-34); BUN/Creatinine Ratio 9 Ratio (12-20); Bilirubin,Total 0.3 mg/dL (0.3-1.2); Blood Urea Nitrogen 7 mg/dL (9-23); C-Reactive Protein < 0.5 mg/dL (0.0-0.9); Calcium 10.0 mg/dL (8.3-10.6); Calcium (Corrected) 10.0 mg/dL (8.5-10.1); Carbon Dioxide 28.5 mMol/L (20.0-31.0); Chloride 108 mMol/L (98-107); Creatinine (Component) 0.8 mg/dL (0.6-1.3); Estimated Creatinine Clearance 77.8 mL/min (>60); Globulin 2.2 gm/dL (2.3-3.5); Glucose 82 mg/dL (74-106); Osmolality,Calculated 283 (275-295); Potassium 3.8 mMol/L (3.4-5.1); Sodium 144 mMol/L (136-145); Total Protein 6.7 gm/dL (5.7-8.2); eGFR > 60 See Note
[2024-10-24 19:24] VITALS: BP 178/90; PULSE 90; RESP 18; TEMP 36.9; O2SAT 100
--- NOTE | 2024-10-24 19:33 | PD.EDBACK ---
ED Back Injury Pain RME/HPI General Chief Complaint: Back Pain/Injury Stated Complaint: FLANK PAIN Time Seen by Provider: 10/24/24 19:25 Arrival date/time: 10/24/24 16:30 RME / HPI RME / HPI Narrative: 64-year-old female presents to the Emergency Department today for complaints of abdominal pain and flank pain. Onset of symptoms for several days, severity of symptoms moderate. Patient is known to this emergency room for the same complaints. Patient is having chronic flank pain and abdominal pain. Was seen here [address] scan of the abdomen and pelvis was done did not show any acute pathology. Patient is currently waiting to be seen by her urologist and pain management doctor. Related Data Home Medications ?Medication ?Instructions ?Recorded ?Confirmed apixaban 5 mg tablet (Eliquis) 5 mg PO BID 06/09/23 05/27/24 hydroxyzine HCl 10 mg tablet 10 mg PO BID 06/09/23 08/20/23 losartan 100 mg tablet (Cozaar) 100 mg PO DAILY 06/09/23 05/27/24 metoprolol tartrate 25 mg tablet 25 mg PO HS 06/09/23 08/20/23 mirtazapine 30 mg tablet 60 mg PO HS 08/20/23 08/20/23 ondansetron 4 mg disintegrating 4 mg PO Q8H PRN Nausea And Vomiting 08/20/23 08/20/23 tablet rosuvastatin 10 mg tablet 10 mg PO HS 08/20/23 08/20/23 spironolactone 25 mg tablet 25 mg PO DAILY 08/20/23 08/20/23 amitriptyline 100 mg tablet 100 mg PO .qhs 05/27/24 05/27/24 diltiazem HCl 120 mg mg PO 05/27/24 capsule,extended release 24 hr, controlled (DILT-XR) sertraline 100 mg tablet 100 mg PO QHSPRN 05/27/24 05/27/24 Held on 05/29/24. Instructions: Resume on 06/16/24. till antibiotic course is done and sees a PCP Previous Rx's ?Medication ?Instructions ?Recorded omeprazole 20 mg capsule,delayed 20 mg PO QDAY #30 caps 08/14/23 release levofloxacin 750 mg tablet 750 mg PO QDAY pyelonephritis #5 07/14/24 tabs tamsulosin 0.4 mg capsule 0.4 mg PO QDAY dysuria, hesitancy 08/21/23 #7 caps acetaminophen 325 mg tablet (Aphen) 650 mg (2 x 325 mg) PO QID PRN 08/25/23 pain #60 tabs polyethylene glycol 3350 17 gram 17 g PO BID #30 ea 09/15/23 oral powder packet (Miralax) conjugated estrogens 0.625 mg/gram 0.1 mg topical QDAY #30 grams 05/29/24 vaginal cream acetaminophen 325 mg tablet 650 mg (2 x 325 mg) PO QID PRN 08/11/24 (Tylenol) pain #20 tabs ondansetron 4 mg disintegrating 4 mg PO Q8H PRN nausea and 08/11/24 tablet vomiting #20 tabs morphine 30 mg tablet,extended 30 mg PO Q12H #10 tabs 10/05/24 release Allergies Allergy/AdvReac Type Severity Reaction Status Date / Time amoxicillin Allergy Severe ITCHY Verified 10/04/24 19:17 ceftriaxone (From Rocephin) Allergy Severe Swelling Verified 10/04/24 19:17 of Lip/Tongue/Throat cephalexin Allergy Severe Anaphylaxis Verified 10/04/24 19:17 dicyclomine (From Bentyl) Allergy Severe Rash Verified 10/04/24 19:17 hydrocodone Allergy Severe GI UPSET Verified 10/04/24 19:17 ibuprofen Allergy Severe Abdominal Verified 10/04/24 19:17 Pain ketorolac (From Toradol) Allergy Severe Hives Verified 10/04/24 19:17 meropenem Allergy Severe Anaphylaxis Verified 10/04/24 19:17 moxifloxacin Allergy Severe Hives Verified 10/04/24 19:17 Penicillins Allergy Severe HIVES,SWELL Verified 10/04/24 19:17 ING Sulfa (Sulfonamide Allergy Severe HIVES,SWELL Verified 10/04/24 19:17 Antibiotics) ING tramadol Allergy Severe Shakiness Verified 10/04/24 19:17 Review of Systems Review of Systems Narrative Review of Systems: Review of system reviewed and within normal limits except mentioned in HPI ED Exam Narrative Physical exam: VITAL SIGNS: Reviewed. GENERAL APPEARANCE: Alert and interactive, follows commands, no acute distress, HEAD AND FACE: Non-traumatic. ENT: PERRL, pink conjunctivitis, eyelid no trauma, Mucous membrane moist. NECK: Supple, nontender, no nuchal rigidity. CHEST: No tenderness, no crepitus, no paradoxical movement, no retractions. LUNGS: Clear, well ventilated, symmetric, no rales, no wheezing, no ronchi, no stridor, good breath sounds bilaterally. HEART: Regular rate, regular rhythm, no murmur, no gallops. ABDOMEN: Soft, positive bowel sounds, nondistended, no guarding, nontender, no rebound, no masses, bilateral flank tenderness RECTAL: Deferred. GENITAL: Deferred. NEUROLOGICAL: Gross motor function intact sensory function intact, Appropriate for age. MUSCULOSKELETAL: low back nontender, full range of motion. EXTREMITIES: Nontender, full range of motion. SKIN: Color pink, dry, no rash, no lacerations, no abrasions, no contusions. LYMPHATICS: Deferred. Course Quality Measures none Orders Category Date Time Status CBC Stat Lab 10/24/24 17:20 Completed CRP [C-Reactive Protein] Stat Lab 10/24/24 17:20 Completed Comprehensive Metabolic Panel Stat Lab 10/24/24 17:20 Completed UA, C/S IF [Urinalysis, C/S if Indicated] Stat Lab 10/24/24 17:28 Completed Morphine* Inj Med 10/24/24 19:32 Once 4 mg IM X1 ONE Ondansetron Odt [Zofran Odt] Med 10/24/24 19:32 Once 4 mg PO X1 ONE Vital Signs Vital signs: Vital Signs Temperature 99.0 F 10/24/24 16:45 Pulse Rate 92 10/24/24 16:45 Respiratory Rate 16 10/24/24 16:45 Blood Pressure 154/61 H 10/24/24 16:45 Pulse Oximetry (%) 98 10/24/24 16:45 Oxygen Delivery Method Room Air 10/24/24 16:45 Back Pain / Injury MDM Narrative MDM Narrative:: 64-year-old female presents to the Emergency Department today for complaints of abdominal pain and flank pain. Onset of symptoms for several days, severity of symptoms moderate. Patient is known to this emergency room for the same complaints. Patient is having chronic flank pain and abdominal pain. Was seen here [address] scan of the abdomen and pelvis was done did not show any acute pathology. Patient is currently waiting to be seen by her urologist and pain management doctor. Patient's laboratory workup today all came back unremarkable and there is no sign of hematuria no UTI. Patient had a tendency of drug-seeking behavior. I gave her morphine IM and Zofran with significant improvement of symptoms patient is stable for discharge home. Patient data External records reviewed:: None Clinical information provided by:: patient Social determinants that could affect healthcare access:: none Patient has the following chronic illnesses:: History of kidney stone How is presenting disease/condition affected by chronic disease/condition?: exacerbated by Evaluation data The following diagnostics were reviewed and interpreted by me:: lab results Lab and/or radiology exams considered but not ordered:: None Interpretation Summary: See results MDM Medications / Prescriptions Medications or Prescriptions considered but not ordered:: None Medication administrations:: Morphine Zofran Consultations Consultation(s) initiated? (list below): No Diagnosis Differential diagnosis back pain/injury: sciatica, strain of lumbar region and renal colic Most likely diagnosis given after review of the tests above:: Chronic bilateral flank pain Admission Indicated Admission indicated?: not indicated Admission Request Was there a request for admission?: No Disposition Plan Disposition Plan: Discharge Discharge Attestation Discharge Attestation: The patient was given an opportunity to ask questions and understood the discharge instructions. Discharge instructions specifically effects, indications for sooner follow up or return to the emergency department, and the expected course of current diagnosis. Patient condition: Stable Discharge Plan Plan Patient Disposition: HOME (Self Care) Discharge Disposition comment: Stable Prescriptions/Referrals Prescriptions/Med Rec: No Action ondansetron 4 mg tablet,disintegrating 4 mg PO Q8H PRN (Reason: Nausea And Vomiting) mirtazapine 30 mg tablet 60 mg PO HS rosuvastatin 10 mg tablet 10 mg PO HS Patient Comments: TAKE 1 TABLET BY MOUTH ONCE DAILY spironolactone 25 mg tablet 25 mg PO DAILY Patient Comments: TAKE 1 TABLET BY MOUTH ONCE DAILY levofloxacin 750 mg tablet 750 mg PO QDAY Qty: 5 0RF tamsulosin 0.4 mg capsule 0.4 mg PO QDAY Qty: 7 0RF Eliquis 5 mg Tablet 5 mg PO BID losartan [Cozaar] 100 mg Tablet 100 mg PO DAILY metoprolol tartrate 25 mg Tablet 25 mg PO HS hydroxyzine HCl 10 mg Tablet 10 mg PO BID omeprazole 20 mg capsule,delayed release(DR/EC) 20 mg PO QDAY Qty: 30 0RF acetaminophen [Aphen] 325 mg tablet 650 mg PO QID PRN (Reason: pain) Qty: 60 0RF polyethylene glycol 3350 [Miralax] 17 gram powder in packet 17 g PO BID Qty: 30 1RF Rx Instructions: X 2 weeks and then once a day for 1 week. diltiazem HCl [DILT-XR] 120 mg capsule,ext.rel 24h degradable PO sertraline 100 mg tablet 100 mg PO QHSPRN Patient Comments: TAKE ONE TABLET BY MOUTH AT BEDTIME amitriptyline 100 mg tablet 100 mg PO .qhs Patient Comments: TAKE ONE TABLET BY MOUTH AT BEDTIME NEEDED conjugated estrogens 0.625 mg/gram cream 0.1 mg topical QDAY Qty: 30 0RF acetaminophen [Tylenol] 325 mg tablet 650 mg PO QID PRN (Reason: pain) Qty: 20 0RF ondansetron 4 mg tablet,disintegrating 4 mg PO Q8H PRN (Reason: nausea and vomiting) Qty: 20 0RF morphine 30 mg tablet extended release 30 mg PO Q12H MDD 2 tab Qty: 10 0RF Referrals: No Primary/Family,Physician [Primary Care Provider] - In 1 week Problem List Clinical Impression: Chronic flank pain Patient/Caregiver Discharge Instructions Discharge Activity: activity as tolerated Education Materials: ED Chronic Pain Additional Instructions: Thank you for the opportunity for serving you today. You are stable for discharged . You are advised to: Follow-up with your PCP in 1 to 2 days Return to ED for worsening of symptoms Increase oral fluids Follow-up with your referral to urologist and pain management doctor Print Language: Kiswahili Stand Alone Forms: [employer] Award Info., Patient Portal Info Letter DIANA/MARIS Supervising Physician TEGAN Supervising Physician: MD Patrick
[2024-10-24] MEDS: MORPHINE SULF INJ 4 MG/ML VIAL IM (19:56)
[2024-10-24] MEDS: ONDANSETRON ODT 4 MG TABRAP PO (19:57)
[2024-10-24 20:02] VITALS: BP 177/102; PULSE 98; RESP 16; TEMP 36.7; O2SAT 100
[2024-10-24 20:04] VITALS: BP 177/102; PULSE 97; RESP 18; TEMP 36.7; O2SAT 99
== END 2024-10-24 20:08 | disposition home or self-care (01) ==
PROVIDERS: Nurse Practitioner Primary Care; Emergency Provider Emergency Medicine
DX: G89.29 Other chronic pain (principal); R10.9 Unspecified abdominal pain
CPT/HCPCS: 36415; 80053; 81001; 85025; 86140; 96372; 99283; J2270; Q0162

== ENCOUNTER 2024-11-12 17:26 | Emergency (ER) | payer MEDICAID, SELFPAY ==
[2024-11-12 17:44] VITALS: BP 119/66; PULSE 95; TEMP 37.1; O2SAT 99; BMI 23.6
--- NOTE | 2024-11-12 17:46 | XR_ITS ---
Examination: PA chest single view Technique: Upright PA chest single view Date and time: November 12 thousand 25, 1907 hrs., Comparison May 26, 2024 Indications: Coughing shortness of breath beginning 2 days ago. Findings: No significant cardiac enlargement Accentuation of the basilar bronchovascular markings. No lobar pneumonia or pulmonary edema Right Port-A-Cath tip SVC satisfactory position Impression: Basilar bronchitis pattern
--- NOTE | 2024-11-12 17:46 | XR_ITS ---
Examination: CT abdomen and pelvis without contrast. Coronal 3-D reconstructions. Sagittal 2-D reconstructions. Date and time of exam:November 22, 2024 1803 hrs. Comparison: October 04, 2024 Indications: Left lower abdominal pain with nausea onset today. CTDI: vol (mGy): 7.9 DLP: (mGycm): 500 Technique: Axial images of the abdomen have been obtained, 3 mm slice thickness Intravenous contrast material has not been administered. Low dose protocols were performed. One or more of the following dose reduction techniques were used; automated exposure control, adjustment of the mA and/or KV according to patient size, use of iterative reconstruction technique. Findings: No focal liver or splenic lesions No gallstones No pancreatic or adrenal mass Severely scarred left kidney with 3 mm left renal calculus and lower pole 5 mm calculus 1 mm right renal calculus, no hydronephrosis or ureteral calculi Aorta normal size Colonic diverticulosis No pericecal inflammatory change No diverticulitis Absent uterus No bladder mass or bladder calculi Moderate to advanced degenerative disc disease L2-L3, L5-S1 Moderate to advanced bilateral hip osteoarthritis Impression: Severely scarred left kidney Bilateral nonobstructing renal calculi No CT findings of appendicitis or bowel obstruction
[2024-11-12 18:11] LABS: Basophils # (Auto) 0.0 Thou/mm3 (0.0-0.2); Basophils % (Auto) 1 % (0-2.5); Eosinophils # (Auto) 0.2 Thou/mm3 (0.0-0.5); Eosinophils % (Auto) 3 % (0-10); Hematocrit 37.8 % (36.0-46.0); Hemoglobin 12.6 g/dL (12.0-16.0); Immature Granulocytes Auto 0.02 Thou/mm3 (0.00-0.00); Lymphocytes # (Auto) 2.8 Thou/mm3 (1.0-4.8); Lymphocytes % (Auto) 32 % (10-50); Mean Corpuscular HGB Conc 33.3 g/dl (31.0-37.0); Mean Corpuscular Hemoglobin 30.8 pg (25.0-35.0); Mean Corpuscular Volume 92 fL (80-100); Monocytes # (Auto) 0.5 Thou/mm3 (0.0-0.8); Monocytes % (Auto) 6 % (0-12); Neutrophils # (Auto) 5.1 Thou/mm3 (1.8-7.7); Neutrophils % (Auto) 58 % (37-80); Nucleated Red Blood Cell # 0.00 Thou/mm3 (0.00-0.00); Nucleated Red Blood Cell % 0 /100 WBC (0); Platelet Count 317 Thou/mm3 (140-440); RDW Standard Deviation 48.8 fL (36.4-46.3); Red Blood Count 4.09 Miln/mm3 (4.00-5.20); White Blood Count 8.7 Thou/mm3 (3.6-11.0)
[2024-11-12 18:30] LABS: Alanine Aminotransferase 20 U/L (10-49); Albumin, Serum 4.5 gm/dL (3.4-4.8); Albumin/Globulin Ratio 1.7 (1.2-2.2); Alkaline Phosphatase 121 U/L (46-116); Anion Gap 8 (7-16); Aspartate Amino Transferase 26 U/L (0-34); BUN/Creatinine Ratio 9 Ratio (12-20); Bilirubin,Total 0.4 mg/dL (0.3-1.2); Blood Urea Nitrogen 9 mg/dL (9-23); Calcium 9.8 mg/dL (8.3-10.6); Calcium (Corrected) 9.8 mg/dL (8.5-10.1); Carbon Dioxide 27.7 mMol/L (20.0-31.0); Chloride 107 mMol/L (98-107); Creatinine (Component) 1.0 mg/dL (0.6-1.3); Estimated Creatinine Clearance 62.3 mL/min (>60); Globulin 2.6 gm/dL (2.3-3.5); Glucose 91 mg/dL (74-106); Lipase 29 U/L (12-53); Osmolality,Calculated 283 (275-295); Potassium 3.7 mMol/L (3.4-5.1); Sodium 143 mMol/L (136-145); Total Protein 7.1 gm/dL (5.7-8.2); eGFR > 60 See Note
[2024-11-12] MEDS: MORPHINE SULF INJ 4 MG/ML VIAL IM (19:23)
[2024-11-12 20:10] LABS: Collection Type, Urine Clean Catch
[2024-11-12 20:31] LABS: Bacteria,Urine 2+; Bilirubin,Urine Negative (Negative); Blood,Urine Negative (Negative); Clarity,Urine Turbid (Clear/Hazy); Color,Urine Lt-Yellow (Lt Yel-Yel); Glucose, Urine Negative (Negative); Hyaline Casts,Urine < 1 /hpf (0-1); Ketones,Urine Negative (Negative); Leukocyte Esterase,Urine Positive (Negative); Nitrite,Urine Negative (Negative); PH,Urine 6.0 (5.0-7.0); Protein,Urine Negative (Neg - Trace); RBC,Urine < 1 /hpf (0-3); Specific Gravity,Urine 1.011 (1.001-1.035); Squamous Epithelial Cell,Urine 25 /hpf (0-5); Urobilinogen,Urine Negative mg/dL (0.0-1.0); WBC,Urine 6 /hpf (0-5)
--- NOTE | 2024-11-12 21:47 | PD.EDABDPN ---
ED Abdominal Pain RME/HPI General Chief Complaint: Abdominal Pain Stated complaint: PAIN LLQ ABD/SHANNEN. KIDNEYS, COUGH Time seen by provider: 11/12/24 17:45 Arrival date/time: 11/12/24 17:26 This is a case of 64-year-old female with history of recurrent urinary tract infection smoker and kidney stone came in in the emergency room due to left flank pain radiating to the left lower quadrant abdomen for 3 days with nausea vomiting patient also have cough and nasal congestion for 2 days persistence of the symptoms this patient decided to start consult here in the emergency room no shortness of breath no chest pain no fever no chills Limitations: no limitations Related Data Home Medications ?Medication ?Instructions ?Recorded ?Confirmed apixaban 5 mg tablet (Eliquis) 5 mg PO BID 06/09/23 05/27/24 hydroxyzine HCl 10 mg tablet 10 mg PO BID 06/09/23 08/20/23 losartan 100 mg tablet (Cozaar) 100 mg PO DAILY 06/09/23 05/27/24 metoprolol tartrate 25 mg tablet 25 mg PO HS 06/09/23 08/20/23 mirtazapine 30 mg tablet 60 mg PO HS 08/20/23 08/20/23 ondansetron 4 mg disintegrating 4 mg PO Q8H PRN Nausea And Vomiting 08/20/23 08/20/23 tablet rosuvastatin 10 mg tablet 10 mg PO HS 08/20/23 08/20/23 spironolactone 25 mg tablet 25 mg PO DAILY 08/20/23 08/20/23 amitriptyline 100 mg tablet 100 mg PO .qhs 05/27/24 05/27/24 diltiazem HCl 120 mg mg PO 05/27/24 capsule,extended release 24 hr, controlled (DILT-XR) sertraline 100 mg tablet 100 mg PO QHSPRN 05/27/24 05/27/24 Held on 05/29/24. Instructions: Resume on 06/16/24. till antibiotic course is done and sees a PCP Previous Rx's ?Medication ?Instructions ?Recorded omeprazole 20 mg capsule,delayed 20 mg PO QDAY #30 caps 08/14/23 release levofloxacin 750 mg tablet 750 mg PO QDAY pyelonephritis #5 08/21/23 tabs tamsulosin 0.4 mg capsule 0.4 mg PO QDAY dysuria, hesitancy 08/21/23 #7 caps acetaminophen 325 mg tablet (Aphen) 650 mg (2 x 325 mg) PO QID PRN 08/25/23 pain #60 tabs polyethylene glycol 3350 17 gram 17 g PO BID #30 ea 09/15/23 oral powder packet (Miralax) conjugated estrogens 0.625 mg/gram 0.1 mg topical QDAY #30 grams 05/29/24 vaginal cream acetaminophen 325 mg tablet 650 mg (2 x 325 mg) PO QID PRN 08/11/24 (Tylenol) pain #20 tabs ondansetron 4 mg disintegrating 4 mg PO Q8H PRN nausea and 08/11/24 tablet vomiting #20 tabs morphine 30 mg tablet,extended 30 mg PO Q12H #10 tabs 10/05/24 release albuterol sulfate 90 mcg/actuation 2 inh inhalation Q4H PRN shortness 11/12/24 aerosol inhaler (Ventolin HFA) of breath or wheezing #8.5 grams nitrofurantoin 100 mg PO BID #20 caps 11/12/24 monohydrate/macrocrystals 100 mg capsule (Macrobid) ondansetron 4 mg disintegrating 4 mg PO Q8H #20 tabs 11/12/24 tablet prednisone 20 mg tablet See Taper PO QDAY 5 days #5 tabs 11/12/24 promethazine-DM 6.25 mg-15 mg/5 mL 5 ml PO Q6H PRN cough #118 mL 11/12/24 oral syrup Allergies Allergy/AdvReac Type Severity Reaction Status Date / Time amoxicillin Allergy Severe ITCHY Verified 11/12/24 17:30 ceftriaxone (From Rocephin) Allergy Severe Swelling Verified 11/12/24 17:30 of Lip/Tongue/Throat cephalexin Allergy Severe Anaphylaxis Verified 11/12/24 17:30 dicyclomine (From Bentyl) Allergy Severe Rash Verified 11/12/24 17:30 hydrocodone Allergy Severe GI UPSET Verified 11/12/24 17:30 ibuprofen Allergy Severe Abdominal Verified 11/12/24 17:30 Pain ketorolac (From Toradol) Allergy Severe Hives Verified 11/12/24 17:30 meropenem Allergy Severe Anaphylaxis Verified 11/12/24 17:30 moxifloxacin Allergy Severe Hives Verified 11/12/24 17:30 Penicillins Allergy Severe HIVES,SWELL Verified 11/12/24 17:30 ING Sulfa (Sulfonamide Allergy Severe HIVES,SWELL Verified 11/12/24 17:30 Antibiotics) ING tramadol Allergy Severe Shakiness Verified 11/12/24 17:30 Review of Systems Review of Systems Systems Reviewed: All systems reviewed, normal except as documented Constitutional Constitutional: Reports system reviewed and no additional complaints, except as documented and Reports as per HPI Cardiovascular Cardiovascular: Reports system reviewed and no additional complaints, except as documented and Reports as per HPI Respiratory Respiratory: Reports system reviewed and no additional complaints, except as documented and Reports as per HPI Gastrointestinal Gastrointestinal: Reports system reviewed and no additional complaints, except as documented and Reports as per HPI Genitourinary Genitourinary: Reports system reviewed and no additional complaints, except as documented and Reports as per HPI Neurologic Neurologic: Reports system reviewed and no additional complaints, except as documented and Reports as per HPI Past Medical History Past Medical History NEUROLOGIC: Positive Transient Ischemic Attacks (TIA); Negative Dementia, Alzheimer's Disease, Seizures, Amyotrophic Lateral Sclerosis (ALS/Lina Gehrig's) or Head Trauma CARDIAC: Positive Cardiac Disorders, Atrial Fibrillation, Hypercholesterolemia and Hypertension; Negative Myocardial Infarction, Cardiac Arrhythmia, Angina, Heart Murmur, Coronary Artery Disease, Atherosclerotic Heart Disease, Peripheral Vascular Disease, Aneurysm, Congestive Heart Failure, Congenital Heart Disease, Valvular Heart Disease, Rheumatic Fever, Edema, Pericarditis, Cellulitis, Deep Vein Thrombosis, Hypotension or Varicose Veins RESPIRATORY: Positive Chronic Obstructive Pulmonary Disease (COPD); Negative Asthma GASTROINTESTINAL: Positive Gastrointestinal Disorders, Diverticulitis, Diverticulosis and Gastroesophageal Reflux Disease; Negative Hepatitis, Cirrhosis, Pancreatitis, Celiac Disease, Gall Bladder Disease, Gastrointestinal Bleed, Esophageal Varices, Loera's Esophagus, Colitis, Ulcerative Colitis, Ulcer, Colorectal Cancer, Irritable Bowel, Crohn's Disease, Obstructive Bowel, Hiatal Hernia, Hemorrhoids or Obesity GENITOURINARY: Negative Genitourinary Disorders, Renal Disease or Kidney Stones REPRODUCTIVE: Positive Breast Cancer; Negative Pelvic Inflammatory Disease MUSCULOSKELETAL: Positive Arthritis, Rheumatoid Arthritis, Osteoporosis and Degenerative Disk Disease; Negative Gout, Scoliosis, Fractures, Degenerative Joint Disease, Osteomyelitis or Poliovirus ENT: Negative Cataracts, Glaucoma, Blind, Retinal Detachment, Macular Degeneration, Ear Infection, Deafness, Head Trauma or Eye Prosthesis ENDOCRINE: Negative Endocrine Disorders, Diabetes Mellitus Type 1, Diabetes Mellitus Type 2, Hypoglycemia, Santino's Disease, Hyperthyroidism, Hypothyroidism, Parathyroid Disease, Pituitary Disease, Systemic Lupus Erythematosus, Syndrome of Inappropriate Antidiuretic Hormone (SIADH), Adrenal Disease or Graves' Disease HEMATOLOGIC: Negative Anemia or Sickle Cell Disease PSYCHO/SOCIAL: Positive Anxiety and Post Traumatic Stress Disorder; Negative Psychiatric Problems or Bipolar Disorder OTHER HISTORY: Positive Hospitalization, Chemotherapy, Chicken Pox, Measles, Rubella ([place]i Measles), Cancer and Breast Cancer; Negative Autoimmune Disease, Shingles, Falls, Blood Transfusions, Anesthesia Reactions, Organ Transplant, Radiation Therapy, MRSA, VRSA, Vancomycin-Resistant Enterococci, Human Immunodeficiency Virus (HIV), Mumps, Pertussis, Clostridium Difficile, Cervical Cancer, Colorectal Cancer, Lung Cancer or Ovarian Cancer Family History FAMILY HISTORY: Positive Family Psychiatric Problems and Family Cardiac Disorders; Negative Family Respiratory Disorders, Family Gastrointestinal Problems, Family Cancer, Family Surgery or Family Anesthesia Reaction Surgical History SURGICAL: Positive Mastectomy and Hysterectomy; Negative Cardiac Surgery, Pacemaker, Endocrine Surgery, Ear Surgery, Abdominal Surgery, Nephrectomy, Joint Replacement, Neurologic Surgery, Brain Shunt, Section or Organ Transplant Social History SMOKING STATUS: Current every day smoker SECOND HAND EXPOSURE: No SUBSTANCE USE: does not use ED Exam General Limitations: Present no limitations General appearance: Present alert, in no apparent distress and other (Patient is awake alert oriented not in distress nontoxic looking well-hydrated well-nourished) Head Head exam: Present atraumatic, normocephalic and normal inspection Eye Eye exam: Present normal appearance, PERRL and EOMI ENT ENT exam: Present normal exam, normal oropharynx, mucous membranes moist and other Neck Neck exam: Present normal inspection, full ROM, trachea midline and other (Negative for meningeal sign); Absent tenderness, meningismus, lymphadenopathy or thyromegaly Chest Chest inspection: Present normal inspection and symmetric chest wall rise; Absent tenderness Respiratory Respiratory exam: Present normal lung sounds bilaterally and wheezes (Wheezing both lower lung field no crackles no rales no retraction no stridor); Absent respiratory distress, stridor, accessory muscle use or prolonged expiratory phase Cardiovascular Cardiovascular exam: Present regular rate, normal rhythm and normal heart sounds; Absent bradycardia, tachycardia, irregular rhythm, systolic murmur or diastolic murmur Abdominal Exam Abdominal exam: Present soft, tenderness (Tenderness on the left lower quadrant left flank but no CVA tenderness) and normal bowel sounds; Absent distention, guarding, rebound, rigidity, diminished bowel sounds, hyperactive bowel sounds, hypoactive bowel sounds, organomegaly, psoas sign, obturator sign, Mehta's sign, Rovsing's sign, tenderness at McBurney's Point, hernia or scar Extremities Exam Extremities exam: Present normal inspection and full ROM Back Exam Back exam: Present normal inspection and full ROM; Absent tenderness, CVA tenderness (R), CVA tenderness (L), muscle spasm, paraspinal tenderness, vertebral tenderness, sciatic notch tenderness (R), sciatic notch tenderness (L), straight leg raise (R) or straight leg raise (L) Neurological Exam Neurological exam: Present alert, oriented X3, CN II-XII intact, normal gait and reflexes normal; Absent motor sensory deficit Psychiatric Psychiatric exam: Present normal affect and normal mood Skin Skin exam: Present warm, dry, intact, normal color and other (Excellent skin turgor) Course Quality Measures none Orders Category Date Time Status Bedside COVID-19 Antigen Test NOW Care 11/12/24 17:46 Active Bedside Influenza A&B Antigen Test NOW Care 11/12/24 17:[address] abdomen pelvis wo con Stat Exams 11/12/24 17:46 Completed XR chest 1V Stat Exams 11/12/24 17:46 Completed CBC Stat Lab 11/12/24 17:55 Completed Comprehensive Metabolic Panel Stat Lab 11/12/24 17:55 Completed Lipase Stat Lab 11/12/24 17:55 Completed Urinalysis Stat Lab 11/12/24 20:00 Completed Albuterol/Ipratr Rt Tamika [Duoneb Rt Tamika] Med 11/12/24 21:33 Discontinued 3 ml INH X1 ONE Dexamethasone Inj [Decadron Inj] Med 11/12/24 21:33 Discontinued 10 mg IM X1 ONE Morphine* Inj Med 11/12/24 19:06 Discontinued 4 mg IM X1 ONE Vital Signs Vital signs: Vital Signs Temperature 98.8 F 11/12/24 17:44 Pulse Rate 95 11/12/24 17:44 Blood Pressure 119/66 11/12/24 17:44 Pulse Oximetry (%) 99 11/12/24 17:44 Oxygen Delivery Method Room Air 11/12/24 17:44 Oxygen saturation is 99% in room air Abdominal Pain MDM MDM Narrative MDM Narrative:: This is a case of 64-year-old female with history of recurrent urinary tract infection smoker and kidney stone came in in the emergency room due to left flank pain radiating to the left lower quadrant abdomen for 3 days with nausea vomiting patient also have cough and nasal congestion for 2 days persistence of the symptoms this patient decided to start consult here in the emergency room no shortness of breath no chest pain no fever no chills physical examination patient is awake alert oriented not in distress nontoxic looking well-hydrated well-nourished vital signs stable BP stable not tachycardic not tachypneic afebrile and nonhypoxic lungs sound noted to be wheezing no crackles no rales no retraction no stridor heart normal rate regular rhythm no murmur abdominal exam noted mild tenderness on the left flank and left lower quadrant no guarding no rebound no rigidity negative psoas negative straight or negative Rovsing's negative McBurney's negative Mehta sign negative CVA tenderness back exam showed normal no tenderness ROM intact neurovascular intact no signs and symptoms of cauda equina the rest of the physical examination and neurological exam is normal and unremarkable due to severe pain patient requested a pain medication patient is allergy to multiple medication patient is allergy to ibuprofen [place] and tramadol patient verbalized that she is not allergy to morphine thus I gave morphine 4 mg IM and observed for any allergic reaction after 1 hour patient was observed no allergic reaction no rash no swelling no shortness of breath blood test showed no leukocytosis no anemia kidney and liver function is normal no electrolyte imbalance lipase is normal urinalysis showed WBC and RBC in urine suggestive of urinary tract infection patient CT scan showed a scarring of the kidney suggestive of nephrolithiasis both kidneys and DDD of the lumbar patient also have acute bronchitis on the x-ray negative for COVID and flu patient was given breathing treatment here in the emergency room and steroid overall patient condition and symptoms resolved patient will follow-up with PCP in 2 days for reevaluation she needs to see a urologist for further evaluation and treatment of kidney stone she also needs to see a pension examiner for recurrent urinary tract infection and neurosurgeon for DDD of the lumbar patient was advised for any worsening symptoms or any emergent concerns she will return to the emergency room immediately or call 911 At the time of exam no signs and symptoms of cauda equina dehydration sepsis or hypoxia or acute abdominal Patient was discharged with comfortable condition walking with stable gait. Patient verbalized no further complains explained diagnosis and answered patient question. Patient is comfortable with the proposed management plan including the need to follow up with his/her primary care physician and any specialist if applicable Discussed patient for any urgent condition or worsening sx, He/She needed to go to emergency room immediately or call 911. Patient acknowledge the responsibility to follow up as instructed and to monitor her/his symptoms. For any persistence of the symptoms for more than 3-5 days return precaution advised. Discussed the result of the test and was given printed discharge instruction Patient data External records reviewed:: [facility] previous records Clinical information provided by:: patient Social determinants that could affect healthcare access:: none Patient has the following chronic illnesses:: None How is presenting disease/condition affected by chronic disease/condition?: no chronic disease Evaluation data The following diagnostics were reviewed and interpreted by me:: lab results and radiology exam(s) Lab and/or radiology exams considered but not ordered:: Reviewed Interpretation Summary: Reviewed Medications / Prescriptions Medications or Prescriptions considered but not ordered:: Given Medication administrations:: Medication Administration History Discontinued Medications Albuterol/Ipratropium (Albuterol/Ipratropium (Duoneb) Rt Tamika 3 Ml Nebu) 3 ml INH X1 ONE Stop: 11/12/24 21:34 Dexamethasone Sodium Phosphate (Dexamethasone Sod Phos Inj 10 Mg/Ml Vial) 10 mg IM X1 ONE Stop: 11/12/24 21:34 Morphine Sulfate (Morphine Sulf Inj 4 Mg/Ml Vial) 4 mg IM X1 ONE Stop: 11/12/24 19:07 Last Admin: 11/12/24 19:23 Dose: 4 mg Documented By: OA Given Consultations Consultation(s) initiated? (list below): No Diagnosis Differential diagnosis abdominal pain: abdominal pain, acute appendicitis, calculus of kidney and diverticulitis Most likely diagnosis given after review of the tests above:: Nephrolithiasis urinary tract infection Admission Indicated Admission indicated?: not indicated Explain why admission is indicated or not indicated:: Not indicated Admission Request Was there a request for admission?: No Admission Attestation Admission request attestation: Not indicated Disposition Plan Disposition Plan: Discharge Discharge Attestation Discharge Attestation: The patient and all family members were given an opportunity to ask questions and understood the discharge instructions. Discharge instructions specifically effects, indications for sooner follow up or return to the emergency department, and the expected course of current diagnosis. Patient condition: Stable Discharge Plan Plan Patient Disposition: HOME (Self Care) Patient condition on transfer: Stable Prescriptions/Referrals Prescriptions/Med Rec: New prednisone 20 mg tablet See Taper PO QDAY 5 Days Qty: 5 0RF Taper: Prednisone Taper 20 mg DAILY for 2 Days and 0 Hour 10 mg DAILY for 2 Days and 0 Hour 5 mg DAILY for 7 Days and 0 Hour promethazine-DM 6.25-15 mg/5 mL syrup 5 ml PO Q6H PRN (Reason: cough) Qty: 118 0RF albuterol sulfate [Ventolin HFA] 90 mcg/actuation HFA aerosol inhaler 2 inh inhalation Q4H PRN (Reason: shortness of breath or wheezing) Qty: 8.5 0RF ondansetron 4 mg tablet,disintegrating 4 mg PO Q8H Qty: 20 0RF nitrofurantoin monohyd/m-cryst [Macrobid] 100 mg capsule 100 mg PO BID Qty: 20 0RF Rx Instructions: must administer with a meal/food No Action ondansetron 4 mg tablet,disintegrating 4 mg PO Q8H PRN (Reason: Nausea And Vomiting) mirtazapine 30 mg tablet 60 mg PO HS rosuvastatin 10 mg tablet 10 mg PO HS Patient Comments: TAKE 1 TABLET BY MOUTH ONCE DAILY spironolactone 25 mg tablet 25 mg PO DAILY Patient Comments: TAKE 1 TABLET BY MOUTH ONCE DAILY levofloxacin 750 mg tablet 750 mg PO QDAY Qty: 5 0RF tamsulosin 0.4 mg capsule 0.4 mg PO QDAY Qty: 7 0RF Eliquis 5 mg Tablet 5 mg PO BID losartan [Cozaar] 100 mg Tablet 100 mg PO DAILY metoprolol tartrate 25 mg Tablet 25 mg PO HS hydroxyzine HCl 10 mg Tablet 10 mg PO BID omeprazole 20 mg capsule,delayed release(DR/EC) 20 mg PO QDAY Qty: 30 0RF acetaminophen [Aphen] 325 mg tablet 650 mg PO QID PRN (Reason: pain) Qty: 60 0RF polyethylene glycol 3350 [Miralax] 17 gram powder in packet 17 g PO BID Qty: 30 1RF Rx Instructions: X 2 weeks and then once a day for 1 week. diltiazem HCl [DILT-XR] 120 mg capsule,ext.rel 24h degradable PO sertraline 100 mg tablet 100 mg PO QHSPRN Patient Comments: TAKE ONE TABLET BY MOUTH AT BEDTIME amitriptyline 100 mg tablet 100 mg PO .qhs Patient Comments: TAKE ONE TABLET BY MOUTH AT BEDTIME NEEDED conjugated estrogens 0.625 mg/gram cream 0.1 mg topical QDAY Qty: 30 0RF acetaminophen [Tylenol] 325 mg tablet 650 mg PO QID PRN (Reason: pain) Qty: 20 0RF ondansetron 4 mg tablet,disintegrating 4 mg PO Q8H PRN (Reason: nausea and vomiting) Qty: 20 0RF morphine 30 mg tablet extended release 30 mg PO Q12H MDD 2 tab Qty: 10 0RF Referrals: No Primary/Family,Physician [Primary Care Provider] - In 1 week Problem List Clinical Impression: Acute bronchitis, Flank pain, Bilateral nephrolithiasis, Urinary tract infection, DDD (degenerative disc disease), lumbar Patient/Caregiver Discharge Instructions Education Materials: Acute Bronchitis, Urinary Tract Infections in Women, Kidney Stones Your Evaluation, ED Degenerative Disk Disease Additional Instructions: Follow-up with your primary care physician in 2 days for reevaluation and to be referred to urologist for further evaluation and treatment of nephrolithiasis and to be referred to pension examiner for recurrent urinary tract infection he also need to be referred to neurosurgeon for DDD lumbar for possible MRI to rule out herniated disc stop smoking take your medication and finish the course of antibiotic increase water intake keep hydrated ice pack and warm compress as needed for pain Print Language: Montserratian Stand Alone Forms: [employer] Award Info., Patient Portal Info Letter PA/FIRE PREVENTION INSPECTOR Supervising Physician PA/FIRE PREVENTION INSPECTOR Supervising Physician: Dr. Dowd
[2024-11-12] MEDS: ALBUTEROL/IPRATROPIUM (Duoneb) RT SOL 3 ML NEBU INH (21:49)
[2024-11-12] MEDS: DEXAMETHASONE SOD PHOS INJ 10 MG/ML VIAL IM (21:49)
[2024-11-12 21:50] VITALS: PULSE 90; RESP 20; O2SAT 100
== END 2024-11-12 22:18 | disposition home or self-care (01) ==
PROVIDERS: Nurse Practitioner Family; Emergency Provider Emergency Medicine
DX: J20.9 Acute bronchitis, unspecified (principal); N20.0 Calculus of kidney; N39.0 Urinary tract infection, site not specified; M51.369 Other intervertebral disc degeneration, lumbar region without mention of lumbar back pain or lower extremity pain; R10.32 Left lower quadrant pain; F17.210 Nicotine dependence, cigarettes, uncomplicated
CPT/HCPCS: 36415; 71045; 74176; 80053; 81001; 83690; 85025; 87400; 87811; 94640; 96372; 99284; A9270; J1100; J2270

== ENCOUNTER 2024-11-29 17:30 | Emergency (ER) | payer MEDICAID, SELFPAY ==
[2024-11-29 17:31] VITALS: BMI 23.6
[2024-11-29 18:05] VITALS: BP 134/78; PULSE 73; RESP 17; TEMP 36.9; O2SAT 99
--- NOTE | 2024-11-29 19:18 | XR_ITS ---
Examination: CT abdomen and pelvis without contrast. Coronal 3-D reconstructions. Sagittal 2-D reconstructions. Date and time of exam: November 29, 2024, 2006 hours COMPARISON: None November 12, 2024 INDICATIONS: Bilateral flank pain today, history kidney stones CTDI: vol (mGy): 4.40 DLP: (mGycm): 453 Technique: Axial images of the abdomen have been obtained, 3 mm slice thickness Intravenous contrast material has not been administered. Low dose protocols were performed. One or more of the following dose reduction techniques were used; automated exposure control, adjustment of the mA and/or KV according to patient size, use of iterative reconstruction technique. Findings: No focal liver or splenic lesions No gallstones No pancreatic or adrenal mass Severe scarring left kidney Left renal calculi, the largest 5 mm 1 mm right renal calculus No hydronephrosis or ureteral calculi No bowel obstruction or CT findings of appendicitis No bladder mass or bladder calculi Severe osteopenia with advanced degenerative disc disease L2-L3 IMPRESSION: Again noted severely scarred left kidney with nonobstructing left renal calculi, nonobstructing right renal calculi
--- NOTE | 2024-11-29 19:19 | PD.EDRME ---
Rapid Medical Screening Exam [facility] Arrival date/time: 11/29/24 17:30 63F with history of HTN, breast cancer, and Afib on Eliquis presents to ED with continued dysuria and flank pain. Chief Complaint: Abdominal Pain Vital signs: Vital Signs Temperature 98.5 F 11/29/24 18:05 Pulse Rate 73 11/29/24 18:05 Respiratory Rate 17 11/29/24 18:05 Blood Pressure 134/78 H 11/29/24 18:05 Pulse Oximetry (%) 99 11/29/24 18:05 Oxygen Delivery Method Room Air 11/29/24 18:05 Exam: Unremarkable Clinical Impression: Kidney stone vs UTI vs chronic pain
[2024-11-29 20:13] LABS: Basophils # (Auto) 0.1 Thou/mm3 (0.0-0.2); Basophils % (Auto) 1 % (0-2.5); Eosinophils # (Auto) 0.3 Thou/mm3 (0.0-0.5); Eosinophils % (Auto) 3 % (0-10); Hematocrit 37.9 % (36.0-46.0); Hemoglobin 12.6 g/dL (12.0-16.0); Immature Granulocytes Auto 0.03 Thou/mm3 (0.00-0.00); Lymphocytes # (Auto) 3.0 Thou/mm3 (1.0-4.8); Lymphocytes % (Auto) 28 % (10-50); Mean Corpuscular HGB Conc 33.2 g/dl (31.0-37.0); Mean Corpuscular Hemoglobin 31.3 pg (25.0-35.0); Mean Corpuscular Volume 94 fL (80-100); Monocytes # (Auto) 0.5 Thou/mm3 (0.0-0.8); Monocytes % (Auto) 5 % (0-12); Neutrophils # (Auto) 6.7 Thou/mm3 (1.8-7.7); Neutrophils % (Auto) 63 % (37-80); Nucleated Red Blood Cell # 0.00 Thou/mm3 (0.00-0.00); Nucleated Red Blood Cell % 0 /100 WBC (0); Platelet Count 321 Thou/mm3 (140-440); RDW Standard Deviation 49.9 fL (36.4-46.3); Red Blood Count 4.03 Miln/mm3 (4.00-5.20); White Blood Count 10.7 Thou/mm3 (3.6-11.0)
[2024-11-29 20:19] LABS: Collection Type, Urine Clean Catch
[2024-11-29 20:31] LABS: Bacteria,Urine Rare; Bilirubin,Urine Negative (Negative); Blood,Urine Negative (Negative); Calcium Oxalate Crystals,Urine 1+; Clarity,Urine Clear (Clear/Hazy); Color,Urine Lt-Yellow (Lt Yel-Yel); Culture Indicated,Urine Not Indicated; Glucose, Urine Negative (Negative); Hyaline Casts,Urine < 1 /hpf (0-1); Ketones,Urine Negative (Negative); Leukocyte Esterase,Urine Positive (Negative); Nitrite,Urine Negative (Negative); PH,Urine 6.0 (5.0-7.0); Protein,Urine Negative (Neg - Trace); RBC,Urine 5 /hpf (0-3); Specific Gravity,Urine 1.011 (1.001-1.035); Squamous Epithelial Cell,Urine 7 /hpf (0-5); Urobilinogen,Urine Negative mg/dL (0.0-1.0); WBC,Urine 7 /hpf (0-5)
[2024-11-29 20:36] LABS: Alanine Aminotransferase 20 U/L (10-49); Albumin, Serum 4.6 gm/dL (3.4-4.8); Albumin/Globulin Ratio 2.2 (1.2-2.2); Alkaline Phosphatase 105 U/L (46-116); Anion Gap 10 (7-16); Aspartate Amino Transferase 27 U/L (0-34); BUN/Creatinine Ratio 8 Ratio (12-20); Bilirubin,Total 0.2 mg/dL (0.3-1.2); Blood Urea Nitrogen 7 mg/dL (9-23); Calcium 9.4 mg/dL (8.3-10.6); Calcium (Corrected) 9.4 mg/dL (8.5-10.1); Carbon Dioxide 26.1 mMol/L (20.0-31.0); Chloride 106 mMol/L (98-107); Creatinine (Component) 0.9 mg/dL (0.6-1.3); Estimated Creatinine Clearance 69.2 mL/min (>60); Globulin 2.1 gm/dL (2.3-3.5); Glucose 143 mg/dL (74-106); Lipase 32 U/L (12-53); Osmolality,Calculated 283 (275-295); Potassium 3.4 mMol/L (3.4-5.1); Sodium 142 mMol/L (136-145); Total Protein 6.7 gm/dL (5.7-8.2); eGFR > 60 See Note
--- NOTE | 2024-11-29 21:50 | PD.EDABDPN ---
ED Abdominal Pain RME/HPI General Chief Complaint: Abdominal Pain Stated complaint: kidney pain and been throwing up last 3 hours Time seen by provider: 11/29/24 22:12 Arrival date/time: 11/29/24 17:30 Source: patient Mode of arrival: ambulatory Limitations: no limitations RME / HPI MD complaint: other (Dysuria) RME / HPI narrative: Dr. Hernandez HPI: 64-year-old female with history of hypertension, atrial fibrillation, presenting to the emergency department with 2 to 3 months history of dysuria. The patient states that she has been on 3 separate antibiotics in the last few weeks to include Levaquin, Macrobid, and Bactrim. The patient states that she continues to have chronic low back pain and some dysuria. She denies change in the pain. It is not sharp and otherwise does not radiate to her abdomen. No palpitations, syncope, or nausea or vomiting. Patient has no chest pain or shortness of breath. The patient states that she is allergic to multiple medications and cannot take Toradol or the any other NSAID. Exam: Related Data Home Medications ?Medication ?Instructions ?Recorded ?Confirmed apixaban 5 mg tablet (Eliquis) 5 mg PO BID 06/09/23 05/27/24 hydroxyzine HCl 10 mg tablet 10 mg PO BID 06/09/23 08/20/23 losartan 100 mg tablet (Cozaar) 100 mg PO DAILY 06/09/23 05/27/24 metoprolol tartrate 25 mg tablet 25 mg PO HS 06/09/23 08/20/23 mirtazapine 30 mg tablet 60 mg PO HS 08/20/23 08/20/23 ondansetron 4 mg disintegrating 4 mg PO Q8H PRN Nausea And Vomiting 08/20/23 08/20/23 tablet rosuvastatin 10 mg tablet 10 mg PO HS 08/20/23 08/20/23 spironolactone 25 mg tablet 25 mg PO DAILY 08/20/23 08/20/23 amitriptyline 100 mg tablet 100 mg PO .qhs 05/27/24 05/27/24 diltiazem HCl 120 mg mg PO 05/27/24 capsule,extended release 24 hr, controlled (DILT-XR) sertraline 100 mg tablet 100 mg PO QHSPRN 05/27/24 05/27/24 Held on 05/29/24. Instructions: Resume on 06/16/24. till antibiotic course is done and sees a PCP Previous Rx's ?Medication ?Instructions ?Recorded omeprazole 20 mg capsule,delayed 20 mg PO QDAY #30 caps 08/14/23 release levofloxacin 750 mg tablet 750 mg PO QDAY pyelonephritis #5 08/21/23 tabs tamsulosin 0.4 mg capsule 0.4 mg PO QDAY dysuria, hesitancy 08/21/23 #7 caps acetaminophen 325 mg tablet (Aphen) 650 mg (2 x 325 mg) PO QID PRN 08/25/23 pain #60 tabs polyethylene glycol 3350 17 gram 17 g PO BID #30 ea 09/15/23 oral powder packet (Miralax) conjugated estrogens 0.625 mg/gram 0.1 mg topical QDAY #30 grams 05/29/24 vaginal cream acetaminophen 325 mg tablet 650 mg (2 x 325 mg) PO QID PRN 08/11/24 (Tylenol) pain #20 tabs ondansetron 4 mg disintegrating 4 mg PO Q8H PRN nausea and 08/11/24 tablet vomiting #20 tabs morphine 30 mg tablet,extended 30 mg PO Q12H #10 tabs 10/05/24 release albuterol sulfate 90 mcg/actuation 2 inh inhalation Q4H PRN shortness 11/12/24 aerosol inhaler (Ventolin HFA) of breath or wheezing #8.5 grams nitrofurantoin 100 mg PO BID #20 caps 11/12/24 monohydrate/macrocrystals 100 mg capsule (Macrobid) ondansetron 4 mg disintegrating 4 mg PO Q8H #20 tabs 11/12/24 tablet promethazine-DM 6.25 mg-15 mg/5 mL 5 ml PO Q6H PRN cough #118 mL 11/12/24 oral syrup Allergies Allergy/AdvReac Type Severity Reaction Status Date / Time amoxicillin Allergy Severe ITCHY Verified 11/12/24 17:30 ceftriaxone (From Rocephin) Allergy Severe Swelling Verified 11/12/24 17:30 of Lip/Tongue/Throat cephalexin Allergy Severe Anaphylaxis Verified 11/12/24 17:30 dicyclomine (From Bentyl) Allergy Severe Rash Verified 11/12/24 17:30 hydrocodone Allergy Severe GI UPSET Verified 11/12/24 17:30 ibuprofen Allergy Severe Abdominal Verified 11/12/24 17:30 Pain ketorolac (From Toradol) Allergy Severe Hives Verified 11/12/24 17:30 meropenem Allergy Severe Anaphylaxis Verified 11/12/24 17:30 moxifloxacin Allergy Severe Hives Verified 11/12/24 17:30 Penicillins Allergy Severe HIVES,SWELL Verified 11/12/24 17:30 ING Sulfa (Sulfonamide Allergy Severe HIVES,SWELL Verified 11/12/24 17:30 Antibiotics) ING tramadol Allergy Severe Shakiness Verified 11/12/24 17:30 Review of Systems Review of Systems Systems Reviewed: All systems reviewed, normal except as documented Constitutional Constitutional: Reports system reviewed and no additional complaints, except as documented and Denies fever(s) Eyes Eyes: Reports system reviewed and no additional complaints, except as documented ENT Ears, Nose, Mouth, and Throat: Reports system reviewed and no additional complaints, except as documented Cardiovascular Cardiovascular: Reports system reviewed and no additional complaints, except as documented, Denies chest pain and Reports dyspnea Respiratory Respiratory: Reports system reviewed and no additional complaints, except as documented, Reports dyspnea and Denies wheezing Integumentary/Breasts Skin/Breast: Reports system reviewed and no additional complaints, except as documented and Denies rash Neurologic Neurologic: Reports system reviewed and no additional complaints, except as documented Psychiatric Psychiatric: Reports system reviewed and no additional complaints, except as documented Allergic/Immunologic Allergic/Immunologic: Denies wheezing Past Medical History Past Medical History NEUROLOGIC: Positive Transient Ischemic Attacks (TIA); Negative Dementia, Alzheimer's Disease, Seizures, Amyotrophic Lateral Sclerosis (ALS/Lina Gehrig's) or Head Trauma CARDIAC: Positive Cardiac Disorders, Atrial Fibrillation, Hypercholesterolemia and Hypertension; Negative Myocardial Infarction, Cardiac Arrhythmia, Angina, Heart Murmur, Coronary Artery Disease, Atherosclerotic Heart Disease, Peripheral Vascular Disease, Aneurysm, Congestive Heart Failure, Congenital Heart Disease, Valvular Heart Disease, Rheumatic Fever, Edema, Pericarditis, Cellulitis, Deep Vein Thrombosis, Hypotension or Varicose Veins RESPIRATORY: Positive Chronic Obstructive Pulmonary Disease (COPD); Negative Asthma GASTROINTESTINAL: Positive Gastrointestinal Disorders, Diverticulitis, Diverticulosis and Gastroesophageal Reflux Disease; Negative Hepatitis, Cirrhosis, Pancreatitis, Celiac Disease, Gall Bladder Disease, Gastrointestinal Bleed, Esophageal Varices, Loera's Esophagus, Colitis, Ulcerative Colitis, Ulcer, Colorectal Cancer, Irritable Bowel, Crohn's Disease, Obstructive Bowel, Hiatal Hernia, Hemorrhoids or Obesity GENITOURINARY: Negative Genitourinary Disorders, Renal Disease or Kidney Stones REPRODUCTIVE: Positive Breast Cancer; Negative Pelvic Inflammatory Disease MUSCULOSKELETAL: Positive Arthritis, Rheumatoid Arthritis, Osteoporosis and Degenerative Disk Disease; Negative Gout, Scoliosis, Fractures, Degenerative Joint Disease, Osteomyelitis or Poliovirus ENT: Negative Cataracts, Glaucoma, Blind, Retinal Detachment, Macular Degeneration, Ear Infection, Deafness, Head Trauma or Eye Prosthesis ENDOCRINE: Negative Endocrine Disorders, Diabetes Mellitus Type 1, Diabetes Mellitus Type 2, Hypoglycemia, Santino's Disease, Hyperthyroidism, Hypothyroidism, Parathyroid Disease, Pituitary Disease, Systemic Lupus Erythematosus, Syndrome of Inappropriate Antidiuretic Hormone (SIADH), Adrenal Disease or Graves' Disease HEMATOLOGIC: Negative Anemia or Sickle Cell Disease PSYCHO/SOCIAL: Positive Anxiety and Post Traumatic Stress Disorder; Negative Psychiatric Problems or Bipolar Disorder OTHER HISTORY: Positive Hospitalization, Chemotherapy, Chicken Pox, Measles, Rubella (Syriac Measles), Cancer and Breast Cancer; Negative Autoimmune Disease, Shingles, Falls, Blood Transfusions, Anesthesia Reactions, Organ Transplant, Radiation Therapy, MRSA, VRSA, Vancomycin-Resistant Enterococci, Human Immunodeficiency Virus (HIV), Mumps, Pertussis, Clostridium Difficile, Cervical Cancer, Colorectal Cancer, Lung Cancer or Ovarian Cancer Family History FAMILY HISTORY: Positive Family Psychiatric Problems and Family Cardiac Disorders; Negative Family Respiratory Disorders, Family Gastrointestinal Problems, Family Cancer, Family Surgery or Family Anesthesia Reaction Surgical History SURGICAL: Positive Mastectomy and Hysterectomy; Negative Cardiac Surgery, Pacemaker, Endocrine Surgery, Ear Surgery, Abdominal Surgery, Nephrectomy, Joint Replacement, Neurologic Surgery, Brain Shunt, Section or Organ Transplant Social History SMOKING STATUS: Current every day smoker SECOND HAND EXPOSURE: No SUBSTANCE USE: does not use ED Exam General Limitations: Present no limitations General appearance: Present alert and in no apparent distress Head Head exam: Present atraumatic Eye Eye exam: Present normal appearance, PERRL and EOMI ENT ENT exam: Present normal exam, normal oropharynx and mucous membranes moist Neck Neck exam: Present normal inspection, full ROM and trachea midline Chest Chest inspection: Present normal inspection and symmetric chest wall rise Respiratory Respiratory exam: Present normal lung sounds bilaterally Cardiovascular Cardiovascular exam: Present regular rate, normal rhythm and normal heart sounds Abdominal Exam Abdominal exam: Present soft and normal bowel sounds; Absent distention, tenderness, guarding, rebound or rigidity Extremities Exam Extremities exam: Present normal inspection and full ROM Back Exam Back exam: Present normal inspection and full ROM; Absent tenderness, CVA tenderness (R), CVA tenderness (L) or vertebral tenderness Neurological Exam Neurological exam: Present alert, oriented X3 and CN II-XII intact Psychiatric Psychiatric exam: Present normal affect and normal mood Skin Skin exam: Present warm, dry, intact and normal color Course Course Course Narrative: Patient was seen by the E provider. Quality Measures none Orders Category Date Time Status CT abdomen pelvis wo con Stat Exams 11/29/24 19:18 Completed CBC Stat Lab 11/29/24 19:49 Completed CMP [Comprehensive Metabolic Panel] Stat Lab 11/29/24 19:49 Completed Lipase Stat Lab 11/29/24 19:49 Completed Urinalysis, C/S if Indicated Stat Lab 11/29/24 20:10 Completed Urine Culture Stat Lab 11/29/24 21:49 Ordered Morphine* Inj Med 11/29/24 21:51 Discontinued 4 mg IM X1 ONE Reevaluation(s) Reevaluation #1: Patient no acute distress. She has no CVA tenderness bilaterally. While the patient was here in the emergency department during her workup her vitals were stable, no fevers. Blood pressure 141/78. Otherwise normal sats. Time: 22:33 Vital Signs Vital signs: Vital Signs Temperature 98.5 F 11/29/24 18:05 Pulse Rate 73 11/29/24 18:05 Respiratory Rate 17 11/29/24 18:05 Blood Pressure 134/78 H 11/29/24 18:05 Pulse Oximetry (%) 99 11/29/24 18:05 Oxygen Delivery Method Room Air 11/29/24 18:05 Abdominal Pain MDM MDM Narrative MDM Narrative:: This is a 64-year-old female with acute on chronic low back pain with frequent UTIs that have been treated multiple times especially in this last year with 3 separate antibiotics. In the emergency department the patient is afebrile. Labs are ordered that do not show infection. CT is ordered that does not show kidney stone or other surgical emergency. The patient is given 1 [place] here however she can follow-up with her primary care for referral to urology if needed. At this time I do not feel the patient should be treated for another dose of antibiotics based on her symptoms and presentation. Patient will continue Tylenol at home as needed. Return precautions were given and understood. The patient will follow-up with department care in 72 hours to get the results of the urine culture. Patient data External records reviewed:: [facility] previous records Clinical information provided by:: patient Social determinants that could affect healthcare access:: none Patient has the following chronic illnesses:: PTSD, high cholesterol, UTI, breast cancer, How is presenting disease/condition affected by chronic disease/condition?: uneffected by Evaluation data The following diagnostics were reviewed and interpreted by me:: lab results Lab and/or radiology exams considered but not ordered:: None Interpretation Summary: CBC shows white count of 10, hemoglobin is stable at 12/37, platelets are normal at 321. Otherwise no significant electrolyte abnormality. Total bili is 0.2 but otherwise not obstructive picture noted in the rest of her labs. The patient has 7 whites 7 squamous cells and otherwise rare bacteria in her urine. No nitrates. Labs are reviewed and interpreted by me. No anemia, thrombocytopenia, or leukocytosis. No UTI. IMPRESSION: CT scan abdomen pelvis. Again noted severely scarred left kidney with nonobstructing left renal calculi, nonobstructing right renal calculi Medications / Prescriptions Medications or Prescriptions considered but not ordered:: None Medication administrations:: Medication Administration History Discontinued Medications Morphine Sulfate (Morphine Sulf Inj 4 Mg/Ml Vial) 4 mg IM X1 ONE Stop: 11/29/24 21:52 As above Consultations Consultation(s) initiated? (list below): No Diagnosis Differential diagnosis abdominal pain: calculus of kidney, constipation, diverticulitis and other (Dysuria., UTI.) Most likely diagnosis given after review of the tests above:: Chronic abdominal pain unclear etiology Admission Indicated Admission indicated?: not indicated Admission Request Was there a request for admission?: No Disposition Plan Disposition Plan: Discharge Discharge Attestation Discharge Attestation: The patient and all family members were given an opportunity to ask questions and understood the discharge instructions. Discharge instructions specifically effects, indications for sooner follow up or return to the emergency department, and the expected course of current diagnosis. Patient condition: Stable Discharge Plan Plan Patient Disposition: HOME (Self Care) Patient condition on transfer: Stable Prescriptions/Referrals Prescriptions/Med Rec: No Action ondansetron 4 mg tablet,disintegrating 4 mg PO Q8H PRN (Reason: Nausea And Vomiting) mirtazapine 30 mg tablet 60 mg PO HS rosuvastatin 10 mg tablet 10 mg PO HS Patient Comments: TAKE 1 TABLET BY MOUTH ONCE DAILY spironolactone 25 mg tablet 25 mg PO DAILY Patient Comments: TAKE 1 TABLET BY MOUTH ONCE DAILY levofloxacin 750 mg tablet 750 mg PO QDAY Qty: 5 0RF tamsulosin 0.4 mg capsule 0.4 mg PO QDAY Qty: 7 0RF promethazine-DM 6.25-15 mg/5 mL syrup 5 ml PO Q6H PRN (Reason: cough) Qty: 118 0RF albuterol sulfate [Ventolin HFA] 90 mcg/actuation HFA aerosol inhaler 2 inh inhalation Q4H PRN (Reason: shortness of breath or wheezing) Qty: 8.5 0RF ondansetron 4 mg tablet,disintegrating 4 mg PO Q8H Qty: 20 0RF nitrofurantoin monohyd/m-cryst [Macrobid] 100 mg capsule 100 mg PO BID Qty: 20 0RF Rx Instructions: must administer with a meal/food Eliquis 5 mg Tablet 5 mg PO BID losartan [Cozaar] 100 mg Tablet 100 mg PO DAILY metoprolol tartrate 25 mg Tablet 25 mg PO HS hydroxyzine HCl 10 mg Tablet 10 mg PO BID omeprazole 20 mg capsule,delayed release(DR/EC) 20 mg PO QDAY Qty: 30 0RF acetaminophen [Aphen] 325 mg tablet 650 mg PO QID PRN (Reason: pain) Qty: 60 0RF polyethylene glycol 3350 [Miralax] 17 gram powder in packet 17 g PO BID Qty: 30 1RF Rx Instructions: X 2 weeks and then once a day for 1 week. diltiazem HCl [DILT-XR] 120 mg capsule,ext.rel 24h degradable PO sertraline 100 mg tablet 100 mg PO QHSPRN Patient Comments: TAKE ONE TABLET BY MOUTH AT BEDTIME amitriptyline 100 mg tablet 100 mg PO .qhs Patient Comments: TAKE ONE TABLET BY MOUTH AT BEDTIME NEEDED conjugated estrogens 0.625 mg/gram cream 0.1 mg topical QDAY Qty: 30 0RF acetaminophen [Tylenol] 325 mg tablet 650 mg PO QID PRN (Reason: pain) Qty: 20 0RF ondansetron 4 mg tablet,disintegrating 4 mg PO Q8H PRN (Reason: nausea and vomiting) Qty: 20 0RF morphine 30 mg tablet extended release 30 mg PO Q12H MDD 2 tab Qty: 10 0RF Referrals: No Primary/Family,Physician [Primary Care Provider] - In 1 week Problem List Clinical Impression: Chronic pain Patient/Caregiver Discharge Instructions Education Materials: ED Chronic Pain Additional Instructions: Return to the emergency department for any worsening symptoms, or any other concerns. Please follow-up with your family practice doc so that you can be referred to urology, if needed. Today you do not have urinary tract infection. You do not have kidney stone. I do not want to treat you with more antibiotics since you have had to be courses of antibiotics already. We will send a urine culture and if it is positive we will call you. Otherwise return to emergency department if you are having any worsening symptoms, or any other concerns. Print Language: Polish Stand Alone Forms: [employer] Award Info., Patient Portal Info Letter
[2024-11-29 22:08] VITALS: BP 141/78; PULSE 90; RESP 18; TEMP 36.9; O2SAT 99
[2024-11-29] MEDS: MORPHINE SULF INJ 4 MG/ML VIAL IM (22:49)
== END 2024-11-29 22:56 | disposition home or self-care (01) ==
PROVIDERS: Physician Assistant; Emergency Provider Emergency Medicine
DX: G89.29 Other chronic pain (principal); I10 Essential (primary) hypertension; I48.91 Unspecified atrial fibrillation; M54.9 Dorsalgia, unspecified; R30.0 Dysuria
CPT/HCPCS: 36415; 74176; 80053; 81001; 83690; 85025; 87086; 96372; 99283; J2270

== ENCOUNTER 2024-12-15 15:05 | Emergency (ER) | payer MEDICAID, SELFPAY ==
--- NOTE | 2024-12-15 15:11 | EKG_ITS ---
[facility] Test Date: 2024-12-15 Pat Name: ESTEBAN MCCORMACK Department: Room: - Gender: Female Dermatology Physician: : [id number] Requested By: Dinh Phelps Order Number: [id number] Reading MD: Dinh Phelps Measurements Intervals [place] Rate: 89 P: 78 [place]: 201 QRS: -18 QRSD: 102 T: 79 QT: 368 QTc: 450 Interpretive Statements SINUS RHYTHM WITH FREQUENT SUPRAVENTRICULAR PREMATURE COMPLEXES NONSPECIFIC T-WAVE ABNORMALITY ABNORMAL RHYTHM ECG Compared to ECG 07/26/2024 15:51:16 T-wave abnormality now present /store/S0/[id number].pdf
[2024-12-15 15:15] VITALS: BP 143/85; PULSE 91; RESP 20; TEMP 36.8; O2SAT 95
--- NOTE | 2024-12-15 15:28 | XR_ITS ---
Exam: Chest 1 view, AP Date and time of exam: 12/15/2024, 3:47 p.m. INDICATION: Chest pain COMPARISON: 11/12/2024. Findings: Stable chronic interstitial changes. Normal heart size. No mediastinal adenopathy. No acute fracture No pulmonary edema or pneumonia. Stable right port with the distal tip appropriately positioned at the cavoatrial junction. Impression: No active disease.
--- NOTE | 2024-12-15 15:30 | PD.EDRME ---
Rapid Medical Screening Exam E Arrival date/time: 12/15/24 15:05 This is a 64-year-old female that comes into the emergency room with complaints of back pain, dysuria, oliguria urinary frequency and urgency. Patient is also complaining of palpitations. Patient does have a history of A-fib and she said that sometimes she does she is having palpitations. Patient denies chest pain shortness of breath. I have greeted and performed a focused initial assessment of this patient. Initial appropriate labs ordered at this time. A comprehensive ED assessment and evaluation of the patient and analysis of all test and completion of medical decision making process will be conducted by additional ED provider. Chief Complaint: Back Pain/Injury Time Seen by Provider: 12/15/24 15:12 Vital signs: Vital Signs Temperature 98.2 F 12/15/24 15:15 Pulse Rate 91 12/15/24 15:15 Respiratory Rate 20 12/15/24 15:15 Blood Pressure 143/85 H 12/15/24 15:15 Pulse Oximetry (%) 95 12/15/24 15:15 Oxygen Delivery Method Room Air 12/15/24 15:15 Exam: Alert and oriented, breathing even and unlabored, diffuse lower back pain Clinical Impression: Dysuria, palpitations
[2024-12-15 16:00] LABS: Collection Type, Urine Voided
[2024-12-15 16:02] LABS: Basophils # (Auto) 0.1 Thou/mm3 (0.0-0.2); Basophils % (Auto) 1 % (0-2.5); Eosinophils # (Auto) 0.2 Thou/mm3 (0.0-0.5); Eosinophils % (Auto) 2 % (0-10); Hematocrit 39.8 % (36.0-46.0); Hemoglobin 13.2 g/dL (12.0-16.0); Immature Granulocytes Auto 0.04 Thou/mm3 (0.00-0.00); Lymphocytes # (Auto) 2.8 Thou/mm3 (1.0-4.8); Lymphocytes % (Auto) 27 % (10-50); Mean Corpuscular HGB Conc 33.2 g/dl (31.0-37.0); Mean Corpuscular Hemoglobin 30.5 pg (25.0-35.0); Mean Corpuscular Volume 92 fL (80-100); Monocytes # (Auto) 0.6 Thou/mm3 (0.0-0.8); Monocytes % (Auto) 6 % (0-12); Neutrophils # (Auto) 6.8 Thou/mm3 (1.8-7.7); Neutrophils % (Auto) 65 % (37-80); Nucleated Red Blood Cell # 0.00 Thou/mm3 (0.00-0.00); Nucleated Red Blood Cell % 0 /100 WBC (0); Platelet Count 396 Thou/mm3 (140-440); RDW Standard Deviation 49.9 fL (36.4-46.3); Red Blood Count 4.33 Miln/mm3 (4.00-5.20); White Blood Count 10.5 Thou/mm3 (3.6-11.0)
[2024-12-15 16:25] LABS: Bacteria,Urine 3+; Bilirubin,Urine Negative (Negative); Blood,Urine Trace (Negative); Clarity,Urine Turbid (Clear/Hazy); Color,Urine Yellow (Lt Yel-Yel); Culture Indicated,Urine Contaminated; Glucose, Urine Negative (Negative); Ketones,Urine Negative (Negative); Leukocyte Esterase,Urine Positive (Negative); Nitrite,Urine Negative (Negative); PH,Urine 6.0 (5.0-7.0); Protein,Urine Trace (Neg - Trace); RBC,Urine 7 /hpf (0-3); Specific Gravity,Urine 1.018 (1.001-1.035); Squamous Epithelial Cell,Urine 20 /hpf (0-5); Urobilinogen,Urine Negative mg/dL (0.0-1.0); WBC,Urine 9 /hpf (0-5)
[2024-12-15 16:29] LABS: Alanine Aminotransferase 12 U/L (10-49); Albumin, Serum 4.9 gm/dL (3.4-4.8); Albumin/Globulin Ratio 2.1 (1.2-2.2); Alkaline Phosphatase 117 U/L (46-116); Anion Gap 5 (7-16); Aspartate Amino Transferase 20 U/L (0-34); BUN/Creatinine Ratio 10 Ratio (12-20); Bilirubin,Total 0.4 mg/dL (0.3-1.2); Blood Urea Nitrogen 11 mg/dL (9-23); Calcium 10.1 mg/dL (8.3-10.6); Calcium (Corrected) 10.1 mg/dL (8.5-10.1); Carbon Dioxide 24.9 mMol/L (20.0-31.0); Chloride 108 mMol/L (98-107); Creatinine (Component) 1.1 mg/dL (0.6-1.3); Free T4 (Free Thyroxine) 1.28 ng/dL (0.89-1.76); Globulin 2.3 gm/dL (2.3-3.5); Glucose 103 mg/dL (74-106); Lipase 33 U/L (12-53); Osmolality,Calculated 275 (275-295); Potassium 4.1 mMol/L (3.4-5.1); Sodium 138 mMol/L (136-145); Total Protein 7.2 gm/dL (5.7-8.2); Troponin I < 0.020 ng/mL (0.0-0.045); eGFR 56 See Note
[2024-12-15 17:14] LABS: B-Type Natriuretic Peptide < 20 pg/mL (0-100)
--- NOTE | 2024-12-15 17:57 | PD.EDBACK ---
ED Back Injury Pain RME/HPI General Chief Complaint: Back Pain/Injury Stated Complaint: Lower back pain and Afib Time Seen by Provider: 12/15/24 15:12 Arrival date/time: 12/15/24 15:05 This is a 64-year-old female that comes into the emergency room with complaints of back pain, dysuria, oliguria urinary frequency and urgency. Patient states she was recently treated for UTI couple weeks ago. Patient states she has an appointment with the urologist coming up in December. Patient is also complaining of palpitations earlier in the week. Patient does have a history of A-fib and she said that sometimes she does she is having palpitations. Patient denies chest pain shortness of breath. RME / HPI RME / HPI Narrative: 12/15/24 15:05 This is a 64-year-old female that comes into the emergency room with complaints of back pain, dysuria, oliguria urinary frequency and urgency. Patient is also complaining of palpitations. Patient does have a history of A-fib and she said that sometimes she does she is having palpitations. Patient denies chest pain shortness of breath. I have greeted and performed a focused initial assessment of this patient. Initial appropriate labs ordered at this time. A comprehensive ED assessment and evaluation of the patient and analysis of all test and completion of medical decision making process will be conducted by additional ED provider. Exam: Alert and oriented, breathing even and unlabored, diffuse lower back pain Impression: Dysuria, palpitations Related Data Home Medications ?Medication ?Instructions ?Recorded ?Confirmed apixaban 5 mg tablet (Eliquis) 5 mg PO BID 06/09/23 05/27/24 hydroxyzine HCl 10 mg tablet 10 mg PO BID 06/09/23 08/20/23 losartan 100 mg tablet (Cozaar) 100 mg PO DAILY 06/09/23 05/27/24 metoprolol tartrate 25 mg tablet 25 mg PO HS 06/09/23 08/20/23 mirtazapine 30 mg tablet 60 mg PO HS 08/20/23 08/20/23 ondansetron 4 mg disintegrating 4 mg PO Q8H PRN Nausea And Vomiting 08/20/23 08/20/23 tablet rosuvastatin 10 mg tablet 10 mg PO HS 08/20/23 08/20/23 spironolactone 25 mg tablet 25 mg PO DAILY 08/20/23 08/20/23 amitriptyline 100 mg tablet 100 mg PO .qhs 05/27/24 05/27/24 diltiazem HCl 120 mg mg PO 05/27/24 capsule,extended release 24 hr, controlled (DILT-XR) sertraline 100 mg tablet 100 mg PO QHSPRN 05/27/24 05/27/24 Held on 05/29/24. Instructions: Resume on 06/16/24. till antibiotic course is done and sees a PCP Previous Rx's ?Medication ?Instructions ?Recorded omeprazole 20 mg capsule,delayed 20 mg PO QDAY #30 caps 08/14/23 release levofloxacin 750 mg tablet 750 mg PO QDAY pyelonephritis #5 08/21/23 tabs tamsulosin 0.4 mg capsule 0.4 mg PO QDAY dysuria, hesitancy 08/21/23 #7 caps acetaminophen 325 mg tablet (Aphen) 650 mg (2 x 325 mg) PO QID PRN 08/25/23 pain #60 tabs polyethylene glycol 3350 17 gram 17 g PO BID #30 ea 09/15/23 oral powder packet (Miralax) conjugated estrogens 0.625 mg/gram 0.1 mg topical QDAY #30 grams 05/29/24 vaginal cream acetaminophen 325 mg tablet 650 mg (2 x 325 mg) PO QID PRN 08/11/24 (Tylenol) pain #20 tabs ondansetron 4 mg disintegrating 4 mg PO Q8H PRN nausea and 08/11/24 tablet vomiting #20 tabs morphine 30 mg tablet,extended 30 mg PO Q12H #10 tabs 10/05/24 release albuterol sulfate 90 mcg/actuation 2 inh inhalation Q4H PRN shortness 11/12/24 aerosol inhaler (Ventolin HFA) of breath or wheezing #8.5 grams nitrofurantoin 100 mg PO BID #20 caps 11/12/24 monohydrate/macrocrystals 100 mg capsule (Macrobid) ondansetron 4 mg disintegrating 4 mg PO Q8H #20 tabs 11/12/24 tablet promethazine-DM 6.25 mg-15 mg/5 mL 5 ml PO Q6H PRN cough #118 mL 11/12/24 oral syrup Allergies Allergy/AdvReac Type Severity Reaction Status Date / Time amoxicillin Allergy Severe ITCHY Verified 12/15/24 15:09 ceftriaxone (From Rocephin) Allergy Severe Swelling Verified 12/15/24 15:09 of Lip/Tongue/Throat cephalexin Allergy Severe Anaphylaxis Verified 12/15/24 15:09 dicyclomine (From Bentyl) Allergy Severe Rash Verified 12/15/24 15:09 hydrocodone Allergy Severe GI UPSET Verified 12/15/24 15:09 ibuprofen Allergy Severe Abdominal Verified 12/15/24 15:09 Pain ketorolac (From Toradol) Allergy Severe Hives Verified 12/15/24 15:09 meropenem Allergy Severe Anaphylaxis Verified 12/15/24 15:09 moxifloxacin Allergy Severe Hives Verified 12/15/24 15:09 Penicillins Allergy Severe HIVES,SWELL Verified 12/15/24 15:09 ING Sulfa (Sulfonamide Allergy Severe HIVES,SWELL Verified 12/15/24 15:09 Antibiotics) ING tramadol Allergy Severe Shakiness Verified 12/15/24 15:09 Review of Systems Review of Systems Systems Reviewed: All systems reviewed, normal except as documented Past Medical History Past Medical History NEUROLOGIC: Positive Transient Ischemic Attacks (TIA); Negative Dementia, Alzheimer's Disease, Seizures, Amyotrophic Lateral Sclerosis (ALS/Lina Gehrig's) or Head Trauma CARDIAC: Positive Cardiac Disorders, Atrial Fibrillation, Hypercholesterolemia and Hypertension; Negative Myocardial Infarction, Cardiac Arrhythmia, Angina, Heart Murmur, Coronary Artery Disease, Atherosclerotic Heart Disease, Peripheral Vascular Disease, Aneurysm, Congestive Heart Failure, Congenital Heart Disease, Valvular Heart Disease, Rheumatic Fever, Edema, Pericarditis, Cellulitis, Deep Vein Thrombosis, Hypotension or Varicose Veins RESPIRATORY: Positive Chronic Obstructive Pulmonary Disease (COPD); Negative Asthma GASTROINTESTINAL: Positive Gastrointestinal Disorders, Diverticulitis, Diverticulosis and Gastroesophageal Reflux Disease; Negative Hepatitis, Cirrhosis, Pancreatitis, Celiac Disease, Gall Bladder Disease, Gastrointestinal Bleed, Esophageal Varices, Loera's Esophagus, Colitis, Ulcerative Colitis, Ulcer, Colorectal Cancer, Irritable Bowel, Crohn's Disease, Obstructive Bowel, Hiatal Hernia, Hemorrhoids or Obesity GENITOURINARY: Negative Genitourinary Disorders, Renal Disease or Kidney Stones REPRODUCTIVE: Positive Breast Cancer; Negative Pelvic Inflammatory Disease MUSCULOSKELETAL: Positive Arthritis, Rheumatoid Arthritis, Osteoporosis and Degenerative Disk Disease; Negative Gout, Scoliosis, Fractures, Degenerative Joint Disease, Osteomyelitis or Poliovirus ENT: Negative Cataracts, Glaucoma, Blind, Retinal Detachment, Macular Degeneration, Ear Infection, Deafness, Head Trauma or Eye Prosthesis ENDOCRINE: Negative Endocrine Disorders, Diabetes Mellitus Type 1, Diabetes Mellitus Type 2, Hypoglycemia, Santino's Disease, Hyperthyroidism, Hypothyroidism, Parathyroid Disease, Pituitary Disease, Systemic Lupus Erythematosus, Syndrome of Inappropriate Antidiuretic Hormone (SIADH), Adrenal Disease or Graves' Disease HEMATOLOGIC: Negative Anemia or Sickle Cell Disease PSYCHO/SOCIAL: Positive Anxiety and Post Traumatic Stress Disorder; Negative Psychiatric Problems or Bipolar Disorder OTHER HISTORY: Positive Hospitalization, Chemotherapy, Chicken Pox, Measles, Rubella ([place] Measles), Cancer and Breast Cancer; Negative Autoimmune Disease, Shingles, Falls, Blood Transfusions, Anesthesia Reactions, Organ Transplant, Radiation Therapy, MRSA, VRSA, Vancomycin-Resistant Enterococci, Human Immunodeficiency Virus (HIV), Mumps, Pertussis, Clostridium Difficile, Cervical Cancer, Colorectal Cancer, Lung Cancer or Ovarian Cancer Family History FAMILY HISTORY: Positive Family Psychiatric Problems and Family Cardiac Disorders; Negative Family Respiratory Disorders, Family Gastrointestinal Problems, Family Cancer, Family Surgery or Family Anesthesia Reaction Surgical History SURGICAL: Positive Mastectomy and Hysterectomy; Negative Cardiac Surgery, Pacemaker, Endocrine Surgery, Ear Surgery, Abdominal Surgery, Nephrectomy, Joint Replacement, Neurologic Surgery, Brain Shunt, Section or Organ Transplant Social History SMOKING STATUS: Current every day smoker SECOND HAND EXPOSURE: No SUBSTANCE USE: does not use ED Exam Narrative Physical exam: VITAL SIGNS: Reviewed. GENERAL APPEARANCE: Alert and interactive, follows commands, no acute distress, HEAD AND FACE: Non-traumatic. ENT: PERRL, conjuctiva pink and clear, eyelid no trauma, Mucous membrane moist. NECK: Supple, nontender, no nuchal rigidity. CHEST: No tenderness, no crepitus, no paradoxical movement, no retractions. LUNGS: Breathing even and unlabored HEART: Regular rate, regular rhythm ABDOMEN: Soft, nondistended, no guarding, nontender NEUROLOGICAL: Gross motor function intact sensory function intact, Appropriate for age. MUSCULOSKELETAL: low back nontender, full range of motion. EXTREMITIES: No redness no swelling no skin breakdown on bilateral foot and leg. Distal neurovascular status intact bilateral foot SKIN: Color pink, dry, no rash, no lacerations, no abrasions, no contusions. Course Quality Measures none Orders Category Date Time Status Consult Helper Metal Hanging PRN Care 12/15/24 17:58 Completed EKG (ED ONLY) *Do not use* NOW Care 12/15/24 15:11 Completed EKG (ED Only) Stat Exams 12/15/24 15:11 Draft XR chest 1V Stat Exams 12/15/24 15:28 Completed BNP [B-Type Natriuretic Peptide] Stat Lab 12/15/24 15:41 Completed CBC Stat Lab 12/15/24 15:41 Completed Comprehensive Metabolic Panel Stat Lab 12/15/24 15:41 Completed Free T4 (Free Thyroxine) Stat Lab 12/15/24 15:41 Completed Lipase Stat Lab 12/15/24 15:41 Completed Troponin I Stat Lab 12/15/24 15:41 Completed Urinalysis, C/S if Indicated Stat Lab 12/15/24 15:34 Completed Urine Culture Stat Lab 12/15/24 05:34 Completed Metoclopramide Inj [Reglan Inj] Med 12/15/24 17:56 Discontinued 10 mg IM X1 ONE Morphine* Inj Med 12/15/24 17:56 Discontinued 4 mg IM X1 ONE Nitrofurantoin Macro [Macrobid] Med 12/15/24 17:56 Discontinued 100 mg PO X1 ONE Vital Signs Vital signs: Vital Signs Temperature 98.2 F 12/15/24 15:15 Pulse Rate 91 12/15/24 15:15 Respiratory Rate 20 12/15/24 15:15 Blood Pressure 143/85 H 12/15/24 15:15 Pulse Oximetry (%) 95 12/15/24 15:15 Oxygen Delivery Method Room Air 12/15/24 15:15 PROCEDURES: EKG Interpretation #1: Date of EK12/15/24 Time of EK:15 Rate: 89 Interpretation: Interpreted by me (Sinus rhythm) EKG Impression: No ectopy, Normal QRS and Normal intervals Back Pain / Injury MDM Narrative MDM Narrative:: chest x ray shows: Findings: Stable chronic interstitial changes. Normal heart size. No mediastinal adenopathy. No acute fracture No pulmonary edema or pneumonia. Stable right port with the distal tip appropriately positioned at the cavoatrial junction. Impression: No active disease. Reviewed labs CBC unremarkable BMP unremarkable LFTs unremarkable BNP unremarkable troponin less than 0.02 lipase within normal limits free T41.28 Urinalysis shows RBCs white blood cells bacteria leukocyte esterase positive. Chest x-ray unremarkable. Patient states she has chronic UTIs. Patient is about to see a urologist. Patient not complaining of chest pain shortness of breath. Patient not having palpitations. Patient feels comfortable going home at this time. Patient states that they usually give her morphine for pain because she is allergic to everything. Will give patient Macrobid and send patient home. Will send a urine culture. Patient feels comfortable plan of care. Dragon dictation: Although this document has been carefully reviewed, there may still be some phonetic and other typographical errors. These errors are purely grammatical due to imperfections in the software program and should not be construed in any way to compromise the substance of the patient's medical care during this visit. Patient data External records reviewed:: [facility] previous records Clinical information provided by:: patient Social determinants that could affect healthcare access:: none Patient has the following chronic illnesses:: none How is presenting disease/condition affected by chronic disease/condition?: no chronic disease Evaluation data The following diagnostics were reviewed and interpreted by me:: lab results, radiology exam(s) and EKG tracing(s) Lab and/or radiology exams considered but not ordered:: none Interpretation Summary: see note Medications / Prescriptions Medications or Prescriptions considered but not ordered:: none Medication administrations:: Medication Administration History Discontinued Medications Metoclopramide HCl (Metoclopramide Inj 5 Mg/Ml Vial 2 Ml) 10 mg IM X1 ONE; Protocol Stop: 12/15/24 17:57 Last Admin: 12/15/24 18:15 Dose: 10 mg Documented By: ALIYA Morphine Sulfate (Morphine Sulf Inj 4 Mg/Ml Vial) 4 mg IM X1 ONE Stop: 12/15/24 17:57 Last Admin: 12/15/24 18:15 Dose: 4 mg Documented By: ALIYA Nitrofurantoin Macrocrystals (Nitrofurantoin Macro 100 Mg Capsule) 100 mg PO X1 ONE Stop: 12/15/24 17:57 Last Admin: 12/15/24 18:15 Dose: 100 mg Documented By: ALIYA see mar Consultations Consultation(s) initiated? (list below): No Diagnosis Most likely diagnosis given after review of the tests above:: uti Admission Indicated Admission indicated?: not indicated Admission Request Was there a request for admission?: No Disposition Plan Disposition Plan: Discharge Discharge Attestation Discharge Attestation: The patient and all family members were given an opportunity to ask questions and understood the discharge instructions. Discharge instructions specifically effects, indications for sooner follow up or return to the emergency department, and the expected course of current diagnosis. Patient condition: Stable Discharge Plan Plan Patient Disposition: HOME (Self Care) Patient condition on transfer: Stable Prescriptions/Referrals Prescriptions/Med Rec: No Action ondansetron 4 mg tablet,disintegrating 4 mg PO Q8H PRN (Reason: Nausea And Vomiting) mirtazapine 30 mg tablet 60 mg PO HS rosuvastatin 10 mg tablet 10 mg PO HS Patient Comments: TAKE 1 TABLET BY MOUTH ONCE DAILY spironolactone 25 mg tablet 25 mg PO DAILY Patient Comments: TAKE 1 TABLET BY MOUTH ONCE DAILY levofloxacin 750 mg tablet 750 mg PO QDAY Qty: 5 0RF tamsulosin 0.4 mg capsule 0.4 mg PO QDAY Qty: 7 0RF promethazine-DM 6.25-15 mg/5 mL syrup 5 ml PO Q6H PRN (Reason: cough) Qty: 118 0RF albuterol sulfate [Ventolin HFA] 90 mcg/actuation HFA aerosol inhaler 2 inh inhalation Q4H PRN (Reason: shortness of breath or wheezing) Qty: 8.5 0RF ondansetron 4 mg tablet,disintegrating 4 mg PO Q8H Qty: 20 0RF nitrofurantoin monohyd/m-cryst [Macrobid] 100 mg capsule 100 mg PO BID Qty: 20 0RF Rx Instructions: must administer with a meal/food Eliquis 5 mg Tablet 5 mg PO BID losartan [Cozaar] 100 mg Tablet 100 mg PO DAILY metoprolol tartrate 25 mg Tablet 25 mg PO HS hydroxyzine HCl 10 mg Tablet 10 mg PO BID omeprazole 20 mg capsule,delayed release(DR/EC) 20 mg PO QDAY Qty: 30 0RF acetaminophen [Aphen] 325 mg tablet 650 mg PO QID PRN (Reason: pain) Qty: 60 0RF polyethylene glycol 3350 [Miralax] 17 gram powder in packet 17 g PO BID Qty: 30 1RF Rx Instructions: X 2 weeks and then once a day for 1 week. diltiazem HCl [DILT-XR] 120 mg capsule,ext.rel 24h degradable PO sertraline 100 mg tablet 100 mg PO QHSPRN Patient Comments: TAKE ONE TABLET BY MOUTH AT BEDTIME amitriptyline 100 mg tablet 100 mg PO .qhs Patient Comments: TAKE ONE TABLET BY MOUTH AT BEDTIME NEEDED conjugated estrogens 0.625 mg/gram cream 0.1 mg topical QDAY Qty: 30 0RF acetaminophen [Tylenol] 325 mg tablet 650 mg PO QID PRN (Reason: pain) Qty: 20 0RF ondansetron 4 mg tablet,disintegrating 4 mg PO Q8H PRN (Reason: nausea and vomiting) Qty: 20 0RF morphine 30 mg tablet extended release 30 mg PO Q12H MDD 2 tab Qty: 10 0RF Referrals: No Primary/Family,Physician [Primary Care Provider] - In 1 week Problem List Clinical Impression: UTI (urinary tract infection), Back pain Patient/Caregiver Discharge Instructions Discharge Activity: activity as tolerated Education Materials: ED Back Pain (Acute or Chronic), ED CYSTITIS Female Adult Additional Instructions: Follow up with primary provider in 1-2 days. Come back to ED if symptoms change or worsen Print Language: Syriac Stand Alone Forms: [employer]i Award Info., Patient Portal Info Letter PA/EXECUTIVE ACCOUNT MANAGER Supervising Physician PA/EXECUTIVE ACCOUNT MANAGER Supervising Physician: jessica
[2024-12-15] MEDS: MORPHINE SULF INJ 4 MG/ML VIAL IM (18:15)
[2024-12-15] MEDS: METOCLOPRAMIDE INJ 5 MG/ML VIAL 2 ML 10 MG IM (18:15)
[2024-12-15] MEDS: NITROFURANTOIN MACRO 100 MG CAPSULE PO (18:15)
--- NOTE | 2024-12-15 20:15 | PC.NURSE ---
transportation was arranged via [facility] at this time. Atm Manager Zahira, transportation number: [id number]. pt aware of arrangement and is currently waiting for transportation outside of ED lobby.
== END 2024-12-16 01:00 | disposition home or self-care (01) ==
PROVIDERS: Emergency Provider Nurse Practitioner Family
DX: N39.0 Urinary tract infection, site not specified (principal)
CPT/HCPCS: 36415; 71045; 80053; 81001; 83690; 83880; 84439; 84484; 85025; 87086; 93005; 96372; 99283; J2270; J2765; A9270

== ENCOUNTER 2025-01-02 16:07 | Emergency (ER) | payer MEDICAID, SELFPAY ==
[2025-01-02 16:12] VITALS: BP 167/87; PULSE 105; RESP 18; TEMP 37.1; O2SAT 100
--- NOTE | 2025-01-02 16:14 | PD.EDNEURO ---
Neuro Symptoms Deficit-RME/HPI General Chief Complaint: Neuro Symptoms/Deficit Stated Complaint: VARELA & L ARM NUMBNESS X30 MIN Time Seen by Provider: 01/02/25 16:15 Arrival date/time: 01/02/25 16:07 Limitations: no limitations RME / HPI RME / HPI Narrative: 64 year old female with history of TIAs, hypertension, atrial fibrillation on Eliquis, hyperlipidemia, GERD, kidney stones, breast cancer s/p partial mastectomy presents to the ED for evaluation of headache, dizziness, and left arm numbness with weakness beginning just 30 minutes prior to arrival. Patient states she was visiting a friend and was at her usual state of health until 30 minutes ago when she suddenly developed a 10/10 headache. Described as it feels my head is going to explode and pounding in sensation. Additionally complains of chest pain that is worse with taking a deep breath, also beginning today. Patient states she took four 81mg Aspirin with no change in symptoms. Denies any fevers, chills, cough, shortness of breath, abdominal pain, urinary symptoms, or changes in bowel habits. Denies any change in vision, gait, or speech. Patient reports her headache and left arm weakness today is similar to prior TIAs. Related Data Home Medications ?Medication ?Instructions ?Recorded ?Confirmed apixaban 5 mg tablet (Eliquis) 5 mg PO BID 06/09/23 05/27/24 hydroxyzine HCl 10 mg tablet 10 mg PO BID 06/09/23 08/20/23 losartan 100 mg tablet (Cozaar) 100 mg PO DAILY 06/09/23 05/27/24 metoprolol tartrate 25 mg tablet 25 mg PO HS 06/09/23 08/20/23 mirtazapine 30 mg tablet 60 mg PO HS 08/20/23 08/20/23 ondansetron 4 mg disintegrating 4 mg PO Q8H PRN Nausea And Vomiting 08/20/23 08/20/23 tablet rosuvastatin 10 mg tablet 10 mg PO HS 08/20/23 08/20/23 spironolactone 25 mg tablet 25 mg PO DAILY 08/20/23 08/20/23 amitriptyline 100 mg tablet 100 mg PO .qhs 05/27/24 05/27/24 diltiazem HCl 120 mg mg PO 05/27/24 capsule,extended release 24 hr, controlled (DILT-XR) sertraline 100 mg tablet 100 mg PO QHSPRN 05/27/24 05/27/24 Held on 05/29/24. Instructions: Resume on 06/16/24. till antibiotic course is done and sees a PCP Previous Rx's ?Medication ?Instructions ?Recorded omeprazole 20 mg capsule,delayed 20 mg PO QDAY #30 caps 08/14/23 release levofloxacin 750 mg tablet 750 mg PO QDAY pyelonephritis #5 08/21/23 tabs tamsulosin 0.4 mg capsule 0.4 mg PO QDAY dysuria, hesitancy 08/21/23 #7 caps acetaminophen 325 mg tablet (Aphen) 650 mg (2 x 325 mg) PO QID PRN 08/25/23 pain #60 tabs polyethylene glycol 3350 17 gram 17 g PO BID #30 ea 09/15/23 oral powder packet (Miralax) conjugated estrogens 0.625 mg/gram 0.1 mg topical QDAY #30 grams 05/29/24 vaginal cream acetaminophen 325 mg tablet 650 mg (2 x 325 mg) PO QID PRN 08/11/24 (Tylenol) pain #20 tabs ondansetron 4 mg disintegrating 4 mg PO Q8H PRN nausea and 08/11/24 tablet vomiting #20 tabs morphine 30 mg tablet,extended 30 mg PO Q12H #10 tabs 10/05/24 release albuterol sulfate 90 mcg/actuation 2 inh inhalation Q4H PRN shortness 11/12/24 aerosol inhaler (Ventolin HFA) of breath or wheezing #8.5 grams nitrofurantoin 100 mg PO BID #20 caps 11/12/24 monohydrate/macrocrystals 100 mg capsule (Macrobid) ondansetron 4 mg disintegrating 4 mg PO Q8H #20 tabs 11/12/24 tablet promethazine-DM 6.25 mg-15 mg/5 mL 5 ml PO Q6H PRN cough #118 mL 11/12/24 oral syrup Allergies Allergy/AdvReac Type Severity Reaction Status Date / Time amoxicillin Allergy Severe ITCHY Verified 12/15/24 15:09 ceftriaxone (From Rocephin) Allergy Severe Swelling Verified 12/15/24 15:09 of Lip/Tongue/Throat cephalexin Allergy Severe Anaphylaxis Verified 12/15/24 15:09 dicyclomine (From Bentyl) Allergy Severe Rash Verified 12/15/24 15:09 hydrocodone Allergy Severe GI UPSET Verified 12/15/24 15:09 ibuprofen Allergy Severe Abdominal Verified 12/15/24 15:09 Pain ketorolac (From Toradol) Allergy Severe Hives Verified 12/15/24 15:09 meropenem Allergy Severe Anaphylaxis Verified 12/15/24 15:09 moxifloxacin Allergy Severe Hives Verified 12/15/24 15:09 Penicillins Allergy Severe HIVES,SWELL Verified 12/15/24 15:09 ING Sulfa (Sulfonamide Allergy Severe HIVES,SWELL Verified 12/15/24 15:09 Antibiotics) ING tramadol Allergy Severe Shakiness Verified 12/15/24 15:09 Review of Systems Review of Systems Systems Reviewed: All systems reviewed, normal except as documented Past Medical History Past Medical History NEUROLOGIC: Positive Transient Ischemic Attacks (TIA) CARDIAC: Positive Cardiac Disorders, Atrial Fibrillation, Hypercholesterolemia and Hypertension RESPIRATORY: Positive Chronic Obstructive Pulmonary Disease (COPD) GASTROINTESTINAL: Positive Gastrointestinal Disorders, Diverticulitis, Diverticulosis and Gastroesophageal Reflux Disease REPRODUCTIVE: Positive Breast Cancer MUSCULOSKELETAL: Positive Arthritis, Rheumatoid Arthritis, Osteoporosis and Degenerative Disk Disease PSYCHO/SOCIAL: Positive Anxiety and Post Traumatic Stress Disorder OTHER HISTORY: Positive Hospitalization, Chemotherapy, Chicken Pox, Measles, Rubella (Nepali Measles), Cancer and Breast Cancer Family History FAMILY HISTORY: Positive Family Psychiatric Problems and Family Cardiac Disorders Surgical History SURGICAL: Positive Mastectomy and Hysterectomy Social History SMOKING STATUS: Current every day smoker SECOND HAND EXPOSURE: No SUBSTANCE USE: does not use ED Exam General Limitations: Present no limitations General appearance: Present alert and in no apparent distress Head Head exam: Present atraumatic and normocephalic Eye Eye exam: Present normal appearance, PERRL and EOMI ENT ENT exam: Present normal exam, normal oropharynx and mucous membranes moist Neck Neck exam: Present normal inspection, full ROM and trachea midline Chest Chest inspection: Present normal inspection and symmetric chest wall rise Respiratory Respiratory exam: Present normal lung sounds bilaterally; Absent respiratory distress Cardiovascular Cardiovascular exam: Present regular rate, normal rhythm and normal heart sounds Abdominal Exam Abdominal exam: Present soft; Absent distention, tenderness or guarding Extremities Exam Extremities exam: Present other (2/5 left upper extremity strength, 5/5 strength in the right upper and bilateral lower extremities, sensation intact throughout) Neurological Exam Neurological exam: Present alert, oriented X3, CN II-XII intact and other (2/5 left upper extremity strength, 5/5 strength in the right upper and bilateral lower extremities, no cranial nerve abnormality , sensation intact throughout) Psychiatric Psychiatric exam: Present normal affect and normal mood Skin Skin exam: Present warm, dry, intact and normal color Course Quality Measures Suspected type of Stroke: Acute Ischemic (large vessel occlusion ) Last known well (date): 01/02/25 Last known well (time): 15:45 Tenecteplase given: Reason(s) TPA not given: Use of NOAC (eliquis, xarelto, or pradaxa) not given stroke Orders Category Date Time Status Bedside Blood Glucose NOW Care 01/02/25 16:15 Completed Single Stayer Operator NOW Care 01/02/25 16:15 Completed Continuous Pulse Oximetry NOW Care 01/02/25 16:15 Completed EKG (ED ONLY) *Do not use* NOW Care 01/02/25 16:15 Completed In and Out Catheter NEEDED Care 01/02/25 16:15 Completed Insert IV NOW Care 01/02/25 16:15 Completed NIH Stroke Scale now Care 01/02/25 16:15 Completed NPO NOW Care 01/02/25 16:15 Completed Neuro Check Q1HR Care 01/02/25 16:15 Completed Nurse Swallow Screen x1 Care 01/02/25 16:15 Completed Consult to Neurology / Tele-Neurology Stat Cons 01/02/25 16:15 Active Referral - Public Information Coordinator Stat Cons 01/02/25 17:25 Active Transfer to another facility [Transfer/Discharge] Stat Discharge 01/02/25 19:[address] angio stroke protocol Stat Exams 01/02/25 16:[address] stroke protocol Stat Exams 01/02/25 16:15 Completed EKG (ED Only) Stat Exams 01/02/25 16:15 Draft XR chest 1V portable Stat Exams 01/02/25 16:15 Completed CBC Stat Lab 01/02/25 16:28 Completed Comprehensive Metabolic Panel Stat Lab 01/02/25 16:28 Completed Drug Screen,Urine Stat Lab 01/02/25 16:25 Completed Magnesium Stat Lab 01/02/25 16:28 Completed Partial Thromboplastin Time Stat Lab 01/02/25 16:28 Completed Prothrombin Time with INR Stat Lab 01/02/25 16:28 Completed Troponin I Stat Lab 01/02/25 16:28 Completed Urinalysis, C/S if Indicated Stat Lab 01/02/25 16:25 Completed Acetaminophen Tab [Tylenol Tab] Med 01/02/25 18:27 Discontinued 650 mg PO X1 ONE Labetalol* IV [Trandate* IV] Med 01/02/25 20:02 Discontinued 10 mg IVP X1 ONE Morphine* Inj Med 01/02/25 19:13 Discontinued 6 mg IV X1 ONE Ondansetron Inj [Zofran Inj] Med 01/02/25 19:13 Discontinued 4 mg IVP X1 ONE Oxygen Delivery NOW RT 01/02/25 16:15 Completed Vital Signs Vital signs: Vital Signs Temperature 98.7 F 01/02/25 16:12 Pulse Rate 105 H 01/02/25 16:12 Respiratory Rate 18 01/02/25 16:12 Blood Pressure 167/87 H 01/02/25 16:12 Pulse Oximetry (%) 100 01/02/25 16:12 Oxygen Delivery Method Room Air 01/02/25 16:12 Pulse ox is 100% on room air which is adequate. Neuro Symptoms / Deficit MDM Narrative MDM Narrative:: Pushpa Fontana am scribing for and in the presence of Dr. Blanco. Patient is a 64-year-old female is in the emergency primary concerns for acute onset left-sided weakness. Last known well 3:40p. patient was activated as a stroke alert. Taken to CT scan hemodynamically stable. Labs CT brain CT angio. I spoke with teleneurologist Dr. Graves. States during his examination there was weakness to the left side. Advised giving Aspirin. I confirm with patient she is already took 325 aspirin prior to arrival. Not a TNK candidate due to use of Eliquis. States if the CTA is negative, patient can be admitted here for stroke work-up. 1722p: Received a call from our radiologist Dr. Snyder. States the basilar artery is not filling and has a large vessel occlusion. 1723p: I spoke with our transfer nurse, aware of plan to transfer for large vessel occlusion. 1732p: Teleneurologist Dr. Graves reports he has reviewed the CTA and there is a large vessel occlusion and recommends transfer for neuro IR. 1800p: Care signed out to Dr. Dowd pending transfer. Patient data External records reviewed:: [facility] previous records Clinical information provided by:: patient Social determinants that could affect healthcare access:: none Patient has the following chronic illnesses:: TIAs, hypertension, atrial fibrillation on Eliquis, hyperlipidemia, GERD, kidney stones, breast cancer s/p partial mastectomy How is presenting disease/condition affected by chronic disease/condition?: exacerbated by Evaluation data The following diagnostics were reviewed and interpreted by me:: lab results, radiology exam(s) and EKG tracing(s) Lab and/or radiology exams considered but not ordered:: None Interpretation Summary: Ordering Physician: Trang Blanco MD Date of Service: 01/02/25 Procedure(s): XR chest 1V portable Accession Number(s): [id number] cc: Erasto Snyder MD; Trang Blanco MD~ EXAMINATION: AP chest single view TECHNIQUE: AP portable upright chest single view Date and time: January 02, 2025, 1654 hours, comparison December 15, 2024 INDICATIONS: Stroke alert today. FINDINGS: Normal heart size No aspiration pneumonia Mild vascular congestion Right internal jugular Port-A-Cath tip satisfactory position IMPRESSION: No aspiration pneumonia Dictated By: Erasto Snyder MD Signed By: <Electronically signed by Erasto Snyder MD in OV> 01/02/25 1715 Ordering Physician: Trang Blanco MD Date of Service: 01/02/25 Procedure(s): CT stroke protocol Accession Number(s): [id number] cc: Erasto Snyder MD; Trang Blanco MD~ Examination: CT brain head without contrast. 2-D sagittal coronal reconstructions Date and time of exam: January 02, 2025, 1621 hours, comparison September 22, 2024 CTDI: vol (mGy): 46.4 DLP: (mGycm): 867 Technique: Multiple CT axial sections of the brain have been obtained, 5 mm slice thickness. Contrast has not been administered. 2-D sagittal, coronal reconstructions have been obtained Low dose protocols were performed. One or more of the following dose reduction techniques were used; automated exposure control, adjustment of the mA and/or KV according to patient size, use of iterative reconstruction technique. Findings: No significant ventricular enlargement. 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 No mass effect or midline shift Basal cisterns are not remarkable. Fourth ventricle is midline. Cranial vault intact. Prominent ethmoid right maxillary sinusitis Impression: Negative for acute hemorrhage, mass effect or midline shift Dictated By: Erasto Snyder MD Signed By: <Electronically signed by Erasto Snyder MD in OV> 01/02/25 1626 Ordering Physician: Trang Blanco MD Date of Service: 01/02/25 Procedure(s): CT angio stroke protocol Accession Number(s): [id number] cc: Erasto Snyder MD; Trang Blanco MD~ Examination: CTA carotids with intravenous contrast CTA brain, head with intravenous contrast. 2-D sagittal, coronal reconstructions. 3-D reconstructions. Exam date and time: January 02, 2025, 1442 hours INDICATIONS: Stroke alert today: Onset focal neurologic deficit Technique: Multiple CTA axial brain, head carotid images post intravenous contrast injection 75 cc, [id number]. 2-D sagittal, coronal reconstructions. 3-D reconstructions, 3-D post processing including vascular maximum intensity projection images. Low dose protocols were performed. One or more of the following dose reduction techniques were used; automated exposure control, adjustment of the mA and/or KV according to patient size, use of iterative reconstruction technique. Findings: Prominent right maxillary sinusitis No significant common carotid carotid bifurcation or internal carotid artery stenoses Very small vertebral arteries in the neck which appear grossly patent Intracranial vertebral arteries fill The basilar artery is extremely attenuated proximally and does not show opacification beginning axial image 82 through axial image 73 There is filling of the posterior cerebral arteries There is filling of the M1 segments middle cerebral arteries, middle cerebral artery trifurcation branches as well as anterior cerebral arteries IMPRESSION: On the axial images there is very poor filling of major portions of the basilar artery suspicious for thrombus and at least partial occlusion Dictated By: Erasto Snyder MD Signed By: <Electronically signed by Erasto Snyder MD in OV> 01/02/25 1724 Medications / Prescriptions Medications or Prescriptions considered but not ordered:: None Medication administrations:: Medication Administration History Discontinued Medications Acetaminophen (Acetaminophen 325 Mg Tablet) 650 mg PO X1 ONE Stop: 01/02/25 18:28 Last Admin: 01/02/25 18:39 Dose: Not Given Documented By: BY Non-Admin Reason: Patient Refused Labetalol HCl (Labetalol Inj 5 Mg/Ml Vial 4 Ml) 10 mg IVP X1 ONE Stop: 01/02/25 20:03 Last Admin: 01/02/25 20:09 Dose: 10 mg Documented By: DT Morphine Sulfate (Morphine Sulf Inj 4 Mg/Ml Vial) 6 mg IV X1 ONE Stop: 01/02/25 19:14 Last Admin: 01/02/25 19:26 Dose: 6 mg Documented By: DT Ondansetron HCl (Ondansetron Inj 2 Mg/Ml Inj 2 Ml) 4 mg IVP X1 ONE; Protocol Stop: 01/02/25 19:14 Last Admin: 01/02/25 19:23 Dose: 4 mg Documented By: DT See above Consultations Consultation(s) initiated? (list below): Yes Consultation #1 (Physician, Specialty, Details): See [facility] Diagnosis Neuro Differential Diagnosis: subarachnoid hemorrhage, cerebrovascular accident and transient cerebral ischemia Most likely diagnosis given after review of the tests above:: See [facility] Admission Indicated Admission indicated?: not indicated Explain why admission is indicated or not indicated:: Txfer for large vessel occclusion Admission Request Was there a request for admission?: No Disposition Plan Disposition Plan: Transfer Discharge Plan Plan Patient Disposition: [facility] Pt Being Transferred to: [facility] Service Needed for Transfer: Neurosurgery Prescriptions/Referrals Prescriptions/Med Rec: No Action ondansetron 4 mg tablet,disintegrating 4 mg PO Q8H PRN (Reason: Nausea And Vomiting) mirtazapine 30 mg tablet 60 mg PO HS rosuvastatin 10 mg tablet 10 mg PO HS Patient Comments: TAKE 1 TABLET BY MOUTH ONCE DAILY spironolactone 25 mg tablet 25 mg PO DAILY Patient Comments: TAKE 1 TABLET BY MOUTH ONCE DAILY levofloxacin 750 mg tablet 750 mg PO QDAY Qty: 5 0RF tamsulosin 0.4 mg capsule 0.4 mg PO QDAY Qty: 7 0RF promethazine-DM 6.25-15 mg/5 mL syrup 5 ml PO Q6H PRN (Reason: cough) Qty: 118 0RF albuterol sulfate [Ventolin HFA] 90 mcg/actuation HFA aerosol inhaler 2 inh inhalation Q4H PRN (Reason: shortness of breath or wheezing) Qty: 8.5 0RF ondansetron 4 mg tablet,disintegrating 4 mg PO Q8H Qty: 20 0RF nitrofurantoin monohyd/m-cryst [Macrobid] 100 mg capsule 100 mg PO BID Qty: 20 0RF Rx Instructions: must administer with a meal/food Eliquis 5 mg Tablet 5 mg PO BID losartan [Cozaar] 100 mg Tablet 100 mg PO DAILY metoprolol tartrate 25 mg Tablet 25 mg PO HS hydroxyzine HCl 10 mg Tablet 10 mg PO BID omeprazole 20 mg capsule,delayed release(DR/EC) 20 mg PO QDAY Qty: 30 0RF acetaminophen [Aphen] 325 mg tablet 650 mg PO QID PRN (Reason: pain) Qty: 60 0RF polyethylene glycol 3350 [Miralax] 17 gram powder in packet 17 g PO BID Qty: 30 1RF Rx Instructions: X 2 weeks and then once a day for 1 week. diltiazem HCl [DILT-XR] 120 mg capsule,ext.rel 24h degradable PO sertraline 100 mg tablet 100 mg PO QHSPRN Patient Comments: TAKE ONE TABLET BY MOUTH AT BEDTIME amitriptyline 100 mg tablet 100 mg PO .qhs Patient Comments: TAKE ONE TABLET BY MOUTH AT BEDTIME NEEDED conjugated estrogens 0.625 mg/gram cream 0.1 mg topical QDAY Qty: 30 0RF acetaminophen [Tylenol] 325 mg tablet 650 mg PO QID PRN (Reason: pain) Qty: 20 0RF ondansetron 4 mg tablet,disintegrating 4 mg PO Q8H PRN (Reason: nausea and vomiting) Qty: 20 0RF morphine 30 mg tablet extended release 30 mg PO Q12H MDD 2 tab Qty: 10 0RF Referrals: Pamella Parson [Primary Care Provider] - In 1 week Problem List Clinical Impression: Basilar artery insufficiency, Basilar artery occlusion Patient/Caregiver Discharge Instructions Print Language: Yi Stand Alone Forms: [employer] Award Info., Patient Portal Info Letter
--- NOTE | 2025-01-02 16:15 | EKG_ITS ---
[facility] Test Date: 2025-01-02 Pat Name: ESTEBAN MCCORMACK Department: Room: - Gender: Female Leak Patcher: : 1960 Requested By: Trang Joel Order Number: [id number] Reading MD: Trang Joel Measurements Intervals [place] Rate: 155 P: 19 OR: 189 QRS: 0 QRSD: 94 T: 66 QT: 233 QTc: 374 Interpretive Statements SINUS TACHYCARDIA WITH OCCASIONAL VENTRICULAR PREMATURE COMPLEXES, POSSIBLE ATRIAL FLUTTER NONSPECIFIC T-WAVE ABNORMALITY CRITICAL TEST RESULT Compared to ECG 12/15/2024 15:15:35 Sinus rhythm no longer present T-wave abnormality still present /store/S0/[id number].pdf
[2025-01-02 16:30] VITALS: PULSE 93; RESP 18; O2SAT 100
[2025-01-02 16:43] LABS: Basophils # (Auto) 0.1 Thou/mm3 (0.0-0.2); Basophils % (Auto) 1 % (0-2.5); Eosinophils # (Auto) 0.2 Thou/mm3 (0.0-0.5); Eosinophils % (Auto) 2 % (0-10); Hematocrit 37.9 % (36.0-46.0); Hemoglobin 12.6 g/dL (12.0-16.0); Immature Granulocytes Auto 0.02 Thou/mm3 (0.00-0.00); Lymphocytes # (Auto) 3.1 Thou/mm3 (1.0-4.8); Lymphocytes % (Auto) 33 % (10-50); Mean Corpuscular HGB Conc 33.2 g/dl (31.0-37.0); Mean Corpuscular Hemoglobin 30.7 pg (25.0-35.0); Mean Corpuscular Volume 92 fL (80-100); Monocytes # (Auto) 0.5 Thou/mm3 (0.0-0.8); Monocytes % (Auto) 5 % (0-12); Neutrophils # (Auto) 5.5 Thou/mm3 (1.8-7.7); Neutrophils % (Auto) 59 % (37-80); Nucleated Red Blood Cell # 0.00 Thou/mm3 (0.00-0.00); Nucleated Red Blood Cell % 0 /100 WBC (0); Platelet Count 352 Thou/mm3 (140-440); RDW Standard Deviation 50.5 fL (36.4-46.3); Red Blood Count 4.10 Miln/mm3 (4.00-5.20); White Blood Count 9.4 Thou/mm3 (3.6-11.0)
[2025-01-02 16:53] LABS: INR 1.0 (0.9-1.3); Partial Thromboplastin Time 26.5 Seconds (22.0-36.0); Prothrombin Time 10.2 Seconds (9.0-12.2)
[2025-01-02 17:00] VITALS: BMI 23.9
--- NOTE | 2025-01-02 17:03 | PC.NURSE ---
PER [facility] PATIENT WILL NOT BE NEEDING TNK AT THIS TIME, MD WILL FOLLOW UP WITH ER MD FOR FURTHER TREATMENT ORDERS
[2025-01-02 17:09] LABS: Alanine Aminotransferase 9 U/L (10-49); Albumin, Serum 4.6 gm/dL (3.4-4.8); Albumin/Globulin Ratio 1.8 (1.2-2.2); Alkaline Phosphatase 95 U/L (46-116); Anion Gap 8 (7-16); Aspartate Amino Transferase 17 U/L (0-34); BUN/Creatinine Ratio 11 Ratio (12-20); Bilirubin,Total 0.3 mg/dL (0.3-1.2); Blood Urea Nitrogen 10 mg/dL (9-23); Calcium 9.7 mg/dL (8.3-10.6); Calcium (Corrected) 9.7 mg/dL (8.5-10.1); Carbon Dioxide 25.7 mMol/L (20.0-31.0); Chloride 107 mMol/L (98-107); Creatinine (Component) 0.9 mg/dL (0.6-1.3); Estimated Creatinine Clearance 69.2 mL/min (>60); Globulin 2.6 gm/dL (2.3-3.5); Glucose 108 mg/dL (74-106); Magnesium 1.9 mg/dL (1.6-2.6); Osmolality,Calculated 281 (275-295); Potassium 3.8 mMol/L (3.4-5.1); Sodium 141 mMol/L (136-145); Total Protein 7.2 gm/dL (5.7-8.2); Troponin I < 0.020 ng/mL (0.0-0.045); eGFR > 60 See Note
--- NOTE | 2025-01-02 17:34 | PD.TNEURO ---
Tele Neuro Consultation Consultation Date 01/02/25 Most Recent Vital Signs Last Vital Signs Temp 98.7 F 01/02/25 16:12 Pulse 93 01/02/25 16:30 Resp 18 01/02/25 16:30 BP 167/87 H 01/02/25 16:12 Pulse Ox 100 01/02/25 16:30 O2 Del Method Room Air 01/02/25 16:12 Laboratory-Coagulation Panel PT 10.2 Seconds (9.0-12.2) 01/02/25 16:28 INR 1.0 (0.9-1.3) 01/02/25 16:28 APTT 26.5 Seconds (22.0-36.0) 01/02/25 16:28 Consultation Narrative [facility] TeleNeurology Consult Services Patient Name:???Radha Mcleod Date of :???1960 Identification Number:??? Date of Service:???01/02/2025 16:14:34 Diagnosis:?I63.89 - Cerebrovascular accident (CVA) due to other mechanism (HCCC) Impression: ?Ms. Mcleod is a 64 year-old woman with a PMH of HTN, Orthostatic Hypotension, A.fib (on Eliquis), Diverticulitis, Strokes, Breast Ca, s/p partial mastectomy, Kidney stones who presents with headache and left sided numbness and weakness. 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 . Our recommendations are outlined below. Recommendations: ? Stroke/Telemetry Floor ? Neuro Checks ? Bedside Swallow Eval ? DVT Prophylaxis ? IV Fluids, Normal Saline ? Head of Bed 30 Degrees ? Euglycemia and Avoid Hyperthermia (PRN Acetaminophen) ? Initiate or continue Aspirin 325 MG daily ? Antihypertensives PRN if Blood pressure is greater than 220/120 or there is a concern for End organ damage/contraindications for permissive HTN. If blood pressure is greater than 220/120 give labetalol PO or IV or Vasotec IV with a goal of 15% reduction in BP during the first 24 hours. ?- MRI Brain with and without contrast ?- TTE ?- Labs: lipid panel; HgbA1c ?- PT/OT/ST where applicable ?- Smoking cessation ?- Transfer for REYNOLD for partial occlusion of the basilar artery Sign Out: ? Discussed with Emergency Department Provider Advanced Imaging: CTA Head and Neck Completed. LVO:No Patient is not a candidate for REYNOLD Metrics: Last Known Well: 01/02/2025 15:45:00 Arrival Time: 01/02/2025 16:14:00 Activation Time: 01/02/2025 16:14:34 Initial Response Time: 01/02/2025 16:18:17Symptoms: Left sided numbness/weakness. Initial patient interaction: 01/02/2025 16:26:56 NIHSS Assessment Completed: 01/02/2025 16:29:04Patient is not a candidate for Thrombolytic. Thrombolytic Medical Decision: 01/02/2025 16:29:07Patient was not deemed candidate for Thrombolytic because of following reasons: Use of NOAC in last [address] Head: CT head unremarkable for acute infarction or hemorrhage per Radiology: no acute intracranial pathology Primary Provider Notified of Diagnostic Impression and Management Plan on: 01/02/2025 17:08:05 History of Present Illness:Patient is a 64 year old Female. Patient was brought by EMS for symptoms of Left sided numbness/weakness. Ms. Mcleod is a 64 year-old woman with a PMH of HTN, Orthostatic Hypotension, A.fib (on Eliquis), Diverticulitis, Strokes, Kidney Stones, Breast Ca, s/p mastectomy who presents with left sided numbness/weakness. She reports that she was visiting with a friend when she suddenly developed a severe headache. She describes the headache as a sharp pain located all over. She describes the headache as a 10/10 in intensity. She reports that the headache is associated with nausea but no vomiting. She reports some dizziness. She also reports that she developed left arm numbness and left leg tingling. She denies ever having had symptoms like this before. Past Medical History: ?Hypertension ?Atrial Fibrillation ?Stroke Medications: Anticoagulant use:??Yes?Eliquis No Antiplatelet use Reviewed EMR for current medications Allergies:? Reviewed Social History: Smoking: Yes Alcohol Use: No Drug Use: No Family History: There is no family history of premature cerebrovascular disease pertinent to this consultation ROS : 14 Points Review of Systems was performed and was negative except mentioned in HPI. Past Surgical History: There Is No Surgical History Contributory To Today?s Visit Examination: BP(167/87),?Pulse(105), 1A: Level of Consciousness - Alert; keenly responsive?+ 0 1B: Ask Month and Age - Both Questions Right?+ 0 1C: Blink Eyes & Squeeze Hands - Performs Both Tasks?+ 0 2: Test Horizontal Extraocular Movements - Normal?+ 0 3: Test Visual Laboy - No Visual Loss?+ 0 4: Test Facial Palsy (Use Grimace if Obtunded) - Partial paralysis (lower face)?+ 2 5A: Test Left Arm Motor Drift - No Effort Against Mercer?+ 3 5B: Test Right Arm Motor Drift - No Drift for 10 Seconds?+ 0 6A: Test Left Leg Motor Drift - No Movement?+ 4 6B: Test Right Leg Motor Drift - No Drift for 5 Seconds?+ 0 7: Test Limb Ataxia (FNF/Heel-Becerra) - No Ataxia?+ 0 8: Test Sensation - Mild-Moderate Loss: Less Sharp/More Dull?+ 1 9: Test Language/Aphasia - Normal; No aphasia?+ 0 10: Test Dysarthria - Normal?+ 0 11: Test Extinction/Inattention - No abnormality?+ 0 NIHSS Score:?10 Pre-Morbid Modified [place] Scale: 0 Points = No symptoms at all Spoke with :?ER Physician (Dr. Blanco) This consult was conducted in real time using interactive audio and video technology. Patient was informed of the technology being used for this visit and agreed to proceed. Patient located in hospital and provider located at home/office setting. Patient is being evaluated for possible acute neurologic impairment and high probability of imminent or life-threatening deterioration. I spent total of 47 minutes providing care to this patient, including time for face to face visit via telemedicine, review of medical records, imaging studies and discussion of findings with providers, the patient and/or family. Dr Donovan Graves [facility] For Inpatient follow-up with [facility] physician please call [facility] at . As we are not an outpatient service for any post hospital discharge needs please contact the hospital for assistance. If you have any questions for the [facility] physicians or need to reconsult for clinical or diagnostic changes please contact us via [facility] at . Non-radiologist review of imaging performed to assist with emergent clinical decision-making. Remote physician workstations do not possess the same resolution, calibration, or diagnostic capabilities as hospital-based radiology reading stations, and formal radiologist read is necessary. Signature :Live Graves
[2025-01-02 17:43] VITALS: BP 164/104; PULSE 93; RESP 16; O2SAT 98
--- NOTE | 2025-01-02 18:19 | PC.CM ---
Addendum entered by Piper Nuñez RN 01/03/25 08:16: Patient left to [facility] at 2130 yesterday. Addendum entered by Piper Nuñez RN 01/02/25 18:52: 1850 Patient has been accept by Dr. Doll at [facility]. I will put transfer packet together and I made a CD. Addendum entered by Piper Nuñez RN 01/02/25 18:43: 1830 I received a call from Юлия and I contacted Neuro at [facility] with Dr. Dowd. Original Note: 1804 I spoke to Nelida transfer nurse at [facility] to initiate transfer. I let Nelida know I faxed over the clinicals and I pushed over images. Leticia states she will review information and get back to me. I started packet and I will make a CD. 1744 I reviewed patient's clinicals and I faxed over images and I pushed over image to [facility]. 1729 I received a call to transfer patient for Neuro IR for basilar artery occlusion.
--- NOTE | 2025-01-02 18:20 | PD.EDADDENDU ---
Emergency Room Addendum Addendum Narrative: I took over the care from previous shift physician, Dr. Blanco, at 6 PM on 01/02/2025. See previous notes for complete H & P and ED course. I reviewed all diagnostic test results. Diagnoses include: CVA with basilar artery occlusion I [facility] (Dr. Doll). About the presentation and exam and diagnostics and treatments here. And need of further care there. Agreed accept the patient. During my watch, patient remained stable. Dinh Dowd MD
[2025-01-02 18:46] LABS: Collection Type, Urine Clean Catch
[2025-01-02 18:51] VITALS: BP 137/93; PULSE 90; RESP 16; O2SAT 100
[2025-01-02 18:57] VITALS: BP 137/93; PULSE 99; RESP 18; TEMP 36.6; O2SAT 99
[2025-01-02 19:10] LABS: Bacteria,Urine 4+; Bilirubin,Urine Negative (Negative); Blood,Urine Negative (Negative); Clarity,Urine Turbid (Clear/Hazy); Color,Urine Lt-Yellow (Lt Yel-Yel); Culture Indicated,Urine Contaminated; Glucose, Urine Negative (Negative); Ketones,Urine Negative (Negative); Leukocyte Esterase,Urine Negative (Negative); Nitrite,Urine Negative (Negative); PH,Urine 7.0 (5.0-7.0); Protein,Urine Negative (Neg - Trace); RBC,Urine 3 /hpf (0-3); Specific Gravity,Urine 1.043 (1.001-1.035); Squamous Epithelial Cell,Urine 63 /hpf (0-5); Urobilinogen,Urine Negative mg/dL (0.0-1.0); WBC,Urine 4 /hpf (0-5)
[2025-01-02] MEDS: ONDANSETRON INJ 2 MG/ML INJ 2 ML 4 MG IVP (19:23)
[2025-01-02] MEDS: MORPHINE SULF INJ 4 MG/ML VIAL 6 MG IV (19:26)
[2025-01-02 19:37] LABS: Amphetamine/Methamp Scrn,U Negative (Negative); Barbiturate Screen,Urine Negative (Negative); Benzodiazepines Screen,Urine Negative (Negative); Benzoylecgonine Screen, Ur Negative (Negative); Fentanyl Screen,Urine Negative (Negative); Opiate Screen,Urine Negative (Negative); THC Screen,Urine Negative (Negative)
--- NOTE | 2025-01-02 19:54 | PC.NURSE ---
[facility].
== END 2025-01-02 21:04 | disposition short-term general hospital (02) ==
PROVIDERS: Emergency Medicine; Emergency Provider Emergency Medicine
DX: I63.22 Cerebral infarction due to unspecified occlusion or stenosis of basilar artery (principal); G45.0 Vertebro-basilar artery syndrome; R00.0 Tachycardia, unspecified; I49.3 Ventricular premature depolarization; R41.4 Neurologic neglect syndrome; R53.1 Weakness; I10 Essential (primary) hypertension; F17.210 Nicotine dependence, cigarettes, uncomplicated; R29.712 NIHSS score 12; Z75.1 Person awaiting admission to adequate facility elsewhere
CPT/HCPCS: 36415; 70450; 70496; 70498; 71045; 80053; 80307; 81001; 83735; 84484; 85025; 85610; 85730; 93005; 96374; 96375; 99291; 99292; A4649; J1920; J2270; J2405; Q9967

== ENCOUNTER 2025-01-21 16:15 | Emergency (ER) | payer MEDICAID, SELFPAY ==
[2025-01-21 16:21] VITALS: BP 154/69; PULSE 104; RESP 20; TEMP 36.7; O2SAT 98; BMI 23.6
--- NOTE | 2025-01-21 16:31 | EDNOTE_ITS ---
<Statement entered by Sandra Villasenor MD - 01/22/25 17:47> As co-signing physician, I was present and available for consult prn. I concur with the plan and care as documented by the midlevel provider. ED Abdominal Pain RME/HPI General Chief Complaint: Abdominal Pain Stated complaint: PAIN SHANNEN KIDNEYS & LLQ ABD, N/V Time seen by provider: 01/21/25 16:27 Arrival date/time: 01/21/25 16:15 Source: patient, RN notes reviewed and old records reviewed Mode of arrival: ambulatory Limitations: no limitations RME / HPI RME / HPI narrative: 64yof presents to ED for 2-day history of bilateral flank pain and LLQ abdominal pain. Patient denies dysuria but reports urinary pressure s/p voiding and urinary urgency and frequency. She reports nausea and x3 episodes of vomiting today. No fever, diarrhea, bloody stools or hematuria reported. Patient has taken Tylenol with minimal relief. Related Data Home Medications ?Medication ?Instructions ?Recorded ?Confirmed apixaban 5 mg tablet (Eliquis) 5 mg PO BID 06/09/23 hydroxyzine HCl 10 mg tablet 10 mg PO BID 06/09/23 losartan 100 mg tablet (Cozaar) 100 mg PO DAILY 05/27/24 metoprolol tartrate 25 mg tablet 25 mg PO HS 06/09/23 08/20/23 mirtazapine 30 mg tablet 60 mg PO HS 08/20/23 4 ondansetron 4 mg disintegrating 4 mg PO Q8H PRN Nausea And Vomiting 08/20/23 08/20/23 tablet rosuvastatin 10 mg tablet 10 mg PO HS 08/20/23 4 spironolactone 25 mg tablet 25 mg PO DAILY 08/20/23 amitriptyline 100 mg tablet 100 mg PO .qhs 05/27/24 diltiazem HCl 120 mg mg PO 05/27/24 capsule,extended release 24 hr, controlled (DILT-XR) sertraline 100 mg tablet 100 mg PO QHSPRN 05/27/24 Held on 05/29/24. Instructions: Resume on 06/16/24. till antibiotic course is done and sees a PCP Previous Rx's ?Medication ?Instructions ?Recorded omeprazole 20 mg capsule,delayed 20 mg PO QDAY #30 cap s 08/14/23 release levofloxacin 750 mg tablet 750 mg PO QDAY pyelonephrit is #5 08/21/23 tabs tamsulosin 0.4 mg capsule 0.4 mg PO QDAY dysuria, hesi tancy 08/21/23 #7 caps acetaminophen 325 mg tablet (Aphen) 650 mg (2 x 325 mg ) PO QID PRN 08/25/23 pain #60 tabs polyethylene glycol 3350 17 gram 17 g PO BID #30 ea oral powder packet (Miralax) conjugated estrogens 0.625 mg/gram 0.1 mg topical QDAY #30 grams 05/29/24 vaginal cream acetaminophen 325 mg tablet 650 mg (2 x 325 mg) PO QID PRN 08/11/24 (Tylenol) pain #20 tabs ondansetron 4 mg disintegrating 4 mg PO Q8H PRN nausea and 08/11/24 tablet vomiting #20 tabs morphine 30 mg tablet,extended 30 mg PO Q12H #10 tabs 10/05/24 release albuterol sulfate 90 mcg/actuation 2 inh inhalation Q4 H PRN shortness 11/12/24 aerosol inhaler (Ventolin HFA) of breath or wheezing # 8.5 grams nitrofurantoin 100 mg PO BID #20 caps 11/12 monohydrate/macrocrystals 100 mg capsule (Macrobid) ondansetron 4 mg disintegrating 4 mg PO Q8H #20 tabs 1 tablet promethazine-DM 6.25 mg-15 mg/5 mL 5 ml PO Q6H PRN cou gh #118 mL 11/12/24 oral syrup nitrofurantoin 100 mg PO BID 7 days #14 cap s 01/21/25 monohydrate/macrocrystals 100 mg capsule (Macrobid) phenazopyridine 200 mg tablet 200 mg PO TID PRN pain 2 days #6 01/21/25 (Pyridium) tabs Allergies Allergy/AdvReac Type Severity Reaction Status Date / Time amoxicillin Allergy Severe ITCHY Verified 01/21/25 16:18 ceftriaxone (From Rocephin) Allergy Severe Swelling Verified 01/21/25 16:18 of Lip/Tongue/Throat cephalexin Allergy Severe Anaphylaxis Verified 01/21/25 16:18 dicyclomine (From Bentyl) Allergy Severe Rash Verified 01/21/25 16:18 hydrocodone Allergy Severe GI UPSET Verified 01/21/25 16:18 ibuprofen Allergy Severe Abdominal Verified 01/21/25 16:18 Pain ketorolac (From Toradol) Allergy Severe Hives Verified 01/21/25 16:18 meropenem Allergy Severe Anaphylaxis Verified 01/21/25 16:18 moxifloxacin Allergy Severe Hives Verified 01/21/25 16:18 Penicillins Allergy Severe HIVES,SWELL Verified 01/21/25 16:18 ING Sulfa (Sulfonamide Allergy Severe HIVES,SWELL Verified 01/21/25 16:18 Antibiotics) ING tramadol Allergy Severe Shakiness Verified 01/21/25 16:18 Review of Systems Review of Systems Systems Reviewed: All systems reviewed, normal except as documented Constitutional Constitutional: Denies chills and Denies fever(s) Gastrointestinal Gastrointestinal: Reports abdominal pain, Denies hematochezia, Denies loose stools, Denies melena, Reports nausea and Reports vomiting Genitourinary Genitourinary: Denies dysuria, Reports flank pain and Reports urinary urgency Comments: Reports urinary frequency Past Medical History Past Medical History NEUROLOGIC: Positive Transient Ischemic Attacks (TIA) CARDIAC: Positive Atrial Fibrillation, Hypercholesterolemia and Hypertension RESPIRATORY: Positive Chronic Obstructive Pulmonary Disease (COPD) GASTROINTESTINAL: Positive Diverticulitis and Gastroesophageal Reflux Disease REPRODUCTIVE: Positive Breast Cancer MUSCULOSKELETAL: Positive Arthritis, Rheumatoid Arthritis, Osteoporosis and Degenerative Disk Disease PSYCHO/SOCIAL: Positive Anxiety and Post Traumatic Stress Disorder OTHER HISTORY: Positive Breast Cancer Surgical History SURGICAL: Positive Mastectomy and Hysterectomy Social History SMOKING STATUS: Current every day smoker SECOND HAND EXPOSURE: No SUBSTANCE USE: does not use ED Exam General Limitations: Present no limitations General appearance: Present alert and in no apparent distress Head Head exam: Present atraumatic and normocephalic Eye Eye exam: Present normal appearance, PERRL and EOMI ENT ENT exam: Present normal exam and mucous membranes moist Neck Neck exam: Present normal inspection and full ROM Chest Chest inspection: Present normal inspection and symmetric chest wall rise Respiratory Respiratory exam: Present normal lung sounds bilaterally; Absent respiratory distress Cardiovascular Cardiovascular exam: Present normal rhythm and tachycardia (Mild HR 104) Abdominal Exam Abdominal exam: Present soft; Absent distention, tenderness, guarding or rebound Extremities Exam Extremities exam: Present normal inspection and full ROM Back Exam Back exam: Absent CVA tenderness (R) or CVA tenderness (L) Neurological Exam Neurological exam: Present alert and oriented X3 Psychiatric Psychiatric exam: Present normal affect and normal mood Skin Skin exam: Present warm, dry, intact and normal color Course Quality Measures none Orders Category Date Time Status CT Screening NOW Care 01/21/25 16:[address] abdomen pelvis w con Stat Exams 01/21/25 16:35 Completed CBC Stat Lab 01/21/25 16:51 Completed CMP [Comprehensive Metabolic Panel] Stat Lab 01/21/25 16:51 Completed Lipase Stat Lab 01/21/25 16:51 Completed UA [Urinalysis] Stat Lab 01/21/25 18:00 Completed Morphine* Inj Med 01/21/25 21:03 Discontinued 2 mg IM X1 ONE Morphine* Inj Med 01/21/25 16:35 Discontinued 4 mg IM X1 ONE Ondansetron Odt [Zofran Odt] Med 01/21/25 16:35 Discontinued 4 mg PO X1 ONE Vital Signs Vital signs: Vital Signs Temperature 98.1 F 01/21/25 16:21 Pulse Rate 104 H 01/21/25 16:21 Respiratory Rate 20 01/21/25 16:21 Blood Pressure 154/69 H 01/21/25 16:21 Pulse Oximetry (%) 98 01/21/25 16:21 Oxygen Delivery Method Room Air 01/21/25 16:21 Abdominal Pain MDM MDM Narrative MDM Narrative:: 64yof presents to ED for 2-day history of bilateral flank pain and LLQ abdominal pain. Patient denies dysuria but reports urinary pressure s/p voiding and urinary urgency and frequency. She reports nausea and x3 episodes of vomiting today. No fever, diarrhea, bloody stools or hematuria reported. Patient has taken Tylenol with minimal relief. Will treat for UTI. ED workup reassuring. Encouraged adequate fluids, symptomatic treatment prn. Stable for dc, RTED precautions given. Patient data External records reviewed:: [facility] previous records (01/02/25 basilar artery insufficiency) Clinical information provided by:: patient Social determinants that could affect healthcare access:: other (specify) (poor access to healthcare) Patient has the following chronic illnesses:: afib, HTN, COPD How is presenting disease/condition affected by chronic disease/condition?: uneffected by Evaluation data The following diagnostics were reviewed and interpreted by me:: lab results and radiology exam(s) Lab and/or radiology exams considered but not ordered:: none Interpretation Summary: No leukocytosis No KASSI UA +leuks/bacteria CT abd/pelvis IMPRESSION: Severely scarred left kidney Nonobstructing bilateral renal calculi No hydronephrosis or ureteral calculi Normal appendix Diffuse colonic diverticulosis, no diverticulitis Dictated By: Erasto Snyder MD Medications / Prescriptions Medications or Prescriptions considered but not ordered:: none Medication administrations:: Medication Administration History Discontinued Medications Morphine Sulfate (Morphine Sulf Inj 4 Mg/Ml Vial) 4 mg IM X1 ONE Stop: 01/21/25 16:36 Last Admin: 01/21/25 17:23 Dose: 4 mg Documented By: NIKOLAS Morphine Sulfate (Morphine Sulf Inj 4 Mg/Ml Vial) 2 mg IM X1 ONE Stop: 01/21/25 21:04 Last Admin: 01/21/25 21:11 Dose: 2 mg Documented By: NIKOLAS Ondansetron HCl (Ondansetron Odt 4 Mg Tabrap) 4 mg PO X1 ONE; Protocol Stop: 01/21/25 16:36 Last Admin: 01/21/25 17:23 Dose: 4 mg Documented By: NIKOLAS above medications administered in ED Consultations Consultation(s) initiated? (list below): No Diagnosis Differential diagnosis abdominal pain: other (UTI, pyelonephritis, kidney stone, diverticulitis, gastroenteritis, constipation, SBO) Most likely diagnosis given after review of the tests above:: UTI Admission Indicated Admission indicated?: not indicated Admission Request Was there a request for admission?: No Disposition Plan Disposition Plan: Discharge Discharge Attestation Discharge Attestation: The patient and all family members were given an opportunity to ask questions and understood the discharge instructions. Discharge instructions specifically effects, indications for sooner follow up or return to the emergency department, and the expected course of current diagnosis. Patient condition: Stable Discharge Plan Plan Patient Disposition: HOME (Self Care) Patient condition on transfer: Stable Prescriptions/Referrals Prescriptions/Med Rec: New phenazopyridine [Pyridium] 200 mg tablet 200 mg PO TID PRN (Reason: pain) 2 Days Qty: 6 0RF nitrofurantoin monohyd/m-cryst [Macrobid] 100 mg capsule 100 mg PO BID 7 Days Qty: 14 0RF Rx Instructions: must administer with a meal/food No Action ondansetron 4 mg tablet,disintegrating 4 mg PO Q8H PRN (Reason: Nausea And Vomiting) mirtazapine 30 mg tablet 60 mg PO HS rosuvastatin 10 mg tablet 10 mg PO HS Patient Comments: TAKE 1 TABLET BY MOUTH ONCE DAILY spironolactone 25 mg tablet 25 mg PO DAILY Patient Comments: TAKE 1 TABLET BY MOUTH ONCE DAILY levofloxacin 750 mg tablet 750 mg PO QDAY Qty: 5 0RF tamsulosin 0.4 mg capsule 0.4 mg PO QDAY Qty: 7 0RF promethazine-DM 6.25-15 mg/5 mL syrup 5 ml PO Q6H PRN (Reason: cough) Qty: 118 0RF albuterol sulfate [Ventolin HFA] 90 mcg/actuation HFA aerosol inhaler 2 inh inhalation Q4H PRN (Reason: shortness of breath or wheezing) Qty: 8.5 0RF ondansetron 4 mg tablet,disintegrating 4 mg PO Q8H Qty: 20 0RF nitrofurantoin monohyd/m-cryst [Macrobid] 100 mg capsule 100 mg PO BID Qty: 20 0RF Rx Instructions: must administer with a meal/food Eliquis 5 mg Tablet 5 mg PO BID losartan [Cozaar] 100 mg Tablet 100 mg PO DAILY metoprolol tartrate 25 mg Tablet 25 mg PO HS hydroxyzine HCl 10 mg Tablet 10 mg PO BID omeprazole 20 mg capsule,delayed release(DR/EC) 20 mg PO QDAY Qty: 30 0RF acetaminophen [Aphen] 325 mg tablet 650 mg PO QID PRN (Reason: pain) Qty: 60 0RF polyethylene glycol 3350 [Miralax] 17 gram powder in packet 17 g PO BID Qty: 30 1RF Rx Instructions: X 2 weeks and then once a day for 1 week. diltiazem HCl [DILT-XR] 120 mg capsule,ext.rel 24h degradable PO sertraline 100 mg tablet 100 mg PO QHSPRN Patient Comments: TAKE ONE TABLET BY MOUTH AT BEDTIME amitriptyline 100 mg tablet 100 mg PO .qhs Patient Comments: TAKE ONE TABLET BY MOUTH AT BEDTIME NEEDED conjugated estrogens 0.625 mg/gram cream 0.1 mg topical QDAY Qty: 30 0RF acetaminophen [Tylenol] 325 mg tablet 650 mg PO QID PRN (Reason: pain) Qty: 20 0RF ondansetron 4 mg tablet,disintegrating 4 mg PO Q8H PRN (Reason: nausea and vomiting) Qty: 20 0RF morphine 30 mg tablet extended release 30 mg PO Q12H MDD 2 tab Qty: 10 0RF Referrals: No Primary/Family,Physician [Primary Care Provider] - In 1 week Problem List Clinical Impression: UTI (urinary tract infection) Patient/Caregiver Discharge Instructions Education Materials: ED CYSTITIS Female Adult Print Language: Maori Stand Alone Forms: [facility]anki Award Info., Patient Portal Info Letter PA/CHIEF INTERNAL AUDITOR Supervising Physician PA/CHIEF INTERNAL AUDITOR Supervising Physician: [place]
--- NOTE | 2025-01-21 16:35 | XR_ITS ---
Examination: CT abdomen with intravenous contrast CT pelvis with intravenous contrast 2-D coronal reconstructions 2-D sagittal reconstructions Date and time of exam: January 21, 2025, 1919 hours COMPARISON: November 29, 2024 INDICATIONS: Abdominal pain with bilateral flank pain today, history severely scarred left kidney with nonobstructing left renal calculi nonobstructing right renal calculi. CTDI: vol (mGy) 7.29 DLP: (mGycm) 434 Technique: Multiple axial sections of the abdomen and pelvis have been obtained. 64 slice high-resolution scanner used. 3 mm axial sections have been obtained, post intravenous injection 60 cc [id number] 2-D sagittal, coronal reconstructions obtained. Low dose protocols were performed. One or more of the following dose reduction techniques were used; automated exposure control, adjustment of the mA and/or KV according to patient size, use of iterative reconstruction technique. Findings: No focal liver or splenic lesions No gallstones No extrahepatic biliary tract dilatation No pancreatic or adrenal mass Severely scarred left kidney nonobstructing bilateral renal calculi, no hydronephrosis or ureteral calculi Aorta normal size Diffuse colonic diverticulosis Normal appendix No diverticulitis No bladder mass or bladder calculi Absent uterus No pelvic mass Severe osteopenia with advanced disc narrowing L2-L3 moderate disc narrowing L5-S1 Moderate bilateral hip osteoarthritis IMPRESSION: Severely scarred left kidney Nonobstructing bilateral renal calculi No hydronephrosis or ureteral calculi Normal appendix Diffuse colonic diverticulosis, no diverticulitis
[2025-01-21 17:22] LABS: Basophils # (Auto) 0.1 Thou/mm3 (0.0-0.2); Basophils % (Auto) 1 % (0-2.5); Eosinophils # (Auto) 0.3 Thou/mm3 (0.0-0.5); Eosinophils % (Auto) 3 % (0-10); Hematocrit 38.0 % (36.0-46.0); Hemoglobin 12.8 g/dL (12.0-16.0); Immature Granulocytes Auto 0.02 Thou/mm3 (0.00-0.00); Lymphocytes # (Auto) 3.1 Thou/mm3 (1.0-4.8); Lymphocytes % (Auto) 32 % (10-50); Mean Corpuscular HGB Conc 33.7 g/dl (31.0-37.0); Mean Corpuscular Hemoglobin 31.4 pg (25.0-35.0); Mean Corpuscular Volume 93 fL (80-100); Monocytes # (Auto) 0.6 Thou/mm3 (0.0-0.8); Monocytes % (Auto) 6 % (0-12); Neutrophils # (Auto) 5.6 Thou/mm3 (1.8-7.7); Neutrophils % (Auto) 58 % (37-80); Nucleated Red Blood Cell # 0.00 Thou/mm3 (0.00-0.00); Nucleated Red Blood Cell % 0 /100 WBC (0); Platelet Count 351 Thou/mm3 (140-440); RDW Standard Deviation 51.2 fL (36.4-46.3); Red Blood Count 4.08 Miln/mm3 (4.00-5.20); White Blood Count 9.7 Thou/mm3 (3.6-11.0)
[2025-01-21] MEDS: MORPHINE SULF INJ 4 MG/ML VIAL IM (17:23)
[2025-01-21] MEDS: ONDANSETRON ODT 4 MG TABRAP PO (17:23)
[2025-01-21 17:34] LABS: Alanine Aminotransferase 12 U/L (10-49); Albumin, Serum 4.8 gm/dL (3.4-4.8); Albumin/Globulin Ratio 1.8 (1.2-2.2); Alkaline Phosphatase 119 U/L (46-116); Anion Gap 6 (7-16); Aspartate Amino Transferase 19 U/L (0-34); BUN/Creatinine Ratio 13 Ratio (12-20); Bilirubin,Total 0.2 mg/dL (0.3-1.2); Blood Urea Nitrogen 14 mg/dL (9-23); Calcium 9.9 mg/dL (8.3-10.6); Calcium (Corrected) 9.9 mg/dL (8.5-10.1); Carbon Dioxide 32.0 mMol/L (20.0-31.0); Chloride 104 mMol/L (98-107); Creatinine (Component) 1.1 mg/dL (0.6-1.3); Estimated Creatinine Clearance 56.6 mL/min (>60); Globulin 2.7 gm/dL (2.3-3.5); Glucose 117 mg/dL (74-106); Lipase 35 U/L (12-53); Osmolality,Calculated 284 (275-295); Potassium 4.0 mMol/L (3.4-5.1); Sodium 142 mMol/L (136-145); Total Protein 7.5 gm/dL (5.7-8.2); eGFR 56 See Note
[2025-01-21 18:28] LABS: Collection Type, Urine Clean Catch
[2025-01-21 18:42] LABS: Bacteria,Urine 4+; Bilirubin,Urine Negative (Negative); Blood,Urine Negative (Negative); Clarity,Urine Turbid (Clear/Hazy); Color,Urine Lt-Yellow (Lt Yel-Yel); Glucose, Urine Negative (Negative); Ketones,Urine Negative (Negative); Leukocyte Esterase,Urine Positive (Negative); Nitrite,Urine Negative (Negative); PH,Urine 6.5 (5.0-7.0); Protein,Urine Negative (Neg - Trace); RBC,Urine 4 /hpf (0-3); Specific Gravity,Urine 1.015 (1.001-1.035); Squamous Epithelial Cell,Urine 27 /hpf (0-5); Urobilinogen,Urine Negative mg/dL (0.0-1.0); WBC,Urine 18 /hpf (0-5)
[2025-01-21] MEDS: MORPHINE SULF INJ 4 MG/ML VIAL 2 MG IM (21:11)
[2025-01-21 21:19] VITALS: BP 148/79; PULSE 97; RESP 18; TEMP 36.7; O2SAT 98
--- NOTE | 2025-01-21 21:21 | PC.NURSE ---
[facility] TRANSPORTATION SETUP FOR PT AT THIS TIME. ID #[id number]. PT WAITING INSIDE ED LOBBY AT THIS TIME
== END 2025-01-21 21:33 | disposition home or self-care (01) ==
PROVIDERS: Physician Assistant; Emergency Provider Emergency Medicine
DX: N39.0 Urinary tract infection, site not specified (principal); N20.0 Calculus of kidney; K57.30 Diverticulosis of large intestine without perforation or abscess without bleeding; R11.2 Nausea with vomiting, unspecified
CPT/HCPCS: 36415; 74177; 80053; 81001; 83690; 85025; 96372; 99283; A4649; J2270; Q0162; Q9967